=== PATIENT | female | born 1935 | race Caucasian/White ===

== ENCOUNTER → 2017-06-15 | Outpatient (CLI) | payer MEDICARE ==
[~2017-06-15] MED LIST: ACET-2303 PO; ALLP300T PO; AMLO10TA82 PO; AMLO1TAB2; ASP81TEC PO; ATEN100T88 PO; ATRV10T PO; B12; B12 INJECTION SQ; CALC-671; CALC-80 PO; CARV3.122 PO; CHOL2000 PO; CITA10TA70 PO; CYCL10TA9 PO; DIOVAN; DULO60CA6 PO; FURO40TA4 PO; K CL; LNS30CCR; NF-ESOM40C PO; PANT20TA2 PO; POTA20TA15 PO; PSYL1PAC15 PO; TERA2CAP4; TERA5CAP10 PO; VENL150C; VLS80C PO
== END ==
LOC: CARD 08:17
PROVIDERS: ATTEND Nurse Practitioner Family
DX: I65.23 Occlusion and stenosis of bilateral carotid arteries (principal); I10 Essential (primary) hypertension; E78.4 Other hyperlipidemia; I49.3 Ventricular premature depolarization
CPT/HCPCS: 93306

== ENCOUNTER 2018-01-25 07:41 | Day surgery (SDC) | payer MEDICARE ==
[~2018-01-25] VITALS: Ht 167.6 cm; Wt 108.9 kg
[~2018-01-25 07:41] MED LIST changes: +ACET-77 PO; +ALLO300T2 PO; +AMLO10TA2 PO; +ASPI-999 PO; +ATOR10TA66 PO; +CYAN100092 IJ; +CYCL1DRO OU; +DICL100G18 TP; +DOCU-143 PO; +DULO60CA58 PO; +FURO80TA3 PO; +PANT40TA2 PO; +POTA-51 PO; +TERA5CAP3 PO; +VALS160T29 PO
[2018-01-25 07:50] VITALS: BP 139/70
[2018-01-25] MEDS: TETRACAINE 0.5% OPHTH SOLN 4 ML BTL (SINGLE DOSE ONLY) OU PRN ×3 (08:08→08:26)
[2018-01-25] MEDS: PHENYLEPHRINE 10% OPHTH (NEO-SYN) 5 ML BTL OU PRN ×3 (08:11→08:25)
[2018-01-25] MEDS: TROPICAMIDE 1% OPH SOLN (MYDRIACYL) 15 ML BTL OU PRN ×3 (08:11→08:25)
--- NOTE | 2018-01-25 08:51 | Ophthalmology Operative Report ---
Pre-Operative Progress Note H&P Reviewed The H&P was reviewed, patient examined and no changes noted. Date H&P Reviewed: Jan 25, 2018 Time H&P Reviewed: 08:51 Pre-Op Dx Secondary Cataract, Bilateral Eyes JAMI CHRISTIE MD Jan 25, 2018 08:51
--- NOTE | 2018-01-25 09:00 | Ophthalmology Operative Report ---
YAG Capsulotomy PREOPERATIVE DIAGNOSIS: Secondary Cataract Bilateral POSTOPERATIVE DIAGNOSIS: Secondary Cataract Bilateral PROCEDURE: YAG Capsulotomy, Bilateral SURGEON: Ti Christie ANESTHESIA: Topical anesthesia COMPLICATIONS: None ESTIMATED BLOOD LOSS: Minimal DESCRIPTION OF PROCEDURE: After proper informed consent was obtained, the patient's, a 82 female , received one drop of Tropicamide and one drop of Tetracaine in each eye. The patient was then placed at the YAG laser and using a power of [3.8 ] millijoules and bursts [21 ] right eye and [ 24] left eye were used to fashion a central capsulotomy. The patient tolerated the procedure well without complications and the patient's pressure was [ 11/12] shortly after the laser. TI CHRISTIE MD Jan 25, 2018 09:00
== END 2018-01-25 09:00 | disposition home or self-care (01) ==
LOC: SDC 07:41
PROVIDERS: ATTEND Specialist
DX: H26.40 Unspecified secondary cataract (principal); I10 Essential (primary) hypertension; Z79.82 Long term (current) use of aspirin

== ENCOUNTER → 2018-02-19 | Outpatient (CLI) | payer MEDICARE ==
[~2018-02-19] MED LIST changes: +CATHETER FLUSH 10 ML SYR IV PRN; +IOHEXOL 350 MG/ML 100 ML (OMNIPAQUE 350) VIAL IV ONE; +NS 100 ML (IVPB) BAG IV ONE
[2018-02-19 11:37] LABS: BASOPHILS % (AUTO) 1 % (0-10); EOSINOPHILS # (AUTO) 0.1 10^3/uL (0.0-0.3); EOSINOPHILS % (AUTO) 2 % (0-10); HEMATOCRIT 38 % (35-52); HEMOGLOBIN 12.6 G/DL (11.5-16.0); LYMPHOCYTES # (AUTO) 1.3 X 10^3 (1.0-4.0); LYMPHOCYTES % (AUTO) 31 % (12-44); MEAN CORPUSCULAR HEMOGLOBIN 32 PG (25-34); MEAN CORPUSCULAR HGB CONC 33 G/DL (32-36); MEAN CORPUSCULAR VOLUME 98 FL (80-99); MEAN PLATELET VOLUME 11.1 FL (7.4-10.4); MONOCYTES # (AUTO) 0.5 X 10^3 (0.0-1.0); MONOCYTES % (AUTO) 13 % (0-12); NEUTROPHILS # (AUTO) 2.2 X 10^3 (1.8-7.8); NEUTROPHILS % (AUTO) 53 % (42-75); PLATELET COUNT 152 10^3/uL (130-400); RED CELL DISTRIBUTION WIDTH 13.3 % (10.0-14.5); WHITE BLOOD COUNT 4.1 10^3/uL (4.3-11.0)
[2018-02-19 11:55] LABS: ALANINE AMINOTRANSFERASE 25 U/L (0-55); ALBUMIN 4.3 GM/DL (3.2-4.5); ALKALINE PHOSPHATASE 93 U/L (40-136); BILIRUBIN,TOTAL 0.6 MG/DL (0.1-1.0); BUN/CREATININE RATIO 27; CALCIUM 9.6 MG/DL (8.5-10.1); CARBON DIOXIDE 26 MMOL/L (21-32); CHLORIDE 108 MMOL/L (98-107); CREATININE SERUM 0.85 MG/DL (0.60-1.30); GFR ESTIMATED > 60; GLUCOSE 118 MG/DL (70-105); POTASSIUM 5.2 MMOL/L (3.6-5.0); SODIUM 142 MMOL/L (135-145); TOTAL PROTEIN 7.2 GM/DL (6.4-8.2)
--- NOTE | 2018-02-19 14:19 | Diagnostic Imaging Report ---
PROCEDURE: CT head with and without contrast. TECHNIQUE: Multiple contiguous axial images were obtained through the brain before and after the administration of intravenous contrast. INDICATION: Loss of balance, visual complaints two months' duration. COMPARISON: No priors. Pre and post IV contrast-enhanced head CT performed. FINDINGS: There is an incidental ventricular variant with cavum septum pellucidum. There is no hydrocephalus. Cerebral cortical volume is unremarkable for age and there is only mild periventricular white matter small vessel sequela unremarkable in a patient of this age. Mild intracranial atherosclerotic vascular calcifications are present. No suspicious parenchymal or meningeal enhancement following contrast is revealed. Orbits, sinuses, and calvarium appear nonacute. IMPRESSION: Mild senescent changes unremarkable for age and incidental ventricular variant noted. No acute or suspicious abnormality. Dictated by: Dictated on workstation # [id number]
--- NOTE | 2018-02-19 14:21 | Diagnostic Imaging Report ---
INDICATION: Loss of balance, visual complaints. COMPARISON: No priors for comparison. TECHNIQUE: Pre-and post IV contrast enhanced CT orbits and IACs performed with multiplanar reconstructions. FINDINGS: There is no post-septal or retrobulbar inflammatory process. The optic nerves, extraocular muscles and their tendinous attachments appear normal. No proptosis. No distortion of the intra-or extraconal orbital fat. The anterior and posterior felipe of the frontal sinuses are intact. Nasal septum and nasal bones unremarkable. The ethmoid air cells are clear and well expanded. The sphenoid sinuses are clear. The maxillary sinuses are clear. There is no mastoid effusion. Ossicular chains and middle ear cavities appeared unremarkable. The external auditory canals unremarkable. There are arthritic changes to the left greater than right temporomandibular joints without osseous dislocation of the TMJs. The zygomatic arches were intact. The nasopharynx appeared unremarkable. There is intracranial atherosclerotic vascular calcifications chronic. No soft tissue mass or fluid collection. No appreciable facial lymphadenopathy. No CT apparent cerebellopontine angle mass or mass effect. There is enhancement of the intrathecal vertebrals, the basilar and the visualized DRAIN CLEANER segments. IMPRESSION: Unremarkable pre-and post-IV contrast-enhanced facial CT. Dictated by: Dictated on workstation # [id number]
== END ==
LOC: RAD 11:21
PROVIDERS: ATTEND Optometrist
DX: H53.459 Other localized visual field defect, unspecified eye (principal); R26.9 Unspecified abnormalities of gait and mobility
CPT/HCPCS: 36415; 70470; 70482; 80053; 82565; 84520; 85025

== ENCOUNTER → 2018-12-26 | Outpatient (CLI) | payer MEDICARE ==
[~2018-12-26] MED LIST changes: -AMLO10TA2 PO; +AMLO10TA7 PO; -CATHETER FLUSH 10 ML SYR IV PRN; -IOHEXOL 350 MG/ML 100 ML (OMNIPAQUE 350) VIAL IV ONE; -NS 100 ML (IVPB) BAG IV ONE
--- NOTE | 2018-12-26 14:18 | Diagnostic Imaging Report ---
PROCEDURE: MRI left upper extremity without contrast. TECHNIQUE: Multiplanar, multisequence non contrast-enhanced MRI of the left upper extremity was accomplished. INDICATION: Chronic left shoulder pain for 2 years. No known injury. COMPARISON: None FINDINGS: No acute fractures seen in the left shoulder. There are severe degenerative changes in the glenohumeral joint with complete joint space loss, prominent osteophytes, and remodeling of the articular surfaces. There are moderate degenerative changes in the acromioclavicular joint. There is a large glenohumeral joint effusion with marked distention of the superior subscapularis recess and the proximal long head of the biceps tendon sheath. Multiple joint bodies are seen, which are mostly posterior, however there is a very large joint body measuring up to 2.8 cm in size in the superior subscapularis recess. The supraspinatus tendon demonstrates mild tendinosis with low-grade partial thickness tearing at the undersurface. The infraspinatus tendon demonstrates low-grade partial thickness tearing distally. The teres minor tendon is intact. The subscapularis tendon is bowed, but appears to remain intact. The long head of the biceps tendon appears intact. There is extensive degenerative tearing throughout the glenoid labrum. No para-labral cyst is seen. The spinoglenoid and suprascapular notches are clear. The acromion has a curved undersurface without significant hooking. The coracoacromial and coracoclavicular ligaments are intact. There is moderate atrophy of the supraspinatus muscle and mild generalized muscular atrophy present. No other fluid collections or masses are seen. There is no axillary lymphadenopathy. IMPRESSION: 1. Severe degenerative changes in the left glenohumeral joint with articular surface remodeling. 2. Very large glenohumeral joint effusion with a large anterior joint body. 3. Low-grade partial thickness tears in the supraspinatus and infraspinatus tendon with no high-grade partial-thickness or full-thickness rotator cuff tear seen. 4. Moderate atrophy of the supraspinatus muscle superimposed on mild generalized muscular atrophy. Dictated by: Dictated on workstation # [id number]
== END ==
LOC: RAD 12:31
PROVIDERS: ATTEND Family Medicine
DX: M75.102 Unspecified rotator cuff tear or rupture of left shoulder, not specified as traumatic (principal); M19.012 Primary osteoarthritis, left shoulder
CPT/HCPCS: 73221

== ENCOUNTER → 2019-01-20 | Outpatient (CLI) | payer MEDICARE | LOC: ORTHO 13:12 | PROVIDERS: ATTEND Orthopaedic Surgery | DX: M75.112 Incomplete rotator cuff tear or rupture of left shoulder, not specified as traumatic (principal); M19.012 Primary osteoarthritis, left shoulder ==

== ENCOUNTER 2019-03-20 12:54 | Outpatient (RCR) | payer MEDICARE ==
[~2019-03-20 12:54] MED LIST changes: -DULO60CA58 PO; +DULO60CA59 PO
== END 2019-04-16 08:22 | disposition home or self-care (01) ==
PROVIDERS: ATTEND Orthopaedic Surgery
DX: M17.12 Unilateral primary osteoarthritis, left knee (principal); M51.36 Other intervertebral disc degeneration, lumbar region

== ENCOUNTER 2019-05-14 13:52 | Outpatient (RCR) | payer MEDICARE | END 2019-06-10 14:13 | disposition home or self-care (01) | PROVIDERS: ATTEND Physician Assistant | DX: Z47.1 Aftercare following joint replacement surgery (principal); Z96.652 Presence of left artificial knee joint ==

== ENCOUNTER → 2019-06-19 | Outpatient (CLI) | payer MEDICARE ==
[~2019-06-19] MED LIST changes: +CATHETER FLUSH 10 ML SYR IV PRN
--- NOTE | 2019-06-19 12:50 | Diagnostic Imaging Report ---
INDICATION: Nausea. TECHNIQUE: Patient was administered 5.3 mCi technetium 99m Choletec intravenously and imaging over the abdomen was performed. At 45 minutes, patient ingested 8 ounces of Ensure and a gallbladder ejection fraction was calculated. FINDINGS: There is homogeneous uptake of activity by the liver with prompt excretion of activity into the common duct and gallbladder. Normal passage of activity into the small bowel is seen. Gallbladder ejection fraction is slightly low at 32%. Normal values are 33% or greater. IMPRESSION: 1. Patent cystic duct and common bile duct. 2. Slightly low gallbladder ejection fraction of 32%. Dictated by: Dictated on workstation # [id number]
== END ==
LOC: CARD 09:43
PROVIDERS: ATTEND Family Medicine
DX: R11.0 Nausea (principal)
CPT/HCPCS: 78227

== ENCOUNTER 2019-07-14 05:30 | Outpatient (CLI) | payer MEDICARE ==
[~2019-07-14] VITALS: Ht 160 cm; Wt 103.2 kg
[~2019-07-14 05:30] MED LIST changes: -CATHETER FLUSH 10 ML SYR IV PRN
[2019-07-14] MEDS ORDERED: RANI-613 PO (10:37)
[2019-07-14] MEDS ORDERED: LOSA100T3 PO (10:37)
[2019-07-17] MEDS ORDERED: HYDR-34 PO (12:36)
[2019-07-17] MEDS ORDERED: CARB1TAB6 PO (13:16)
== END 2019-07-14 10:40 | disposition home or self-care (01) ==
LOC: PREOP 05:30
PROVIDERS: ATTEND Surgery
DX: Z01.818 Encounter for other preprocedural examination (principal)

== ENCOUNTER 2020-11-10 15:15 | Emergency (ER) | payer MEDICARE ==
[~2020-11-10] VITALS: Ht 167.7 cm; Wt 108.9 kg
[~2020-11-10 15:15] MED LIST changes: -ACET-77 PO; +ACET-78 PO; +AMLO-251 PO; -AMLO10TA7 PO; +CARB1TAB6 PO; +HYDR-34 PO; +LOSA100T3 PO; +RANI-613 PO; -TERA5CAP3 PO
--- NOTE | 2020-11-10 15:43 | ED Cardiac General ---
History of Present Illness General Stated Complaint: AFLUTTER / HIGH BLOOD PRESSURE 180/80 History of Present Illness Date Seen by Provider: Nov 10, 2020 Time Seen by Provider: 15:20 Initial Comments 85-year-old female presents for hypertension and flutter in her chest. She has a longstanding cardiac history and sees Dr. Arita for her blood pressure and CAD. 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 She denies any chest pain. She does report shortness of air with any aggressive activity but she is also complaining of mild discomfort in her left upper abdomen related to hiatal hernia, she is aware it needs surgery. She has been under more stressors lately related to her son passing 6 months ago. She has taken Cymbalta for many years and is wondering if the added life events might require additional medication. Timing/Duration: 2-3 days Prior CP/Workup: cardiac cath NTG SL STORE DETECTIVE: No ASA po STORE DETECTIVE: No Associated Systoms: No Chest Pain; Malaise, Shortness of Air (with activity and related to hernia) Allergies and Home Medications Allergies Coded Allergies: No Known Drug Allergies (Unverified , 01/23/18) Home Medications Acetaminophen 500 Mg Tablet, 1,000 MG PO Q6H PRN for PAIN-MILD (1-4), (Reported) Allopurinol 300 Mg Tablet, 300 MG PO DAILY, (Reported) Alprazolam 0.25 Mg Tablet, 0.25 MG PO Q8H PRN for ANXIETY 1/2 to 1 tablet prn anxiety Prescribed by: MAX ABERNATHY on 11/10/20 5568 Amlodipine Besylate 10 Mg Tablet, 10 MG PO DAILY, (Reported) Aspirin 81 Mg Tab.chew, 81 MG PO DAILY, (Reported) Atorvastatin Calcium 10 Mg Tablet, 10 MG PO HS, (Reported) Carbidopa/Levodopa 1 Each Tablet, 1 EACH PO DAILY, (Reported) Carvedilol 3.125 Mg Tablet, 3.125 MG PO BID, (Reported) Cyanocobalamin (Vitamin B-12) 1,000 Mcg/1 Ml Kit, 1,000 MCG IJ monthly, (Reported) Docusate Sodium 100 Mg Capsule, 100 MG PO DAILY PRN for CONSTIPATION-1ST LINE, (Reported) Duloxetine HCl 60 Mg Capsule.dr, 60 MG PO DAILY, (Reported) Furosemide 80 Mg Tablet, 80 MG PO DAILY, (Reported) Hydrocodone Bit/Acetaminophen 1 Ea Tablet, 1 EACH PO Q4H PRN for PAIN-MODERATE Prescribed by: ROSEMARY RIVERA on 07/17/19 1236 Losartan Potassium 100 Mg Tablet, 100 MG PO DAILY, (Reported) Pantoprazole Sodium 40 Mg Tablet.dr, 40 MG PO DAILY, (Reported) Potassium Chloride 20 Meq Tablet.er, 20 MEQ PO DAILY, (Reported) Terazosin HCl 5 Mg Capsule, 5 MG PO DAILY, (Reported) Patient Home Medication List Home Medication List Reviewed: Yes Review of Systems Review of Systems Constitutional: no symptoms reported, see HPI EENTM: No Symptoms Reported, See HPI Respiratory: See HPI, Shortness of Air (With activity) Cardiovascular: Other (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) Gastrointestinal: See HPI, Abdominal Pain (Minimal left upper quadrant) Genitourinary: No Symptoms Reported, See HPI Musculoskeletal: no symptoms reported, see HPI All Other Systems Reviewed Negative Unless Noted: Yes Past Qjwzjzl-Jukqbc-Tiymol Hx Past Med/Social Hx: Reviewed Nursing Past Med/Soc Hx Patient Social History 2nd Hand Smoke Exposure: No Recent Hopitalizations: No Immunizations Up To Date Date of Pneumonia Vaccine: Feb 17, 2010 Date of Influenza Vaccine: Apr 29, 2019 Seasonal Allergies Seasonal Allergies: No Past Medical History Surgeries: Yes (R total hip, R TKR, lap hill, A&P repair) Appendectomy, Hysterectomy Respiratory: Yes Sleep Apnea Currently Using CPAP: Yes (AT HOME AT NIGHT) Cardiac: Yes (PVC"S) High Cholesterol, 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 Neurological: No 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 Disorders: Yes (endometriosis) Female 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 Disorders: Endometriosis 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 0.0oz. 108.603118ul; 40.31 BMI Method: General Appearance: No Apparent Distress, WD/WN HEENT: PERRL/EOMI, TMs Normal, Normal ENT Inspection, Pharynx Normal Neck: Full Range of Motion, Normal Inspection, Non Tender, Supple Respiratory: Chest Non Tender, Lungs Clear, Normal Breath Sounds Cardiovascular: Regular Rate, Rhythm, No Murmur, Normal Peripheral Pulses Gastrointestinal: Normal Bowel Sounds, Non Tender, Soft Extremity: Normal Capillary Refill, Normal Inspection, Normal Range of Motion, Non Tender, No Calf Tenderness, No Pedal Edema Neurologic/Psychiatric: Alert, Oriented x3, No Motor/Sensory Deficits, Normal Mood/Affect Skin: Normal Color, Warm/Dry Progress/Results/Core Measures Results/Orders Lab Results Laboratory Tests Test 11/10/20 15:40 11/10/20 16:17 Range/Units White Blood Count 5.0 4.3-11.0 10^3/uL Red Blood Count 4.12 3.80-5.11 10^6/uL Hemoglobin 12.9 11.5-16.0 g/dL Hematocrit 39 35-52 % Mean Corpuscular Volume 95 80-99 fL Mean Corpuscular Hemoglobin 31 25-34 pg Mean Corpuscular Hemoglobin Concent 33 32-36 g/dL Red Cell Distribution Width 13.6 10.0-14.5 % Platelet Count 170 130-400 10^3/uL Mean Platelet Volume 11.1 9.0-12.2 fL Immature Granulocyte % (Auto) 1 % Neutrophils (%) (Auto) 53 42-75 % Lymphocytes (%) (Auto) 33 12-44 % Monocytes (%) (Auto) 11 0-12 % Eosinophils (%) (Auto) 1 0-10 % Basophils (%) (Auto) 1 0-10 % Neutrophils # (Auto) 2.6 1.8-7.8 X 10^3 Lymphocytes # (Auto) 1.6 1.0-4.0 X 10^3 Monocytes # (Auto) 0.6 0.0-1.0 X 10^3 Eosinophils # (Auto) 0.1 0.0-0.3 10^3/uL Basophils # (Auto) 0.1 0.0-0.1 10^3/uL Immature Granulocyte # (Auto) 0.1 0.0-0.1 10^3/uL Prothrombin Time 13.1 12.2-14.7 SEC INR Comment 1.0 0.8-1.4 Activated Partial Thromboplast Time 30 24-35 SEC Sodium Level 139 135-145 MMOL/L Potassium Level 3.9 3.6-5.0 MMOL/L Chloride Level 100 98-107 MMOL/L Carbon Dioxide Level 25 21-32 MMOL/L Anion Gap 14 5-14 MMOL/L Blood Urea Nitrogen 18 7-18 MG/DL Creatinine 0.79 0.60-1.30 MG/DL Estimat Glomerular Filtration Rate > 60 BUN/Creatinine Ratio 23 Glucose Level 109 H 70-105 MG/DL Calcium Level 9.3 8.5-10.1 MG/DL Corrected Calcium 8.9 8.5-10.1 MG/DL Magnesium Level 2.3 1.6-2.4 MG/DL Total Bilirubin 0.7 0.1-1.0 MG/DL Aspartate Amino Transf (AST/SGOT) 22 5-34 U/L Alanine Aminotransferase (ALT/SGPT) 24 0-55 U/L Alkaline Phosphatase 128 40-136 U/L Myoglobin 64.0 10.0-92.0 NG/ML Troponin I < 0.028 <0.028 NG/ML B-Type Natriuretic Peptide 53.0 <100.0 PG/ML Total Protein 7.1 6.4-8.2 GM/DL Albumin 4.5 3.2-4.5 GM/DL Urine Color YELLOW Urine Clarity CLEAR Urine pH 7.0 5-9 Urine Specific [place] 1.010 L 1.016-1.022 Urine Protein NEGATIVE NEGATIVE Urine Glucose (UA) NEGATIVE NEGATIVE Urine Ketones NEGATIVE NEGATIVE Urine Nitrite NEGATIVE NEGATIVE Urine Bilirubin NEGATIVE NEGATIVE Urine Urobilinogen 0.2 < = 1.0 MG/DL Urine Leukocyte Esterase NEGATIVE NEGATIVE Urine RBC (Auto) NEGATIVE NEGATIVE Urine RBC NONE /HPF Urine WBC RARE /HPF Urine Squamous Epithelial Cells RARE /HPF Urine Crystals NONE /LPF Urine Bacteria NEGATIVE /HPF Urine Casts NONE /LPF Urine Mucus NEGATIVE /LPF Urine Culture Indicated NO My Orders Orders - MAX ABERNATHY Cbc With Automated Diff (11/10/20 15:18) Magnesium (11/10/20 15:18) Chest 1 View, Ap/Pa Only (11/10/20 15:18) Ekg Tracing (11/10/20 15:18) Comprehensive Metabolic Panel (11/10/20 15:18) Myoglobin Serum (11/10/20 15:18) Protime With Inr (11/10/20 15:18) Partial Thromboplastin Time (11/10/20 15:18) O2 (11/10/20 15:18) Monitor-Rhythm Ecg Trace Only (11/10/20 15:18) Ed Iv/Invasive Line Start (11/10/20 15:18) BNP (11/10/20 15:18) Troponin I (11/10/20 15:18) Ua Culture If Indicated (11/10/20 15:32) Hydralazine Injection (Apresoline Inject (11/10/20 15:45) Alprazolam Tablet (Xanax Tablet) (11/10/20 17:30) Medications Given in ED Current Medications Medications Dose Ordered Sig/Bulmaro Route Start Time Stop Time Status Last Admin Dose Admin Alprazolam 0.25 mg ONCE ONCE PO 11/10/20 17:30 11/10/20 17:46 DC 11/10/20 17:28 0.25 MG Hydralazine HCl 5 mg ONCE ONCE IV 11/10/20 15:45 11/10/20 15:46 DC 11/10/20 15:41 5 MG Vital Signs/I&O 11/10/20 11/10/20 15:15 17:27 Temp 36.8 Pulse 56 60 Resp 22 20 B/P (MAP) 192/92 (125) 168/82 Pulse Ox 98 O2 Delivery Room Air Progress Progress Note : Time: 15:20 Progress Note pt seen and evaluated, will obtain labs, ekg, CXR. Hydralazine 5 mg IV. 1600 B/P improved but labile 140/80. Denies chest pain or complaints at this time. Daughter at bedside. 1630 Patient sitting up in Wheelchair, no requests. 1700 reviewed labs with patient and daughter. Discussed the stress and anxiety she is experiencing. She sees Dr. Sam next week and will discuss adjusting her Cymbalta at that time. She is willing to try Xanax at a low dose, discussed this with Dr. Sam and she will approve getting it filled at [facility]. She has not been able to attend [facility] for 1 year but has spoken to a communications coordinator and watches it on TV. Discharge instructions and return precautions reviewed with the patient in detail. All questions answered. Initial ECG Impression Date: Nov 10, 2020 Initial ECG Impression Time: 15:26 Initial ECG Rate: 57 Initial ECG Rhythm: A Fib/Flutter Initial ECG Intervals GA 195, QRSD 110, QT 443, QTc 432. [place] P 46, QRS 9, T 48. Initial ECG Impression: Normal Initial ECG Comparisson: Unchanged Diagnostic Imaging Diagonstic Imaging: Xray Plain Films/CT/US/NM/MRI: chest Comments NAME: DAISHA [facility]ELIUS [facility] REC#: [id number] PT STATUS: REG ER : 1935 PHYSICIAN: MAX ABERNATHY ADMIT DATE: 11/10/20/ER Signed Date of Exam:11/10/20 CHEST 1 VIEW, AP/PA ONLY Indication: Chest pain Portable chest 4:31 PM Heart size and pulmonary vascularity are normal. Lungs are clear. There are no effusions or pneumothoraces. IMPRESSION: Negative chest Dictated by: Dictated on workstation # [id number] Dict: 11/10/20 1634 Trans: 11/10/20 1634 [id number] Interpreted by: ADELITA ALEXIS MD Electronically signed by: ADELITA ALEXIS MD 11/10/20 1634 Departure Impression Primary Impression: Labile hypertension Additional Impression: Anxiety and depression Disposition: 01 HOME, SELF-CARE Condition: Improved Departure-Patient Inst. Decision time for Depature: 16:55 Referrals: CAROL SAM MD (PCP/Family) Primary Care Physician Patient Instructions: Anxiety, Adult (DC), High Blood Pressure (DC) Add. Discharge Instructions: Continue to take your home medications as prescribed by your picture frame maker and primary care provider. Use the Xanax 1/2 to 1 tablet every 8 hours as needed for anxiety or stress. Follow-up with your picture frame maker and primary care provider next week as scheduled. Return to the emergency department for chest pain, shortness of breath, or other urgent healthcare needs. Scripts Alprazolam (Xanax) 0.25 Mg Tablet 0.25 MG PO Q8H PRN for ANXIETY, #20 TAB 2 Refills 1/2 to 1 tablet prn anxiety Prov: MAX ABERNATHY 11/10/20 Copy Copies To 1: CAROL SAM MD; ROMAN TORRES MD FACP FACC CCDS MAX ABERNATHY Nov 10, 2020 15:43
[2020-11-10] MEDS ORDERED: hydrALAZINE (APESOLINE) 20 MG/ML VIAL IV ONE (15:45)
[2020-11-10 15:55] LABS: BASOPHILS # (AUTO) 0.1 10^3/uL (0.0-0.1); BASOPHILS % (AUTO) 1 % (0-10); EOSINOPHILS # (AUTO) 0.1 10^3/uL (0.0-0.3); EOSINOPHILS % (AUTO) 1 % (0-10); HEMATOCRIT 39 % (35-52); HEMOGLOBIN 12.9 g/dL (11.5-16.0); LYMPHOCYTES # (AUTO) 1.6 X 10^3 (1.0-4.0); LYMPHOCYTES % (AUTO) 33 % (12-44); MEAN CORPUSCULAR HEMOGLOBIN 31 pg (25-34); MEAN CORPUSCULAR HGB CONC 33 g/dL (32-36); MEAN CORPUSCULAR VOLUME 95 fL (80-99); MEAN PLATELET VOLUME 11.1 fL (9.0-12.2); MONOCYTES # (AUTO) 0.6 X 10^3 (0.0-1.0); MONOCYTES % (AUTO) 11 % (0-12); NEUTROPHILS # (AUTO) 2.6 X 10^3 (1.8-7.8); NEUTROPHILS % (AUTO) 53 % (42-75); PLATELET COUNT 170 10^3/uL (130-400)
[2020-11-10 16:03] LABS: ALBUMIN 4.5 GM/DL (3.2-4.5)
[2020-11-10 16:04] LABS: CHLORIDE 100 MMOL/L (98-107); POTASSIUM 3.9 MMOL/L (3.6-5.0); SODIUM 139 MMOL/L (135-145)
[2020-11-10 16:05] LABS: CALCIUM 9.3 MG/DL (8.5-10.1)
[2020-11-10 16:06] LABS: GLUCOSE 109 MG/DL (70-105); TOTAL PROTEIN 7.1 GM/DL (6.4-8.2)
[2020-11-10 16:07] LABS: CARBON DIOXIDE 25 MMOL/L (21-32)
[2020-11-10 16:08] LABS: BILIRUBIN,TOTAL 0.7 MG/DL (0.1-1.0); PROTHROMBIN TIME PATIENT 13.1 SEC (12.2-14.7)
[2020-11-10 16:09] LABS: ALKALINE PHOSPHATASE 128 U/L (40-136)
[2020-11-10 16:10] LABS: CREATININE SERUM 0.79 MG/DL (0.60-1.30); GFR ESTIMATED > 60
[2020-11-10 16:11] LABS: BUN/CREATININE RATIO 23
[2020-11-10 16:12] LABS: ALANINE AMINOTRANSFERASE 24 U/L (0-55); MAGNESIUM 2.3 MG/DL (1.6-2.4)
[2020-11-10 16:22] LABS: BILIRUBIN,URINE NEGATIVE (NEGATIVE); CLARITY,URINE CLEAR; COLOR,URINE YELLOW; GLUCOSE, URINE (UA) NEGATIVE (NEGATIVE); KETONES,URINE NEGATIVE (NEGATIVE); LEUKOCYTE ESTERASE ,URINE NEGATIVE (NEGATIVE); NITRITE,URINE NEGATIVE (NEGATIVE); PROTEIN,URINE NEGATIVE (NEGATIVE)
--- NOTE | 2020-11-10 16:36 | Diagnostic Imaging Report ---
Indication: Chest pain Portable chest 4:31 PM Heart size and pulmonary vascularity are normal. Lungs are clear. There are no effusions or pneumothoraces. IMPRESSION: Negative chest Dictated by: Dictated on workstation # [id number]
[2020-11-10 16:38] LABS: BACTERIA,URINE NEGATIVE /HPF; SQUAMOUS EPITHELIAL CELL,UR RARE /HPF; WBC,URINE RARE /HPF
[2020-11-10] MEDS ORDERED: ALPR0.25 PO (17:13)
[2020-11-10 17:27] VITALS: BP 168/82
[2020-11-10] MEDS ORDERED: ALPRAZolam 0.25 MG (XANAX) TAB PO ONE (17:30)
== END 2020-11-10 17:27 | disposition home or self-care (01) ==
LOC: EDUNIT# 15:15 → ER 15:17
DX: I10 Essential (primary) hypertension (principal); F41.9 Anxiety disorder, unspecified; F32.9 Major depressive disorder, single episode, unspecified; E78.00 Pure hypercholesterolemia, unspecified; K21.9 Gastro-esophageal reflux disease without esophagitis; Z79.82 Long term (current) use of aspirin
CPT/HCPCS: 36415; 71045; 80053; 81000; 83735; 83874; 83880; 84484; 85025; 85610; 85730; 93005; 93041

== ENCOUNTER 2021-11-30 08:13 | Inpatient (IN) | payer MEDICARE ==
[2021-11-30] VITALS (11 sets, daily range): BP systolic 121–207; BP diastolic 57–89
[~2021-11-30] VITALS: Ht 160 cm; Wt 110.0 kg
[~2021-11-30 08:13] MED LIST changes: +ALPR0.25 PO; +CARB-275 PO; -CARB1TAB6 PO
--- NOTE | 2021-11-30 08:49 | ED Cardiac General ---
History of Present Illness General Chief Complaint: Cardiac/General Problems Stated Complaint: LOW HEART RATE Source: patient, family Exam Limitations: no limitations History of Present Illness Date Seen by Provider: November 30, 2021 Time Seen by Provider: 08:20 Initial Comments Patient is a an 86-year-old female who presents to the emergency department today with a chief complaint of "low heartbeat". Her daughter is also present in the room and provides history. Patient has been having episodes of lower heart rates over the past several weeks to a couple of months. She has been working with her primary care provider at [facility] to adjust her medications. She was just taken off her Coreg completely yesterday. She adamantly denies any chest pain. She does have chronic shortness of breath with exertion. No excessive swelling to her lower extremities. No nausea, vomiting, GI or symptoms. She has been having fairly recent onset of low back pain at her waistline. She states she feels like she has to walk bent over a little bit. No reports of trauma/falls. No numbness tingling or weakness in her lower extremities. She feels very lightheaded and generally weak. Blood pressure is great if not a bit hypertensive at presentation. 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 She is compliant with her daily medications although she has not taken any of her morning medicines this morning. All other review of systems reviewed and negative except as stated. Timing/Duration: constant, other (2-3 weeks) NTG SL STRINGING MACHINE TENDER: No ASA po STRINGING MACHINE TENDER: No Associated Systoms: Weakness, Other (back pain) Allergies and Home Medications Allergies Coded Allergies: No Known Drug Allergies (Unverified , 01/23/18) Patient Home Medication List Home Medication List Reviewed: Yes Acetaminophen (Acetaminophen) 500 Mg Tablet, 1,000 MG PO Q6H PRN for PAIN-MILD (1-4), (Reported) Entered as Reported by: LALITA SERRATO on 01/23/18 1401 Allopurinol (Allopurinol) 300 Mg Tablet, 300 MG PO DAILY, (Reported) Entered as Reported by: LALITA SERRATO on 01/23/18 1401 Alprazolam (Xanax) 0.25 Mg Tablet, 0.25 MG PO Q8H PRN for ANXIETY Prescribed by: MAX ABERNATHY on 11/10/20 5954 Amlodipine Besylate (Amlodipine Besylate) 10 Mg Tablet, 10 MG PO DAILY, (Reported) Entered as Reported by: LALITA SERRATO on 01/23/18 140 Aspirin (Aspirin) 81 Mg Tab.chew, 81 MG PO DAILY, (Reported) Entered as Reported by: LALITA SERRATO on 01/23/18 1401 Atorvastatin Calcium (Atorvastatin Calcium) 10 Mg Tablet, 10 MG PO HS, (Reported ) Entered as Reported by: LALITA SERRATO on 01/23/18 1401 Carbidopa/Levodopa (Sinemet 25-100 mg Tablet) 1 Each Tablet, 1 EACH PO DAILY, (Reported) Entered as Reported by: CHAD VELAZQUEZ on 07/17/19 1316 Carvedilol (Carvedilol) 3.125 Mg Tablet, 3.125 MG PO BID, (Reported) Entered as Reported by: LALITA SERRATO on 01/23/18 140 Cyanocobalamin (Vitamin B-12) (B-12 Compliance) 1,000 Mcg/1 Ml Kit, 1,000 MCG IJ monthly, (Reported) Entered as Reported by: LALITA SERRATO on 01/23/18 1404 Docusate Sodium (Colace) 100 Mg Capsule, 100 MG PO DAILY PRN for CONSTIPATION- 1ST LINE, (Reported) Entered as Reported by: LALITA SERARTO on 01/23/18 1403 Duloxetine HCl (Duloxetine HCl) 60 Mg Capsule.dr, 60 MG PO DAILY, (Reported) Entered as Reported by: LALITA SERRATO on 01/23/18 1401 Furosemide (Furosemide) 80 Mg Tablet, 80 MG PO DAILY, (Reported) Entered as Reported by: LALITA SERRATO on 01/23/18 1401 Hydrocodone Bit/Acetaminophen (Lortab 7.5 Mg Tablet) 1 Ea Tablet, 1 EACH PO Q4H PRN for PAIN-MODERATE Prescribed by: ROSEMARY RIVERA on 07/17/19 1236 Losartan Potassium (Cozaar) 100 Mg Tablet, 100 MG PO DAILY, (Reported) Entered as Reported by: LALITA SERRATO on 07/14/19 1037 Pantoprazole Sodium (Protonix) 40 Mg Tablet.dr, 40 MG PO DAILY, (Reported) Entered as Reported by: LALITA SERRATO on 01/23/18 1403 Potassium Chloride (Potassium Chloride) 20 Meq Tablet.er, 20 MEQ PO DAILY, (Reported) Entered as Reported by: LALITA SERRATO on 01/23/18 1401 Terazosin HCl (Terazosin HCl) 5 Mg Capsule, 5 MG PO DAILY, (Reported) Entered as Reported by: LALITA SERRATO on 01/23/18 1401 Review of Systems Review of Systems Constitutional: see HPI, malaise, weakness EENTM: No Symptoms Reported Respiratory: No Symptoms Reported Cardiovascular: Other (low heart beat) Gastrointestinal: No Symptoms Reported Genitourinary: No Symptoms Reported Musculoskeletal: back pain ("at the waist") Skin: no symptoms reported Psychiatric/Neurological: Weakness All Other Systems Reviewed Negative Unless Noted: Yes Past Wusrtli-Ubyfum-Jsealp Hx Seasonal Allergies Seasonal Allergies: No Past Medical History Surgeries: Yes (R total hip, R TKR, lap hill, A&P repair, hernia repair) Appendectomy, Hysterectomy Respiratory: Yes Sleep Apnea Currently Using CPAP: Yes (AT HOME AT NIGHT) Cardiac: Yes (PVCS) High Cholesterol, 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 Neurological: No 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 Disorders: Yes (endometriosis) Female 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 Disorders: 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 0.0oz. [id number]; 38.00 BMI Method: General Appearance: No Apparent Distress, WD/WN HEENT: PERRL/EOMI Neck: Normal Inspection Respiratory: Lungs Clear, Normal Breath Sounds, No Accessory Muscle Use, No Respiratory Distress Cardiovascular: Normal Peripheral Pulses, Bradycardia (upper 30's low 40's) Gastrointestinal: Non Tender, Soft Extremity: Normal Inspection, Normal Range of Motion, Pedal Edema (1+ bilateral) Neurologic/Psychiatric: Alert, Oriented x3, No Motor/Sensory Deficits, Normal Mood/Affect, return checker II-XII Norm as Tested Skin: Normal Color, Warm/Dry Progress/Results/Core Measures Results/Orders Lab Results Laboratory Tests Test 11/30/21 08:45 11/30/21 08:49 Range/Units White Blood Count 6.3 4.3-11.0 10^3/uL Red Blood Count 4.01 3.80-5.11 10^6/uL Hemoglobin 12.4 11.5-16.0 g/dL Hematocrit 38 35-52 % Mean Corpuscular Volume 95 80-99 fL Mean Corpuscular Hemoglobin 31 25-34 pg Mean Corpuscular Hemoglobin Concent 33 32-36 g/dL Red Cell Distribution Width 13.6 10.0-14.5 % Platelet Count 167 130-400 10^3/uL Mean Platelet Volume 11.5 9.0-12.2 fL Immature Granulocyte % (Auto) 1 % Neutrophils (%) (Auto) 55 42-75 % Lymphocytes (%) (Auto) 31 12-44 % Monocytes (%) (Auto) 10 0-12 % Eosinophils (%) (Auto) 3 0-10 % Basophils (%) (Auto) 1 0-10 % Neutrophils # (Auto) 3.5 1.8-7.8 10^3/uL Lymphocytes # (Auto) 1.9 1.0-4.0 10^3/uL Monocytes # (Auto) 0.7 0.0-1.0 10^3/uL Eosinophils # (Auto) 0.2 0.0-0.3 10^3/uL Basophils # (Auto) 0.0 0.0-0.1 10^3/uL Immature Granulocyte # (Auto) 0.1 0.0-0.1 10^3/uL Sodium Level 142 135-145 MMOL/L Potassium Level 4.2 3.6-5.0 MMOL/L Chloride Level 105 98-107 MMOL/L Carbon Dioxide Level 19 L 21-32 MMOL/L Anion Gap 18 H 5-14 MMOL/L Blood Urea Nitrogen 35 H 7-18 MG/DL Creatinine 0.88 0.60-1.30 MG/DL Estimat Glomerular Filtration Rate 64 BUN/Creatinine Ratio 40 Glucose Level 165 H 70-105 MG/DL Calcium Level 9.3 8.5-10.1 MG/DL My Orders Orders - RONALDO FARRIS MD Ekg Tracing (11/30/21 08:22) Ed Iv/Invasive Line Start (11/30/21 08:46) Cbc With Automated Diff (11/30/21 08:46) Basic Metabolic Panel (11/30/21 08:46) Protime With Inr (11/30/21 08:46) Partial Thromboplastin Time (11/30/21 08:46) Chest 1 View, Ap/Pa Only (11/30/21 08:46) Ekg Tracing (11/30/21 08:46) Ekg Tracing (11/30/21 08:48) Vital Signs/I&O 11/30/21 08:53 Temp 35.2 Pulse 39 Resp 16 B/P (MAP) 201/80 (120) Pulse Ox 93 Initial ECG Impression Date: November 30, 2021 Initial ECG Impression Time: 08:24 Initial ECG Rate: 43 Comment Bradycardic in the 40s, possibly slow A. fib, not third-degree heart block. EKG is reviewed with Dr. Sherman EKG : EKG Time: 08:38 Rate: 38 ECG Comparisson: Unchanged Comment Bradycardic at 38, PVC noted as on previous. Irregular R to R complexes Diagnostic Imaging Diagonstic Imaging: Xray Plain Films/CT/US/NM/MRI: chest Comments [facility], [place] NAME: DAISHA [facility] REC#: [id number] PT STATUS: REG ER : 1935 PHYSICIAN: RONALDO FARRIS MD ADMIT DATE: 11/30/21/ER Draft Date of Exam:11/30/21 CHEST 1 VIEW, AP/PA ONLY EXAM: CHEST 1 VIEW, AP/PA ONLY. INDICATION: Weakness. Bradycardia. COMPARISON: 11/10/2020. FINDINGS: Normal heart size and central pulmonary vascularity. Mild atelectasis or infiltrate in the medial right lung base. Calcified granuloma in the left lung base. No pleural effusion or pneumothorax. No acute osseous findings. IMPRESSION: Mild atelectasis or infiltrate in the medial right lung base. Dictated on workstation # [id number] Dict: 11/30/2159 Trans: 11/30/21 0901 [id number] Interpreted by: ELIZABETH AQUINO MD Electronically signed by: Critical Care Note Critical Care Start Time: 08:20 Stop Time: 09:00 Total Time (minutes) 30 minutes critical care time in the evaluation and management of this patient with symptomatic bradycardia. Time includes initial evaluation, assessment of multiple EKGs, review and interpretation of laboratory studies. Review and interpretation of medical record. Discussion with mine engineer as well as admitting provider and also discussion with family. Departure Communication (Admissions) Time/Spoke to Admitting Phy: 09:[address] Lui - will put in que'd orders Time/Spoke to Consulting Phy: 09:[address] Sherman - Step down/ NPO Impression Primary Impression: Symptomatic bradycardia Disposition: ADMITTED INPATIENT Condition: Stable Admissions Decision to Admit Reason: Admit from ER (General) Decision to Admit/Date: November 30, 2021 Time/Decision to Admit Time: 09:23 Departure-Patient Inst. Referrals: MACIEJ EASTMAN DO (PCP) Primary Care Physician [facility]RADHA (Family) Primary Care Physician RONALDO FARRIS MD November 30, 2021 08:49
[2021-11-30 09:01] LABS: BASOPHILS % (AUTO) 1 % (0-10); EOSINOPHILS # (AUTO) 0.2 10^3/uL (0.0-0.3); EOSINOPHILS % (AUTO) 3 % (0-10); HEMATOCRIT 38 % (35-52); HEMOGLOBIN 12.4 g/dL (11.5-16.0); LYMPHOCYTES # (AUTO) 1.9 10^3/uL (1.0-4.0); LYMPHOCYTES % (AUTO) 31 % (12-44); MEAN CORPUSCULAR HEMOGLOBIN 31 pg (25-34); MEAN CORPUSCULAR HGB CONC 33 g/dL (32-36); MEAN CORPUSCULAR VOLUME 95 fL (80-99); MEAN PLATELET VOLUME 11.5 fL (9.0-12.2); MONOCYTES # (AUTO) 0.7 10^3/uL (0.0-1.0); MONOCYTES % (AUTO) 10 % (0-12); NEUTROPHILS # (AUTO) 3.5 10^3/uL (1.8-7.8); NEUTROPHILS % (AUTO) 55 % (42-75); PLATELET COUNT 167 10^3/uL (130-400); WHITE BLOOD COUNT 6.3 10^3/uL (4.3-11.0)
--- NOTE | 2021-11-30 09:02 | Diagnostic Imaging Report ---
EXAM: CHEST 1 VIEW, AP/PA ONLY. INDICATION: Weakness. Bradycardia. COMPARISON: 11/10/2020. FINDINGS: Normal heart size and central pulmonary vascularity. Mild atelectasis or infiltrate in the medial right lung base. Calcified granuloma in the left lung base. No pleural effusion or pneumothorax. No acute osseous findings. IMPRESSION: Mild atelectasis or infiltrate in the medial right lung base. Dictated by: Dictated on workstation # [id number]
[2021-11-30 09:06] LABS: CALCIUM 9.3 MG/DL (8.5-10.1); CREATININE SERUM 0.88 MG/DL (0.60-1.30); POTASSIUM 4.2 MMOL/L (3.6-5.0)
--- NOTE | 2021-11-30 09:17 | Cardiology History & Physical ---
HPI-Cardiology Cardiology H&P Date of Admission 11-30-2021 Primary Care Physician Edson Winn DO Attending Physician Consulting Physician CAU-Noqeii-Vnyzgm Hx Patient Social History 2nd Hand Smoke Exposure: No Have you traveled recently?: No Alcohol Use?: No Pt feels they are or have been: No Immunizations Up To Date Date of Pneumonia Vaccine: Feb 17, 2010 Date of Influenza Vaccine: Apr 29, 2019 Past Medical History PMH As described under Assessment. Allergies and Home Medications Allergies Coded Allergies: No Known Drug Allergies (Unverified , 01/23/18) Patient Home Medication List Acetaminophen (Acetaminophen) 500 Mg Tablet, 1,000 MG PO Q6H PRN for PAIN-MILD (1-4), (Reported) Entered as Reported by: LALITA SERRATO on 01/23/18 1401 Allopurinol (Allopurinol) 300 Mg Tablet, 300 MG PO DAILY, (Reported) Entered as Reported by: LALITA SERRATO on 01/23/18 1401 Alprazolam (Xanax) 0.25 Mg Tablet, 0.25 MG PO Q8H PRN for ANXIETY Prescribed by: MAX ABERNATHY on 11/10/20 1715 Amlodipine Besylate (Amlodipine Besylate) 10 Mg Tablet, 10 MG PO DAILY, (Reported) Entered as Reported by: LALITA SERRATO on 01/23/18 1401 Aspirin (Aspirin) 81 Mg Tab.chew, 81 MG PO DAILY, (Reported) Entered as Reported by: LALITA SERRATO on 01/23/18 1401 Atorvastatin Calcium (Atorvastatin Calcium) 10 Mg Tablet, 10 MG PO HS, (Reported) Entered as Reported by: LALITA SERRATO on 01/23/18 1401 Carbidopa/Levodopa (Sinemet 25-100 mg Tablet) 1 Each Tablet, 1 EACH PO DAILY, (Reported) Entered as Reported by: CHAD VELAZQUEZ on 07/17/19 1316 Carvedilol (Carvedilol) 3.125 Mg Tablet, 3.125 MG PO BID, (Reported) Entered as Reported by: LALITA SERRATO on 01/23/18 1401 Cyanocobalamin (Vitamin B-12) (B-12 Compliance) 1,000 Mcg/1 Ml Kit, 1,000 MCG IJ monthly, (Reported) Entered as Reported by: LALITA SERRATO on 01/23/18 1404 Docusate Sodium (Colace) 100 Mg Capsule, 100 MG PO DAILY PRN for CONSTIPATION- 1ST LINE, (Reported) Entered as Reported by: LALITA SERRATO on 01/23/18 1403 Duloxetine HCl (Duloxetine HCl) 60 Mg Capsule.dr, 60 MG PO DAILY, (Reported) Entered as Reported by: LALITA SERRATO on 01/23/18 1401 Furosemide (Furosemide) 80 Mg Tablet, 80 MG PO DAILY, (Reported) Entered as Reported by: LALITA SERRATO on 01/23/18 1401 Hydrocodone Bit/Acetaminophen (Lortab 7.5 Mg Tablet) 1 Ea Tablet, 1 EACH PO Q4H PRN for PAIN-MODERATE Prescribed by: ROSEMARY RIVERA on 07/17/19 1236 Losartan Potassium (Cozaar) 100 Mg Tablet, 100 MG PO DAILY, (Reported) Entered as Reported by: LALITA SERRATO on 07/14/19 1037 Pantoprazole Sodium (Protonix) 40 Mg Tablet.dr, 40 MG PO DAILY, (Reported) Entered as Reported by: LALITA SERRATO on 01/23/18 1403 Potassium Chloride (Potassium Chloride) 20 Meq Tablet.er, 20 MEQ PO DAILY, (Reported) Entered as Reported by: LALITA SERRATO on 01/23/18 1401 Terazosin HCl (Terazosin HCl) 5 Mg Capsule, 5 MG PO DAILY, (Reported) Entered as Reported by: LALITA SERRATO on 01/23/18 1401 Physical Exam-Cardiology Physical Exam Vital Signs/I&O 11/30/21 11/30/21 11/30/21 11/30/21 08:53 10:39 11:00 11:03 Temp 35.2 Pulse 39 41 Resp 16 18 B/P (MAP) 201/80 (120) 170/112 195/76 (115) Pulse Ox 93 93 O2 Delivery Room Air 11/30/21 11/30/21 11/30/21 11/30/21 11:06 11:15 11:30 11:54 Temp 35.2 Pulse 36 32 37 37 Resp 16 12 B/P (MAP) 207/71 (116) Pulse Ox 94 93 93 11/30/21 12:01 Temp 36.5 Pulse 35 Resp 17 B/P (MAP) 195/76 (115) Pulse Ox 93 O2 Delivery Room Air Capillary Refill : Less Than 3 Seconds Data Review Labs Laboratory Tests 11/30/21 08:45: White Blood Count 6.3, Red Blood Count 4.01, Hemoglobin 12.4, Hematocrit 38, Ruth n Corpuscular Volume 95, Mean Corpuscular Hemoglobin 31, Mean Corpuscular Hemoglobin Concent 33, Red Cell Distribution Width 13.6, Platelet Count 167, Mean Platelet Volume 11.5, Immature Granulocyte % (Auto) 1, Neutrophils (%) (Auto) 55, Lymphocytes (%) (Auto) 31, Monocytes (%) (Auto) 10, Eosinophils (%) (Auto) 3, Basophils (%) (Auto) 1, Neutrophils # (Auto) 3.5, Lymphocytes # (Auto) 1.9, Monocytes # (Auto) 0.7, Eosinophils # (Auto) 0.2, Basophils # (Auto) 0.0, Immature Granulocyte # (Auto) 0.1, Prothrombin Time 13.3, INR Comment 1.0, Activated Partial Thromboplast Time 31, Sodium Level 142, Potassium Level 4.2, Chloride Level 105, Carbon Dioxide Level 19L, Anion Gap 18H, Blood Urea Nitrogen 35H, Creatinine 0.88, Estimat Glomerular Filtration Rate 64, BUN/Creatinine Ratio 40, Glucose Level 165H, Calcium Level 9.3 11/30/21 08:49: Thyroid Stimulating Hormone (TSH) 3.47 Radiology NAME: DAISHA [facility] REC#: [id number] PT STATUS: REG ER : 1935 PHYSICIAN: RONALDO FARRIS MD ADMIT DATE: 11/30/21/ER Draft Date of Exam:11/30/21 CHEST 1 VIEW, AP/PA ONLY EXAM: CHEST 1 VIEW, AP/PA ONLY. INDICATION: Weakness. Bradycardia. COMPARISON: 11/10/2020. FINDINGS: Normal heart size and central pulmonary vascularity. Mild atelectasis or infiltrate in the medial right lung base. Calcified granuloma in the left lung base. No pleural effusion or pneumothorax. No acute osseous findings. IMPRESSION: Mild atelectasis or infiltrate in the medial right lung base. Dictated on workstation # [id number] Dict: 11/30/21 0859 Trans: 11/30/21 0901 [id number] Interpreted by: ELIZABETH AQUINO MD Electronically signed by: A/P-Cardiology Assessment/Admission Diagnosis CAD - Mild coronary artery disease per cardiac catheterization of September 2011. Normal right heart pressures and normal global left ventricular systolic function with an ejection fraction of 55% per cardiac catheterization of September 2011. - Echocardiogram from June 15, 2017 showed LVEF 55-60%; mild aortic, mitral and tricuspid regurg; PASP of 35-40 mmHg 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 - No evidence of significant renal artery stenosis on CT angiography of June 2005. Hyperlipidemia - being treated with atorvastatin which is followed by Dr. Hurst Impaired fasting glucose - managed by pcp Fibromyalgia and chronic backache and degenerative joint disease and fatigue. Ortho - Status post laparoscopic surgery on the left knee. - History of hip replacement surgery. - S/P left knee replacement in Mar 2019 Gastroesophageal reflux. - managed by PCP Abnormal ECG - Chronic early repolarization on surface electrocardiography. - ECG on 12/26/17: NSR with isolated PVCs, baseline artifact - ECG of 11-30-21 AV block Carotid dz - Mild carotid arterial disease on ultrasonography of 11-18-20 Sleep apnea - for which she is on CPAP tx Clinical Quality Measures AMI/AHF: ASA po Prior to arrival: DUTCH Solo November 30, 2021 09:17
[2021-11-30 09:19] LABS: PROTHROMBIN TIME PATIENT 13.3 SEC (12.2-14.7)
[2021-11-30] MEDS ORDERED: BISACODYL 10 MG SUPP (DULCOLAX) PR PRN (11:00)
[2021-11-30] MEDS ORDERED: polyethylene glycoL POWDER 17 GM (MIRALAX) PACK PO PRN (11:00)
[2021-11-30] MEDS ORDERED: diphenhydrAMINE 25 MG TAB (BENADRYL) PO PRN (11:00)
[2021-11-30] MEDS ORDERED: ACETAMINOPHEN 325 MG TABLET PO PRN (11:00)
[2021-11-30] MEDS ORDERED: ANTACID SUSP 30 ML UDC (MYLANTA) PO PRN (11:00)
[2021-11-30] MEDS ORDERED: morphine INJ 4 MG/ML 1 ML (VIAL/SYRINGE) IV PRN (11:00)
[2021-11-30] MEDS ORDERED: ONDANSETRON 4 MG (ZOFRAN) ORAL DISSOLVE TAB PO PRN (11:00)
[2021-11-30] MEDS ORDERED: LACTULOSE SYRUP 10GM/15ML (ENULOSE) 30ML UDC PO PRN (11:00)
[2021-11-30] MEDS ORDERED: MILK OF MAGNESIA 400 MG/5 ML 30 ML UDC PO PRN (11:00)
[2021-11-30] MEDS ORDERED: ENOXAPARIN 40 MG/0.4 ML (LOVENOX) SYR SC SCH (11:00)
[2021-11-30] MEDS ORDERED: ONDANSETRON 4 MG/2 ML (SDV) Z0FRAN IV PRN (11:00)
[2021-11-30] MEDS ORDERED: CALCIUM CARBONATE 500 MG (TUMS) TAB.CHEW PO PRN (11:00)
[2021-11-30] MEDS ORDERED: MELATONIN 3 MG TABLET PO PRN (11:00)
[2021-11-30] MEDS ORDERED: diphenhydrAMINE 50 MG/ML INJ (BENADRYL) IVP PRN (11:00)
--- NOTE | 2021-11-30 11:00 | Consultation - Hospitalist ---
HPI History of Present Illness: HPI/Chief Complaint CC: Bradycardia HPI: This is a [facility] pt who presented with severe weakness and syncope. She was found to be significantly bradycardic. Dr. Sherman who has taken care of her for [address] a pacemaker. She is adamant that she is a DNR. We will continue to support her in that. Pt and daughter updated on the plan. Labs reviewed and TSH added but no results at this point. Source: patient, family, RN/MD, old records Exam Limitations: no limitations Date Seen 11/30/21 Attending Physician Koki Lui DO PCP Edson Winn DO Referring Physician Date of Admission November 30, 2021 at 09:24 Home Medications & Allergies Home Medications Reviewed patient Home Medication Reconciliation performed by pharmacy medication reconciliations gate technician and/or nursing. Patients Allergies have been reviewed. Allergies Allergies Coded Allergies No Known Drug Allergies (Unverified01/23/18) Past Ratlxay-Eirhic-Ejxlfq Hx Patient Social History Marrital Status: Employed/Student: retired Tobacco Use?: No Smoking Status: Never a Smoker Substance use?: No Alcohol Use?: No Pt feels they are or have been: No Immunizations Up To Date Date of Influenza Vaccine: Apr 29, 2019 First/Initial COVID19 Vaccinat: YES Second COVID19 Vaccination Demarcus: YES Date of Pneumonia Vaccine: Feb 17, 2010 Seasonal Allergies Seasonal Allergies: No Current Status Primary Language: Australian Preferred Spoken Language: Australian Past Medical History Surgeries: Appendectomy, Hysterectomy Sleep Apnea Currently Using CPAP: Yes (AT HOME AT NIGHT) High Cholesterol, 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 Sexually Transmitted Disease: No Gastroesophageal Reflux, Hiatal Hernia, Ulcer Osteoporosis, Arthritis, Fibromyalgia Depression Blood Disorders: No Review of Systems Constitutional: see HPI, dizziness, malaise, weakness EENTM: no symptoms reported Respiratory: no symptoms reported Cardiovascular: no symptoms reported Gastrointestinal: no symptoms reported Genitourinary: no symptoms reported Musculoskeletal: no symptoms reported Skin: no symptoms reported Psychiatric/Neurological: No Symptoms Reported All Other Systems Reviewed Negative Unless Noted: Yes Physical Exam Physical Exam Vital Signs Vital Signs - First Documented 11/30/21 11/30/21 12/01/21 08:53 11:03 03:38 Temp 35.2 Pulse 39 Resp 16 B/P (MAP) 201/80 (120) Pulse Ox 93 O2 Delivery Room Air O2 Flow Rate 60.00 Capillary Refill : Less Than 3 Seconds Height, Weight, BMI Height: 5'6.00" Weight: 240lbs. 0.0oz. 108.176672rx; 39.00 BMI Method: General Appearance: No Apparent Distress, WD/WN, Chronically ill Eyes: Bilateral Eye Normal Inspection, Bilateral Eye PERRL HEENT: PERRL/EOMI Neck: Normal Inspection Respiratory: Lungs Clear, Normal Breath Sounds, No Accessory Muscle Use, No Respiratory Distress Cardiovascular: Normal Peripheral Pulses, Bradycardia (upper 30's low 40's) Gastrointestinal: Non Tender, Soft Back: Normal Inspection, No CVA Tenderness, No Vertebral Tenderness Extremity: Normal Inspection, Normal Range of Motion, Pedal Edema (1+ bilate ral) Neurologic/Psychiatric: Alert, Oriented x3, No Motor/Sensory Deficits, Normal Mood/Affect, city planner II-XII Norm as Tested Skin: Normal Color, Warm/Dry Lymphatic: No Adenopathy Results Results/Procedures Labs Laboratory Tests 11/30/21 08:45 12/01/21 04:58 Patient resulted labs reviewed. Assessment/Plan Assessment and Plan Assess & Plan/Chief Complaint Assessment: Symptomatic bradycardia 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 Hyperlipidemia MOUNA Hypoxia Fibromyalgia Arthritis Plan: Dr. Sherman consult Pacemaker? Diagnosis/Problems Diagnosis/Problems (1) Symptomatic bradycardia Status: Acute Clinical Quality Measures AMI/AHF: ASA po Prior to arrival: KOKI Dyson DO November 30, 2021 10:59
[2021-11-30] MEDS ORDERED: doxAzosin 4 MG (CARDURA) TAB PO NR (12:00)
[2021-11-30] MEDS ORDERED: RT-ALBUTEROL SULF 2.5 MG/3 ML PRE-MIX VIAL INH PRN (12:15)
--- NOTE | 2021-11-30 12:21 | Consultation-Cardiology ---
HPI-Cardiology Cardiology Consultation: Date of Consultation 11/30/21 Date of Admission Attending Physician Koki Lui DO Admitting Physician Edson Winn DO Consulting Physician DUTCH SUN Review of Systems-Cardiology All Other Systems Reviewed Negative Unless Noted: Yes DTJ-Bqovxa-Rrvgeb Hx Patient Social History Smoking Status: Never a Smoker 2nd Hand Smoke Exposure: No Have you traveled recently?: No Alcohol Use?: No Pt feels they are or have been: No Immunizations Up To Date Date of Pneumonia Vaccine: Feb 17, 2010 Date of Influenza Vaccine: Apr 29, 2019 Past Medical History PMH As described under Assessment. Allergies and Home Medications Allergies Coded Allergies: No Known Drug Allergies (Unverified , 01/23/18) Patient Home Medication List Acetaminophen (Acetaminophen) 500 Mg Tablet, 1,000 MG PO Q6H PRN for PAIN-MILD (1-4), (Reported) Entered as Reported by: LALITA SERRATO on 01/23/18 1401 Allopurinol (Allopurinol) 300 Mg Tablet, 300 MG PO DAILY, (Reported) Entered as Reported by: LALITA SERRATO on 01/23/18 1401 Alprazolam (Xanax) 0.25 Mg Tablet, 0.25 MG PO Q8H PRN for ANXIETY Prescribed by: MAX ABERNATHY on 11/10/20 1715 Amlodipine Besylate (Amlodipine Besylate) 10 Mg Tablet, 10 MG PO DAILY, (Reported) Entered as Reported by: LALITA SERRATO on 01/23/18 1401 Aspirin (Aspirin) 81 Mg Tab.chew, 81 MG PO DAILY, (Reported) Entered as Reported by: LALITA SERRATO on 01/23/18 1401 Atorvastatin Calcium (Atorvastatin Calcium) 10 Mg Tablet, 10 MG PO HS, (Reported) Entered as Reported by: LALITA SERRATO on 01/23/18 1401 Carbidopa/Levodopa (Sinemet 25-100 mg Tablet) 1 Each Tablet, 1 EACH PO DAILY, (Reported) Entered as Reported by: CHAD VELAZQUEZ on 07/17/19 1316 Carvedilol (Carvedilol) 3.125 Mg Tablet, 3.125 MG PO BID, (Reported) Entered as Reported by: LALITA SERRATO on 01/23/18 1401 Cyanocobalamin (Vitamin B-12) (B-12 Compliance) 1,000 Mcg/1 Ml Kit, 1,000 MCG IJ monthly, (Reported) Entered as Reported by: LALITA SERRATO on 01/23/18 1404 Docusate Sodium (Colace) 100 Mg Capsule, 100 MG PO DAILY PRN for CONSTIPATION- 1ST LINE, (Reported) Entered as Reported by: LALITA SERRATO on 01/23/18 1403 Duloxetine HCl (Duloxetine HCl) 60 Mg Capsule.dr, 60 MG PO DAILY, (Reported) Entered as Reported by: LALITA SERRATO on 01/23/18 1401 Furosemide (Furosemide) 80 Mg Tablet, 80 MG PO DAILY, (Reported) Entered as Reported by: LALITA SERRATO on 01/23/18 1401 Hydrocodone Bit/Acetaminophen (Lortab 7.5 Mg Tablet) 1 Ea Tablet, 1 EACH PO Q4H PRN for PAIN-MODERATE Prescribed by: ROSEMARY RIVERA on 07/17/19 1236 Losartan Potassium (Cozaar) 100 Mg Tablet, 100 MG PO DAILY, (Reported) Entered as Reported by: LALITA SERRATO on 07/14/19 1037 Pantoprazole Sodium (Protonix) 40 Mg Tablet.dr, 40 MG PO DAILY, (Reported) Entered as Reported by: LALITA SERRATO on 01/23/18 1403 Potassium Chloride (Potassium Chloride) 20 Meq Tablet.er, 20 MEQ PO DAILY, (Reported) Entered as Reported by: LALITA SERRATO on 01/23/18 1401 Terazosin HCl (Terazosin HCl) 5 Mg Capsule, 5 MG PO DAILY, (Reported) Entered as Reported by: LALITA SERRATO on 01/23/18 1401 Physical Exam-Cardiology Physical Exam Vital Signs/I&O 11/30/21 11/30/21 11/30/21 11/30/21 08:53 10:39 11:00 11:03 Temp 35.2 Pulse 39 41 Resp 16 18 B/P (MAP) 201/80 (120) 170/112 195/76 (115) Pulse Ox 93 93 O2 Delivery Room Air 11/30/21 11/30/21 11/30/21 11/30/21 11:06 11:15 11:30 11:54 Temp 35.2 Pulse 36 32 37 37 Resp 16 12 B/P (MAP) 207/71 (116) Pulse Ox 94 93 93 11/30/21 12:01 Temp 36.5 Pulse 35 Resp 17 B/P (MAP) 195/76 (115) Pulse Ox 93 O2 Delivery Room Air Capillary Refill : Less Than 3 Seconds Data Review Labs Laboratory Tests 11/30/21 08:45: White Blood Count 6.3, Red Blood Count 4.01, Hemoglobin 12.4, Hematocrit 38, Mean Corpuscular Volume 95, Mean Corpuscular Hemoglobin 31, Mean Corpuscular Hemoglobin Concent 33, Red Cell Distribution Width 13.6, Platelet Count 167, Mean Platelet Volume 11.5, Immature Granulocyte % (Auto) 1, Neutrophils (%) (Auto) 55, Lymphocytes (%) (Auto) 31, Monocytes (%) (Auto) 10, Eosinophils (%) (Auto) 3, Basophils (%) (Auto) 1, Neutrophils # (Auto) 3.5, Lymphocytes # (Auto) 1.9, Monocytes # (Auto) 0.7, Eosinophils # (Auto) 0.2, Basophils # (Auto) 0.0, Immature Granulocyte # (Auto) 0.1, Prothrombin Time 13.3, INR Comment 1.0, Activated Partial Thromboplast Time 31, Sodium Level 142, Potassium Level 4.2, Chloride Level 105, Carbon Dioxide Level 19L, Anion Gap 18H, Blood Urea Nitrogen 35H, Creatinine 0.88, Estimat Glomerular Filtration Rate 64, BUN/Creatinine Ratio 40, Glucose Level 165H, Calcium Level 9.3 11/30/21 08:49: Thyroid Stimulating Hormone (TSH) 3.47 Radiology NAME: [facility] REC#: [id number] PT STATUS: REG ER : 1935 PHYSICIAN: RONALDO FARRIS MD ADMIT DATE: 11/30/21/ER Draft Date of Exam:11/30/21 CHEST 1 VIEW, AP/PA ONLY EXAM: CHEST 1 VIEW, AP/PA ONLY. INDICATION: Weakness. Bradycardia. COMPARISON: 11/10/2020. FINDINGS: Normal heart size and central pulmonary vascularity. Mild atelectasis or infiltrate in the medial right lung base. Calcified granuloma in the left lung base. No pleural effusion or pneumothorax. No acute osseous findings. IMPRESSION: Mild atelectasis or infiltrate in the medial right lung base. Dictated on workstation # [id number] Dict: 11/30/21 0859 Trans: 11/30/21 0901 [id number] Interpreted by: ELIZABETH AQUINO MD Electronically signed by: A/P-Cardiology Assessment/Admission Diagnosis CAD - Mild coronary artery disease per cardiac catheterization of September 2011. Normal right heart pressures and normal global left ventricular systolic function with an ejection fraction of 55% per cardiac catheterization of September 2011. - Echocardiogram from June 15, 2017 showed LVEF 55-60%; mild aortic, mitral and tricuspid regurg; PASP of 35-40 mmHg 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 - No evidence of significant renal artery stenosis on CT angiography of June 2005. Hyperlipidemia - being treated with atorvastatin which is followed by Dr. Hurst Impaired fasting glucose - managed by pcp Fibromyalgia and chronic backache and degenerative joint disease and fatigue. Ortho - Status post laparoscopic surgery on the left knee. - History of hip replacement surgery. - S/P left knee replacement in Mar 2019 Gastroesophageal reflux. - managed by PCP Abnormal ECG - Chronic early repolarization on surface electrocardiography. - ECG on 12/26/17: NSR with isolated PVCs, baseline artifact Carotid dz - Mild carotid arterial disease on ultrasonography of 11-18-20 Sleep apnea - for which she is on CPAP tx Clinical Quality Measures AMI/AHF: ASA po Prior to arrival: DUTCH Solo November 30, 2021 12:21
--- NOTE | 2021-11-30 15:34 | Consultation-Cardiology ---
HPI-Cardiology Cardiology Consultation: Date of Consultation 11/30/21 Time Seen by a Provider: 12:45 Date of Admission Attending Physician Koki Lui DO Admitting Physician Edson Winn DO Consulting Physician ROMAN TORRES MD, MA, FACP, FACC, [facility] HPI: Chief Complaint: Fatique, shortness of breath 86 yo woman with progressive shortness of breath and weakness and some instances of near-syncope who has been found to have high-grade AV block in the ER today. PCP had not bradycardia on office visits and had been reducing Coreg. It was discontinued completely yesterday. Last dose of carvedilol was well over 24 hours ago. Chronic, intermittent ankle swelling Review of Systems-Cardiology Review of Systems Constitutional: lightheadedness, malaise, tiredness Eyes: No vision change Ears/Nose/Throat: No ear discharge, No nasal drainage, No recent hearing loss Respiratory: As described under HPI Cardiovascular: As described under HPI Gastrointestinal: No diarrhea, No nausea, No vomiting Musculoskeletal: back pain (chronic) Skin: No rash, No ulcerations Psychiatric/Neurological: No seizure, No focal weakness, No syncope Hematologic: No bleeding abnormalities All Other Systems Reviewed Negative Unless Noted: Yes CWM-Znihor-Jmqldw Hx Patient Social History Smoking Status: Never a Smoker 2nd Hand Smoke Exposure: No Have you traveled recently?: No Alcohol Use?: No Pt feels they are or have been: No Immunizations Up To Date Date of Pneumonia Vaccine: Feb 17, 2010 Date of Influenza Vaccine: Apr 29, 2019 Past Medical History PMH As described under Assessment. Family Medical History Family Medical History: Does not report fam h/o early CAD Allergies and Home Medications Allergies Coded Allergies: No Known Drug Allergies (Unverified , 01/23/18) Patient Home Medication List Home Medication List Reviewed: Yes Acetaminophen (Acetaminophen) 500 Mg Tablet, 1,000 MG PO Q6H PRN for PAIN-MILD (1-4), (Reported) Entered as Reported by: LALITA SERRATO on 01/23/18 1401 Allopurinol (Allopurinol) 300 Mg Tablet, 300 MG PO DAILY, (Reported) Entered as Reported by: LALITA SERRATO on 01/23/18 1401 Alprazolam (Xanax) 0.25 Mg Tablet, 0.25 MG PO Q8H PRN for ANXIETY Prescribed by: MAX ABERNATHY on 11/10/20 1715 Amlodipine Besylate (Amlodipine Besylate) 10 Mg Tablet, 10 MG PO DAILY, (Reported) Entered as Reported by: LALITA SERRATO on 01/23/18 140 Aspirin (Aspirin) 81 Mg Tab.chew, 81 MG PO DAILY, (Reported) Entered as Reported by: LALITA SERRATO on 01/23/18 1401 Atorvastatin Calcium (Atorvastatin Calcium) 10 Mg Tablet, 10 MG PO HS, (Reported) Entered as Reported by: LALITA SERRATO on 01/23/18 1401 Carbidopa/Levodopa (Sinemet 25-100 mg Tablet) 1 Each Tablet, 1 EACH PO DAILY, (Reported) Entered as Reported by: CHAD VELAZQUEZ on 07/17/19 1316 Carvedilol (Carvedilol) 3.125 Mg Tablet, 3.125 MG PO BID, (Reported) Entered as Reported by: LALITA SERRATO on 01/23/18 140 Cyanocobalamin (Vitamin B-12) (B-12 Compliance) 1,000 Mcg/1 Ml Kit, 1,000 MCG IJ monthly, (Reported) Entered as Reported by: LALITA SERRATO on 01/23/18 1404 Docusate Sodium (Colace) 100 Mg Capsule, 100 MG PO DAILY PRN for CONSTIPATION- 1ST LINE, (Reported) Entered as Reported by: LALITA SERRATO on 01/23/18 1403 Duloxetine HCl (Duloxetine HCl) 60 Mg Capsule.dr, 60 MG PO DAILY, (Reported) Entered as Reported by: LALITA SERRATO on 01/23/18 1401 Furosemide (Furosemide) 80 Mg Tablet, 80 MG PO DAILY, (Reported) Entered as Reported by: LALITA SERRATO on 01/23/18 1401 Hydrocodone Bit/Acetaminophen (Lortab 7.5 Mg Tablet) 1 Ea Tablet, 1 EACH PO Q4H PRN for PAIN-MODERATE Prescribed by: ROSEMARY RIVERA on 07/17/19 1236 Losartan Potassium (Cozaar) 100 Mg Tablet, 100 MG PO DAILY, (Reported) Entered as Reported by: LALITA SERRATO on 07/14/19 1037 Pantoprazole Sodium (Protonix) 40 Mg Tablet.dr, 40 MG PO DAILY, (Reported) Entered as Reported by: LALITA SERRATO on 01/23/18 1403 Potassium Chloride (Potassium Chloride) 20 Meq Tablet.er, 20 MEQ PO DAILY, (Reported) Entered as Reported by: LALITA SERRATO on 01/23/18 1401 Terazosin HCl (Terazosin HCl) 5 Mg Capsule, 5 MG PO DAILY, (Reported) Entered as Reported by: LALITA SERRATO on 01/23/18 1401 Physical Exam-Cardiology Physical Exam Vital Signs/I&O 11/30/21 11/30/21 11/30/21 11/30/21 08:53 10:39 11:00 11:03 Temp 35.2 Pulse 39 41 Resp 16 18 B/P (MAP) 201/80 (120) 170/112 195/76 (115) Pulse Ox 93 93 O2 Delivery Room Air 11/30/21 11/30/21 11/30/21 11/30/21 11:06 11:15 11:30 11:54 Temp 35.2 Pulse 36 32 37 37 Resp 16 12 B/P (MAP) 207/71 (116) Pulse Ox 94 93 93 11/30/21 11/30/21 11/30/21 12:00 12:01 13:00 Temp 36.5 Pulse 40 35 40 Resp 29 17 B/P (MAP) 145/89 (107) 195/76 (115) Pulse Ox 92 93 O2 Delivery Room Air Room Air Capillary Refill : Less Than 3 Seconds Constitutional: AAO x 3, well-developed, well-nourished HEENT: EOMI, hearing is well preserved; No xanthelasmas are seen Neck: carotid pulses are 2 + bilaterally, with good upstrokes Respiratory: No accessory muscle use; other (good, bilat air entry) Cardiovascular: irregularly irregular, S1 and S2, systolic murmur (soft TAYE at card base) Gastrointestinal: No tender; soft; No guarding, No rebound; audible bowel sounds Extremities: No clubbing, No cyanosis Neurologic/Psychiatric: oriented x 3, other (moves all limbs equally) Skin: No rash on exposed areas, No ulcerations on exposed areas Data Review Labs Laboratory Tests 11/30/21 08:45: White Blood Count 6.3, Red Blood Count 4.01, Hemoglobin 12.4, Hematocrit 38, Mean Corpuscular Volume 95, Mean Corpuscular Hemoglobin 31, Mean Corpuscular Hemoglobin Concent 33, Red Cell Distribution Width 13.6, Platelet Count 167, Mean Platelet Volume 11.5, Immature Granulocyte % (Auto) 1, Neutrophils (%) (Auto) 55, Lymphocytes (%) (Auto) 31, Monocytes (%) (Auto) 10, Eosinophils (%) (Auto) 3, Basophils (%) (Auto) 1, Neutrophils # (Auto) 3.5, Lymphocytes # (Auto) 1.9, Monocytes # (Auto) 0.7, Eosinophils # (Auto) 0.2, Basophils # (Auto) 0.0, Immature Granulocyte # (Auto) 0.1, Prothrombin Time 13.3, INR Comment 1.0, Activated Partial Thromboplast Time 31, Sodium Level 142, Potassium Level 4.2, Chloride Level 105, Carbon Dioxide Level 19L, Anion Gap 18H, Blood Urea Nitrogen 35H, Creatinine 0.88, Estimat Glomerular Filtration Rate 64, BUN/Creatinine Ratio 40, Glucose Level 165H, Calcium Level 9.3 11/30/21 08:49: Thyroid Stimulating Hormone (TSH) 3.47 Laboratory Tests 11/30/21 08:45 A/P-Cardiology Assessment/Admission Diagnosis High-grade AV block, symptomatic CAD - Mild coronary artery disease per cardiac catheterization of September 2011. Normal right heart pressures and normal global left ventricular systolic function with an ejection fraction of 55% per cardiac catheterization of September 2011. - Echocardiogram from June 15, 2017 showed LVEF 55-60%; mild aortic, mitral and tricuspid regurg; PASP of 35-40 mmHg 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 - No evidence of significant renal artery stenosis on CT angiography of June 2005. Hyperlipidemia - being treated with atorvastatin which is followed by Dr. Hurst Impaired fasting glucose - managed by pcp Fibromyalgia and chronic backache and degenerative joint disease and fatigue. Ortho - Status post laparoscopic surgery on the left knee. - History of hip replacement surgery. - S/P left knee replacement in Mar 2019 Gastroesophageal reflux. - managed by PCP Abnormal ECG - Chronic early repolarization on surface electrocardiography. - ECG on 12/26/17: NSR with isolated PVCs, baseline artifact Carotid dz - Mild carotid arterial disease on ultrasonography of 11-18-20 Sleep apnea - for which she is on CPAP tx Discussion and Recomendations * She has symptomatic bradycardia and advanced AV block in the absence of any rate-lowering agents. Pacemaker implantation is advised * I discussed in detail the rationale, procedure, risks, benefits, potential complications, and alternatives of perm pacemaker implantation. She understands and wishes to proceed Clinical Quality Measures AMI/AHF: ASA po Prior to arrival: ROMAN Mandujano MD FACP [facility] November 30, 2021 15:34
[2021-11-30] MEDS ORDERED: ALPR0.254 PO (16:07)
[2021-11-30] MEDS ORDERED: PANT40TA52 PO (16:07)
[2021-11-30] MEDS ORDERED: LOSA1TAB26 (16:07)
[2021-11-30] MEDS ORDERED: ACET-2267 PO (16:07)
[2021-11-30] MEDS ORDERED: FAMO20TA5 PO (16:07)
[2021-11-30] MEDS ORDERED: DOXA4TAB2 PO (16:07)
[2021-11-30] MEDS ORDERED: POTA-179 PO (16:07)
[2021-11-30] MEDS ORDERED: ASPI-1238 PO (16:07)
[2021-11-30] MEDS ORDERED: CARB15DR OT (16:07)
[2021-11-30] MEDS ORDERED: LOSA1TAB20 PO (16:07)
[2021-11-30] MEDS ORDERED: LIDOCAINE 1% INJ 20 ML VIAL ONE (16:49)
[2021-11-30] MEDS ORDERED: HEParin (CATH LAB) 1,000 ML IV ONE (16:50)
[2021-11-30] MEDS ORDERED: NS IV 1000 ML 1,000 ML ONE (16:50)
[2021-11-30] MEDS ORDERED: MIDAZOLAM 5 MG/5 ML (VERSED) VIAL ONE ×2 (16:57→17:49)
[2021-11-30] MEDS ORDERED: fentaNYL INJ 100 MCG/2 ML AMP ONE ×2 (16:57→17:49)
[2021-11-30] MEDS ORDERED: ceFAZolin INJECTION 1,000 MG ONE (16:57)
[2021-11-30] MEDS ORDERED: PATIENT MAY USE OWN MEDS, ALL PO SCH (19:15)
[2021-11-30] MEDS ORDERED: NS IV 1000 ML 1,000 ML IV SCH (19:15)
--- NOTE | 2021-11-30 19:49 | Diagnostic Imaging Report ---
EXAMINATION: Chest 2 view. HISTORY: Pacemaker placement. COMPARISON: 11/30/2021. FINDINGS: The lungs are clear without edema or pneumonia. No pleural effusion or pneumothorax. Heart size is mildly enlarged. Left subclavian pacemaker is present with leads projecting over the right atrium and right ventricle. There is a calcified granuloma in the left lung base. IMPRESSION: Clear lungs. Dictated by: Dictated on workstation # [id number]
[2021-11-30] MEDS ORDERED: doxAzosin 4 MG (CARDURA) TAB PO SCH (21:00)
[2021-11-30] MEDS: SENNOSIDES 8.6 MG (SENOKOT) TAB PO SCH (22:23)
[2021-11-30] MEDS: DOCUSATE SODIUM 100 MG (COLACE) CAP PO SCH (22:23)
[2021-11-30] MEDS: ceFAZolin INJECTION 1,000 MG in NS (IVPB) 50 ML IV SCH (22:28)
--- NOTE | 2021-11-30 23:32 | OPERATIVE REPORT ---
DATE OF SERVICE: 11/30/2021 PREOPERATIVE DIAGNOSIS: High-grade atrioventricular block, alternating with complete heart block. POSTOPERATIVE DIAGNOSIS: High-grade atrioventricular block, alternating with complete heart block. PROCEDURE: Dual chamber pacemaker implantation. ESTIMATED BLOOD LOSS: Less than 20 mL. INDICATIONS: The patient is an 86-year-old lady who presented with symptomatic bradycardia and found to have high-grade atrioventricular block, which was alternating with complete heart block. This was despite not being on any rate controlling agents. Dual chamber pacemaker implantation was carried out after having obtained an informed consent. DESCRIPTION OF PROCEDURE: She was brought to the cardiac catheterization laboratory in a fasting state. The left prepectoral area was prepared and draped in the usual sterile fashion. Lidocaine 1% was used for local anesthesia. Modified Seldinger technique was used to advance 2 guidewires into the left subclavian vein and the tips were placed in the right atrium. Sharp and blunt dissection was used to make a pacemaker pocket. Good hemostasis was assured and the pocket was packed with saline gauze. The guidewires were used to advance sheaths and the wires were removed. The sheaths were used to advance leads and the sheaths were removed. Both leads are active fixation leads. The ventricular lead was placed at the right ventricular apex. The atrial lead was placed at the right atrial appendage and actively fixed. The leads were sutured to the prepectoral fascia using sleeves and 0 Ethibond. Good capture and sensing thresholds were obtained. All lead manipulations were carried out under fluoroscopy. The gauze was then removed from the pacemaker pocket and the pocket was thoroughly irrigated with an antibiotic solution. The leads were then attached to a dual chamber pacemaker and the pacemaker was placed in a TYRX pocket and the leads and the pacemaker were placed in the subcutaneous pocket and the pocket was closed in 2 layers using 3-0 Vicryl. The model number of the atrial lead is 5076-45 and the serial number is [id number]. The right ventricular lead is [employer] model 211190 and the serial number is [id number]. The right atrial capture threshold is 1 volt at 0.4 milliseconds, P waves are measured at 3.9 millivolts. Capture threshold for the right ventricle is 0.75 volts at 0.4 milliseconds and the R-waves are measured at 19.8 millivolts. Right atrial pacing impedance is 399 ohms. Ventricular lead impedance is 703 ohms. The pacemaker is in the DDDR mode with a lower rate of 60 beats per minute and an upper tracking and an upper activity rate of 130 beats per minute. The patient tolerated the procedure well. Job ID: [id number] DocumentID: [id number] Dictated Date: 11/30/2021 19:08:16 Tech Writer Date: 11/30/2021 23:31:38 Dictated By: ROMAN TORRES MD, MA, FACP, FACC,
[2021-12-01] VITALS (8 sets, daily range): BP systolic 128–143; BP diastolic 48–68
[2021-12-01 05:21] LABS: BASOPHILS % (AUTO) 1 % (0-10); EOSINOPHILS # (AUTO) 0.1 10^3/uL (0.0-0.3); EOSINOPHILS % (AUTO) 2 % (0-10); HEMATOCRIT 35 % (35-52); HEMOGLOBIN 11.3 g/dL (11.5-16.0); LYMPHOCYTES # (AUTO) 1.5 10^3/uL (1.0-4.0); LYMPHOCYTES % (AUTO) 18 % (12-44); MEAN CORPUSCULAR HEMOGLOBIN 31 pg (25-34); MEAN CORPUSCULAR HGB CONC 32 g/dL (32-36); MEAN CORPUSCULAR VOLUME 96 fL (80-99); MONOCYTES # (AUTO) 0.8 10^3/uL (0.0-1.0); MONOCYTES % (AUTO) 10 % (0-12); NEUTROPHILS # (AUTO) 5.7 10^3/uL (1.8-7.8); NEUTROPHILS % (AUTO) 69 % (42-75); PLATELET COUNT 136 10^3/uL (130-400); WHITE BLOOD COUNT 8.2 10^3/uL (4.3-11.0)
[2021-12-01 05:35] LABS: ALBUMIN 3.6 GM/DL (3.2-4.5); POTASSIUM 3.8 MMOL/L (3.6-5.0)
[2021-12-01 05:37] LABS: CALCIUM 8.9 MG/DL (8.5-10.1)
[2021-12-01 05:38] LABS: TOTAL PROTEIN 5.8 GM/DL (6.4-8.2)
[2021-12-01 05:40] LABS: BILIRUBIN,TOTAL 0.6 MG/DL (0.1-1.0)
[2021-12-01] MEDS: ceFAZolin INJECTION 1,000 MG in NS (IVPB) 50 ML IV SCH (05:40)
[2021-12-01 05:41] LABS: CREATININE SERUM 0.77 MG/DL (0.60-1.30)
[2021-12-01] MEDS ORDERED: ALPRAZolam 0.25 MG (XANAX) TAB PO PRN (06:00)
[2021-12-01] MEDS ORDERED: ARTIFICAL TEARS 0.4 ML UNIT DOSE (REFRESH PLUS) OU PRN (06:15)
[2021-12-01] MEDS ORDERED: FUROSEMIDE 40 MG (LASIX) TAB PO SCH (07:00)
--- NOTE | 2021-12-01 08:37 | Progress Note - Cardiology ---
Cardiology SOAP Progress Note Subjective: Sitting up on the side of the bed C/O discomfort at the device insertion site No c/o dizziness or SOB Objective: I&O/Vital Signs 11/30/21 11/30/21 11/30/21 12/01/21 21:00 22:00 23:00 00:00 Pulse 60 60 60 60 Resp 17 18 18 18 B/P (MAP) 150/69 (96) 121/61 (81) 134/70 (91) 139/64 (89) Pulse Ox 90 95 94 O2 Delivery Room Air Room Air Room Air Room Air 12/01/21 12/01/21 12/01/21 12/01/21 00:25 00:26 01:00 01:00 Temp 36.6 Pulse 60 57 Resp 22 B/P (MAP) 136/59 (84) Pulse Ox 93 O2 Delivery Room Air Room Air 12/01/21 12/01/21 12/01/21 12/01/21 02:00 03:00 03:38 04:00 Temp 40.0 Pulse 60 60 99 49 Resp 21 20 30 17 B/P (MAP) 141/68 (92) 128/48 (74) 132/49 (76) Pulse Ox 95 94 100 93 O2 Delivery Room Air Room Air Ambu Bag Room Air O2 Flow Rate 60.00 12/01/21 12/01/21 12/01/21 12/01/21 04:22 04:30 05:00 06:00 Temp 37.6 Pulse 66 60 Resp 19 21 B/P (MAP) 143/59 (87) 137/61 (86) Pulse Ox 95 91 O2 Delivery Room Air Room Air Room Air 12/01/21 12/01/21 12/01/21 07:32 07:36 08:00 Temp 36.8 Pulse 60 59 Resp 20 B/P (MAP) 142/56 (84) Pulse Ox 90 O2 Delivery Room Air Room Air 12/01/21 00:00 Intake Total 100 ml Balance 100 ml Weight (Pounds): 240 Weight (Ounces): 0.0 Weight (Calculated Kilograms): [phone] Side: left Device Insertion Site: without hematoma Swelling: mild amount of swelling Drainage: No Bruising: mild bruising Constitutional: AAO x 3, well-developed, well-nourished Respiratory: other Cardiovascular: regular rate-rhythm, S1 and S2, systolic murmur Gastrointestional: soft, audible bowel sounds Extremities: No clubbing, No cyanosis Neurologic/Psychiatric: oriented x 3, other Skin: No rash on exposed areas, No ulcerations on exposed areas Results/Procedures: Labs Laboratory Tests 11/30/21 08:45: White Blood Count 6.3, Red Blood Count 4.01, Hemoglobin 12.4, Hematocrit 38, Mean Corpuscular Volume 95, Mean Corpuscular Hemoglobin 31, Mean Corpuscular Hemoglobin Concent 33, Red Cell Distribution Width 13.6, Platelet Count 167, Mean Platelet Volume 11.5, Immature Granulocyte % (Auto) 1, Neutrophils (%) (Auto) 55, Lymphocytes (%) (Auto) 31, Monocytes (%) (Auto) 10, Eosinophils (%) (Auto) 3, Basophils (%) (Auto) 1, Neutrophils # (Auto) 3.5, Lymphocytes # (Auto) 1.9, Monocytes # (Auto) 0.7, Eosinophils # (Auto) 0.2, Basophils # (Auto) 0.0, Immature Granulocyte # (Auto) 0.1, Prothrombin Time 13.3, INR Comment 1.0, Activated Partial Thromboplast Time 31, Sodium Level 142, Potassium Level 4.2, Chloride Level 105, Carbon Dioxide Level 19L, Anion Gap 18H, Blood Urea Nitrogen 35H, Creatinine 0.88, Estimat Glomerular Filtration Rate 64, BUN/Creatinine Ratio 40, Glucose Level 165H, Calcium Level 9.3 11/30/21 08:49: Thyroid Stimulating Hormone (TSH) 3.47 12/01/21 04:58: White Blood Count 8.2, Red Blood Count 3.67L, Hemoglobin 11.3L, Hematocrit 35, Mean Corpuscular Volume 96, Mean Corpuscular Hemoglobin 31, Mean Corpuscular Hemoglobin Concent 32, Red Cell Distribution Width 13.6, Platelet Count 136, Mean Platelet Volume 12.0, Immature Granulocyte % (Auto) 1, Neutrophils (%) (Auto) 69, Lymphocytes (%) (Auto) 18, Monocytes (%) (Auto) 10, Eosinophils (%) (Auto) 2, Basophils (%) (Auto) 1, Neutrophils # (Auto) 5.7, Lymphocytes # (Auto) 1.5, Monocytes # (Auto) 0.8, Eosinophils # (Auto) 0.1, Basophils # (Auto) 0.0, Immature Granulocyte # (Auto) 0.0, Sodium Level 141, Potassium Level 3.8, Chloride Level 104, Carbon Dioxide Level 24, Anion Gap 13, Blood Urea Nitrogen 20H, Creatinine 0.77, Estimat Glomerular Filtration Rate 75, BUN/Creatinine Ratio 26, Glucose Level 127H, Calcium Level 8.9, Corrected Calcium 9.2, Total Bilirubin 0.6, Aspartate Amino Transf (AST/SGOT) 14, Alanine Aminotransferase (ALT/SGPT) 16, Alkaline Phosphatase 90, Total Protein 5.8L, Albumin 3.6 Laboratory Tests 11/30/21 08:45 12/01/21 04:58 A/P: Assessment: High-grade AV block, symptomatic - S/P PPM implant on 11-30-21 CAD - Mild coronary artery disease per cardiac catheterization of September 2011. Normal right heart pressures and normal global left ventricular systolic function with an ejection fraction of 55% per cardiac catheterization of September 2011. - Echocardiogram from June 15, 2017 showed LVEF 55-60%; mild aortic, mitral and tricuspid regurg; PASP of 35-40 mmHg 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 - No evidence of significant renal artery stenosis on CT angiography of June 2005. Hyperlipidemia - being treated with atorvastatin which is followed by Dr. Hurst Impaired fasting glucose - managed by pcp Fibromyalgia and chronic backache and degenerative joint disease and fatigue. Ortho - Status post laparoscopic surgery on the left knee. - History of hip replacement surgery. - S/P left knee replacement in Mar 2019 Gastroesophageal reflux. - managed by PCP Abnormal ECG - Chronic early repolarization on surface electrocardiography. - ECG on 12/26/17: NSR with isolated PVCs, baseline artifact Carotid dz - Mild carotid arterial disease on ultrasonography of 11-18-20 Sleep apnea - for which she is on CPAP tx Plan: * She had symptomatic bradycardia and advanced AV block in the absence of any rate-lowering agents * PPM implant on 11-30-21 * Continue antihypertensive medications including BB since she is protected from bradycardia * Out pt f/u advised * Abx - Ceftin 500mg BID x7 days * Ok to discharge home from cardiac stand point after device check has been done Clinical Quality Measures AMI/AHF: ASA po Prior to arrival: DUTCH Solo December 01, 2021 08:37
[2021-12-01] MEDS ORDERED: CARV12.53 PO (08:40)
[2021-12-01] MEDS ORDERED: CEFU500T63 PO (08:40)
--- NOTE | 2021-12-01 08:41 | Discharge Inst-Cardiology ---
Discharge Inst-Cardiac Discharge Medications New Medications: Cefuroxime Axetil (Cefuroxime) 500 Mg Tablet 500 MG PO BID, #10 TAB Carvedilol (Carvedilol) 12.5 Mg Tablet 12.5 MG PO BID, #180 TAB 3 Refills Continued Medications: Acetaminophen (Tylenol Extra Strength) 500 Mg Tablet 1000 MG PO Q6H PRN for PAIN-MILD (1-4), TAB Allopurinol (Allopurinol) 300 Mg Tablet 300 MG PO HS, TAB ALPRAZolam (ALPRAZolam) 0.25 Mg Tablet 0.25 MG PO Q8H PRN for ANXIETY, TAB Amlodipine Besylate (Amlodipine Besylate) 10 Mg Tablet 10 MG PO HS, TAB Aspirin (Aspirin EC) 81 Mg Tablet.dr 81 MG PO DAILY, TAB Atorvastatin Calcium (Atorvastatin Calcium) 10 Mg Tablet 10 MG PO HS, TAB Carboxymethylcellulose Sodium (Refresh Tears) 0.5 % Drops 1-2 DROPS OT UD PRN for DRY EYES, DROPS Doxazosin Mesylate (Doxazosin Mesylate) 4 Mg Tablet 4 MG PO DAILY, TAB Duloxetine HCl (Duloxetine HCl) 60 Mg Capsule.dr 60 MG PO HS, CAP Famotidine (Famotidine) 20 Mg Tablet 20 MG PO HS, TAB Furosemide (Furosemide) 80 Mg Tablet 80 MG PO DAILY, TAB Losartan/Hydrochlorothiazide (Losartan-Hctz 50-12.5 mg Tab) 50 Mg-12.5 Mg Tablet 2 EACH PO DAILY, TAB Pantoprazole Sodium (Pantoprazole Sodium) 40 Mg Tablet.dr 40 MG PO BID, TAB Potassium Chloride (Potassium Chloride) 20 Meq Tab.er.prt 20 MEQ PO DAILY, TAB New, Converted or Re-Newed RX: Transmitted to Pharmacy Patient Instructions Patient Instructions: Please schedule appointment to come to Dr. Sherman's office for a nurse visit for device site check and dressing change [employer] schedule appointment to see Dr. Sherman in 2 weeks DUTCH MONTOYA December 01, 2021 08:41
[2021-12-01] MEDS ORDERED: doxAzosin 4 MG (CARDURA) TAB PO SCH (09:00)
[2021-12-01] MEDS ORDERED: amLODIPine 10 MG (NORVASC) TAB PO SCH (09:00)
[2021-12-01] MEDS ORDERED: KCL 20 MEQ TAB (K-DUR) PO SCH (09:00)
[2021-12-01] MEDS ORDERED: PANTOPRAZOLE 40 MG (PROTONIX) TAB PO SCH (09:00)
[2021-12-01] MEDS ORDERED: LOSARTAN 100 MG (COZAAR) TABLET PO SCH (09:00)
[2021-12-01] MEDS ORDERED: ASPIRIN E.C. 81 MG (ECOTRIN) TAB PO SCH (09:00)
--- NOTE | 2021-12-01 09:30 | Progress Note - Cardiology ---
Cardiology SOAP Progress Note Subjective: Some soreness at pacemaker site No other chest discomfort No palp or syncope or shortness of breath No focal weakness Gen weakness and malaise at usual baseline She wishes to go home Objective: I&O/Vital Signs 11/30/21 11/30/21 12/01/21 12/01/21 22:00 23:00 00:00 00:25 Temp 36.6 Pulse 60 60 60 Resp 18 18 18 B/P (MAP) 121/61 (81) 134/70 (91) 139/64 (89) Pulse Ox 95 94 O2 Delivery Room Air Room Air Room Air 12/01/21 12/01/21 12/01/21 12/01/21 00:26 01:00 01:00 02:00 Pulse 60 57 60 Resp 22 21 B/P (MAP) 136/59 (84) 141/68 (92) Pulse Ox 93 95 O2 Delivery Room Air Room Air Room Air 12/01/21 12/01/21 12/01/21 12/01/21 03:00 03:38 04:00 04:22 Temp 40.0 Pulse 60 99 49 Resp 20 30 17 B/P (MAP) 128/48 (74) 132/49 (76) Pulse Ox 94 100 93 O2 Delivery Room Air Ambu Bag Room Air Room Air O2 Flow Rate 60.00 12/01/21 12/01/21 12/01/21 12/01/21 04:30 05:00 06:00 07:32 Temp 37.6 Pulse 66 60 60 Resp 19 21 B/P (MAP) 143/59 (87) 137/61 (86) Pulse Ox 95 91 O2 Delivery Room Air Room Air 12/01/21 12/01/21 07:36 08:00 Temp 36.8 Pulse 59 Resp 20 B/P (MAP) 142/56 (84) Pulse Ox 90 O2 Delivery Room Air Room Air 12/01/21 00:00 Intake Total 100 ml Balance 100 ml Weight (Pounds): 240 Weight (Ounces): 0.0 Weight (Calculated Kilograms): [id number] Side: left Device Insertion Site: without hematoma Swelling: mild amount of swelling Drainage: No Bruising: mild bruising Constitutional: AAO x 3, well-developed, well-nourished Respiratory: other Cardiovascular: regular rate-rhythm, S1 and S2, systolic murmur Gastrointestional: soft, audible bowel sounds Extremities: No clubbing, No cyanosis Neurologic/Psychiatric: oriented x 3, other Skin: No rash on exposed areas, No ulcerations on exposed areas Results/Procedures: Labs Laboratory Tests 12/01/21 04:58: White Blood Count 8.2, Red Blood Count 3.67L, Hemoglobin 11.3L, Hematocrit 35, Mean Corpuscular Volume 96, Mean Corpuscular Hemoglobin 31, Mean Corpuscular Hemoglobin Concent 32, Red Cell Distribution Width 13.6, Platelet Count 136, Mean Platelet Volume 12.0, Immature Granulocyte % (Auto) 1, Neutrophils (%) (Auto) 69, Lymphocytes (%) (Auto) 18, Monocytes (%) (Auto) 10, Eosinophils (%) (Auto) 2, Basophils (%) (Auto) 1, Neutrophils # (Auto) 5.7, Lymphocytes # (Auto) 1.5, Monocytes # (Auto) 0.8, Eosinophils # (Auto) 0.1, Basophils # (Auto) 0.0, Immature Granulocyte # (Auto) 0.0, Sodium Level 141, Potassium Level 3.8, Chloride Level 104, Carbon Dioxide Level 24, Anion Gap 13, Blood Urea Nitrogen 20H, Creatinine 0.77, Estimat Glomerular Filtration Rate 75, BUN/Creatinine Ratio 26, Glucose Level 127H, Calcium Level 8.9, Corrected Calcium 9.2, Total Bilirubin 0.6, Aspartate Amino Transf (AST/SGOT) 14, Alanine Aminotransferase (ALT/SGPT) 16, Alkaline Phosphatase 90, Total Protein 5.8L, Albumin 3.6 Laboratory Tests 11/30/21 08:45 12/01/21 04:58 A/P: Assessment: 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 Normal right heart pressures and normal global left ventricular systolic function with an ejection fraction of 55% per cardiac catheterization of September 2011. - Echocardiogram from June 15, 2017 showed LVEF 55-60%; mild aortic, mitral and tricuspid regurg; PASP of 35-40 mmHg 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 - No evidence of significant renal artery stenosis on CT angiography of June 2005. Hyperlipidemia - being treated with atorvastatin which is followed by Dr. Hurst Impaired fasting glucose - managed by pcp Fibromyalgia and chronic backache and degenerative joint disease and fatigue. Ortho - Status post laparoscopic surgery on the left knee. - History of hip replacement surgery. - S/P left knee replacement in Mar 2019 Gastroesophageal reflux. - managed by PCP Abnormal ECG - Chronic early repolarization on surface electrocardiography. - ECG on 12/26/17: NSR with isolated PVCs, baseline artifact Carotid dz - Mild carotid arterial disease on ultrasonography of 11-18-20 Sleep apnea - for which she is on CPAP tx Plan: * I spoke with her and her daughter in detail regarding the procedure and future plan * Continue antihypertensive medications including BB since she is protected from bradycardia * BB to treat SVT * Outpt f/u advised * Abx - Ceftin 500mg BID x7 days * Ok to discharge home from cardiac stand point after device check has been done Clinical Quality Measures AMI/AHF: ASA po Prior to arrival: ROMAN Mandujano MD FACP FAC CCDS December 01, 2021 09:30
[2021-12-01] MEDS: DOCUSATE SODIUM 100 MG (COLACE) CAP PO SCH (09:54)
[2021-12-01] MEDS: SENNOSIDES 8.6 MG (SENOKOT) TAB PO SCH (09:55)
[2021-12-01] MEDS: NS IV 1000 ML 1,000 ML IV SCH (09:55)
--- NOTE | 2021-12-01 10:28 | Discharge Summary ---
Discharge Summary Hospital Course Was the Problem List Reviewed?: Yes Problems/Dx: (1) Symptomatic bradycardia Status: Acute Hospital Course Date of Admission: November 30, 2021 at 09:24 Admission Diagnosis : Family Physician/Provider: Chris/[facility] Date of Discharge: 12/01/21 Discharge Diagnosis: Assessment: Symptomatic bradycardia requiring pacemaker placement 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 Hyperlipidemia MOUNA Hypoxia Fibromyalgia Arthritis Hospital Course: Pt had a brief hospital course and she was found to have symptomatic bradycardia. Dr. Sherman, who has been treating her for 25 years, placed a pacemaker without any concerns or complications. She was deemed stable for discharge home. Labs and Pending Lab Test: Laboratory Tests 12/01/21 04:58: White Blood Count 8.2, Red Blood Count 3.67L, Hemoglobin 11.3L, Hematocrit 35, Mean Corpuscular Volume 96, Mean Corpuscular Hemoglobin 31, Mean Corpuscular Hemoglobin Concent 32, Red Cell Distribution Width 13.6, Platelet Count 136, Mean Platelet Volume 12.0, Immature Granulocyte % (Auto) 1, Neutrophils (%) (Auto) 69, Lymphocytes (%) (Auto) 18, Monocytes (%) (Auto) 10, Eosinophils (%) (Auto) 2, Basophils (%) (Auto) 1, Neutrophils # (Auto) 5.7, Lymphocytes # (Auto) 1.5, Monocytes # (Auto) 0.8, Eosinophils # (Auto) 0.1, Basophils # (Auto) 0.0, Immature Granulocyte # (Auto) 0.0, Sodium Level 141, Potassium Level 3.8, Chlori de Level 104, Carbon Dioxide Level 24, Anion Gap 13, Blood Urea Nitrogen 20H, Creatinine 0.77, Estimat Glomerular Filtration Rate 75, BUN/Creatinine Ratio 26, Glucose Level 127H, Calcium Level 8.9, Corrected Calcium 9.2, Total Bilirubin 0.6, Aspartate Amino Transf (AST/SGOT) 14, Alanine Aminotransferase (ALT/SGPT) 16, Alkaline Phosphatase 90, Total Protein 5.8L, Albumin 3.6 Home Meds Active Cefuroxime (Cefuroxime Axetil) 500 Mg Tablet 500 Mg PO BID Carvedilol 12.5 Mg Tablet 12.5 Mg PO BID Reported Losartan-Hctz 50-12.5 mg Tab (Losartan/Hydrochlorothiazide) 50 Mg-12.5 Mg Tablet 2 Each PO DAILY Tylenol Extra Strength (Acetaminophen) 500 Mg Tablet 1,000 Mg PO Q6H PRN Refresh Tears (Carboxymethylcellulose Sodium) 0.5 % Drops 1-2 Drops OT UD PRN Pantoprazole Sodium 40 Mg Tablet.dr 40 Mg PO BID ALPRAZolam 0.25 Mg Tablet 0.25 Mg PO Q8H PRN Doxazosin Mesylate 4 Mg Tablet 4 Mg PO DAILY Potassium Chloride 20 Meq Tab.er.prt 20 Meq PO DAILY Famotidine 20 Mg Tablet 20 Mg PO HS Aspirin EC (Aspirin) 81 Mg Tablet.dr 81 Mg PO DAILY Allopurinol 300 Mg Tablet 300 Mg PO HS Duloxetine HCl 60 Mg Capsule.dr 60 Mg PO HS Atorvastatin Calcium 10 Mg Tablet 10 Mg PO HS Amlodipine Besylate 10 Mg Tablet 10 Mg PO HS Furosemide 80 Mg Tablet 80 Mg PO DAILY Assessment/Pt Instructions PCP in 1 week Discharge Planning: <30 minutes discharge planning Discharge Instructions Discharge Diet: No Restrictions Activity as Tolerated: Yes Discharge Physical Examination Vital Signs Vital Signs Date Time Temp Pulse Resp B/P (MAP) Pulse Ox O2 Delivery O2 Flow Rate FiO2 12/01/21 08:00 Room Air 12/01/21 07:36 36.8 59 20 142/56 (84) 90 12/01/21 03:38 60.00 General Appearance: No Apparent Distress, WD/WN Respiratory: Lungs Clear, Normal Breath Sounds Cardiovascular: Regular Rate, Rhythm Allergies: Coded Allergies: No Known Drug Allergies (Unverified , 01/23/18) Discharge Summary Date of Admission November 30, 2021 at 09:24 Date of Discharge Discharge Date: December 01, 2021 Discharge Diagnosis Assessment: Symptomatic bradycardia 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 Hyperlipidemia MOUNA Hypoxia Fibromyalgia Arthritis Plan: Dr. Sherman consult Pacemaker? (1) Symptomatic bradycardia Status: Acute Clinical Quality Measures AMI/AHF: ASA po Prior to arrival: IRMA Dyson DO December 01, 2021 10:28
[2021-12-01] MEDS ORDERED: AtorvaSTATin TABLET 10 MG TABLET PO SCH (21:00)
[2021-12-01] MEDS ORDERED: DULoxetine 30 MG (CYMBALTA) CAP PO SCH (21:00)
[2021-12-01] MEDS ORDERED: ALLOPURINOL 300 MG (ZYLOPRIM) TAB PO SCH (21:00)
[2021-12-01] MEDS ORDERED: FAMOTIDINE 20 MG (PEPCID) TABLET PO SCH (21:00)
== END 2021-12-01 11:49 | disposition home or self-care (01) | DRG 244 ==
LOC: EDUNIT# 08:13 → ER 08:14 → CSD 09:24
PROVIDERS: ADMIT Internal Medicine; ATTEND Internal Medicine
PROC: 0JH606Z Insertion of Pacemaker, Dual Chamber into Chest Subcutaneous Tissue and Fascia, Open Approach (ICD-10-PCS; principal; 2021-11-30)
PROC: 02HK3JZ Insertion of Pacemaker Lead into Right Ventricle, Percutaneous Approach (ICD-10-PCS; 2021-11-30)
PROC: 02H63JZ Insertion of Pacemaker Lead into Right Atrium, Percutaneous Approach (ICD-10-PCS; 2021-11-30)
DX: I44.2 Atrioventricular block, complete (principal); E78.00 Pure hypercholesterolemia, unspecified; I10 Essential (primary) hypertension; K21.9 Gastro-esophageal reflux disease without esophagitis; M81.0 Age-related osteoporosis without current pathological fracture; M19.90 Unspecified osteoarthritis, unspecified site; M79.7 Fibromyalgia; F32.A Depression, unspecified; R09.02 Hypoxemia; G47.33 Obstructive sleep apnea (adult) (pediatric); I44.30 Unspecified atrioventricular block; I25.10 Atherosclerotic heart disease of native coronary artery without angina pectoris; G89.29 Other chronic pain; M54.9 Dorsalgia, unspecified; Z96.649 Presence of unspecified artificial hip joint; Z96.652 Presence of left artificial knee joint; I77.9 Disorder of arteries and arterioles, unspecified; R73.01 Impaired fasting glucose; Z79.82 Long term (current) use of aspirin; Z79.899 Other long term (current) drug therapy
CPT/HCPCS: 33208; 36415; 71045; 71046; 80048; 80053; 84443; 85025; 85610; 85730; 93005; 94760

== ENCOUNTER 2021-12-27 10:32 | Emergency (ER) | payer MEDICARE ==
[~2021-12-27] VITALS: Ht 170 cm; Wt 108.0 kg
[~2021-12-27 10:32] MED LIST changes: +ACET-2267 PO; +ALPR0.254 PO; +ASPI-1238 PO; +CARB15DR OT; +CARV12.53 PO; +CEFU500T63 PO; +DOXA4TAB2 PO; +FAMO20TA5 PO; +LOSA1TAB20 PO; +LOSA1TAB26; +PANT40TA52 PO; +POTA-179 PO
[2021-12-27 10:40] VITALS: BP_SYST 79
--- NOTE | 2021-12-27 11:34 | ED Cardiac General ---
History of Present Illness General Chief Complaint: Cardiac/General Problems Stated Complaint: PACEMAKER CHECK Nursing Triage Note: ARRIVED VIA AMB TO ROOM 01 WITH COMPLAINTS OF LEFT SIDED CHEST PRESSURE THAT STARTED LAST NIGHT. STATES IT WAS JUST A TWIGE LAST NIGHT AND SLEPT GREAT BUT WOKE UP WITH IT THIS AM. RECENT PACEMAKER PLACED 11/30. SHE CALLED THE 'S OFFICE WHO TOLD HER TO COME. Source: patient, old records Exam Limitations: no limitations History of Present Illness Date Seen by Provider: December 27, 2021 Time Seen by Provider: 11:22 Initial Comments This is a well-appearing 86-year-old female who presented to the ER via complaints of left-sided chest wall pressure that radiates down into her chest. States that she had a pacemaker placed by Dr. Sherman on November 30. Has not had any complications other than swelling at the site. Last night she felt a sharp "twinge" that lasted only for seconds but she has never experienced this type of sensation before. States that she did not sleep well last night and when she woke this morning she just had "lots of pressure". Allergies and Home Medications Allergies Coded Allergies: No Known Drug Allergies (Unverified , 01/23/18) Patient Home Medication List Home Medication List Reviewed: Yes ALPRAZolam (ALPRAZolam) 0.25 Mg Tablet, 0.25 MG PO Q8H PRN for ANXIETY, (Reporte d) Entered as Reported by: MACIEJ RICHARDS on 11/30/21 1607 Acetaminophen (Tylenol Extra Strength) 500 Mg Tablet, 1,000 MG PO Q6H PRN for PAIN-MILD (1-4), (Reported) Entered as Reported by: MACIEJ RICHARDS on 11/30/21 1607 Allopurinol (Allopurinol) 300 Mg Tablet, 300 MG PO HS, (Reported) Entered as Reported by: LALITA SERRATO on 01/23/18 1401 Amlodipine Besylate (Amlodipine Besylate) 10 Mg Tablet, 10 MG PO HS, (Reported) Entered as Reported by: LALITA SERRATO on 01/23/18 1401 Aspirin (Aspirin EC) 81 Mg Tablet., 81 MG PO DAILY, (Reported) Entered as Reported by: MACIEJ RICHARDS on 11/30/21 1607 Atorvastatin Calcium (Atorvastatin Calcium) 10 Mg Tablet, 10 MG PO HS, (Reported) Entered as Reported by: LALITA SERRATO on 01/23/18 1401 Carboxymethylcellulose Sodium (Refresh Tears) 0.5 % Drops, 1-2 DROPS OT UD PRN for DRY EYES, (Reported) Entered as Reported by: MACIEJ RICHARDS on 11/30/21 160 Carvedilol (Carvedilol) 12.5 Mg Tablet, 12.5 MG PO BID Prescribed by: DUTCH MONTOYA on 12/01/21 0840 Cefuroxime Axetil (Cefuroxime) 500 Mg Tablet, 500 MG PO BID Prescribed by: DUTCH MONTOYA on 12/01/21 0840 Doxazosin Mesylate (Doxazosin Mesylate) 4 Mg Tablet, 4 MG PO DAILY, (Reported) Entered as Reported by: MACIEJ RICHARDS on 11/30/211606 Duloxetine HCl (Duloxetine HCl) 60 Mg Capsule.dr, 60 MG PO HS, (Reported) Entered as Reported by: LALITA SERRATO on 01/23/18 140 Famotidine (Famotidine) 20 Mg Tablet, 20 MG PO HS, (Reported) Entered as Reported by: MACIEJ RICHARDS on 11/30/211606 Furosemide (Furosemide) 80 Mg Tablet, 80 MG PO DAILY, (Reported) Entered as Reported by: LALITA SERRATO on 01/23/18 140 Losartan/Hydrochlorothiazide (Losartan-Hctz 50-12.5 mg Tab) 50 Mg-12.5 Mg Tablet, 2 EACH PO DAILY, (Reported) Entered as Reported by: MACIEJ RICHARDS on 11/30/211606 Pantoprazole Sodium (Pantoprazole Sodium) 40 Mg Tablet.dr, 40 MG PO BID, (Reported) Entered as Reported by: MACIEJ RICHARDS on 11/30/211606 Potassium Chloride (Potassium Chloride) 20 Meq Tab.er.prt, 20 MEQ PO DAILY, (Reported) Entered as Reported by: MACIEJ RICHARDS on 11/30/211606 Review of Systems Review of Systems Constitutional: no symptoms reported EENTM: No Symptoms Reported Respiratory: No Symptoms Reported Cardiovascular: See HPI Gastrointestinal: No Symptoms Reported Genitourinary: No Symptoms Reported Musculoskeletal: neck pain, other (left RTC pain ) Skin: no symptoms reported Psychiatric/Neurological: No Symptoms Reported Endocrine: No Symptoms Reported Hematologic/Lymphatic: No Symptoms Reported Past [place]-Fnvtpu-Tqmvnq Hx Patient Social History Tobacco Use?: No Substance use?: No Immunizations Up To Date First/Initial COVID19 Vaccinat: YES Second COVID19 Vaccination Demarcus: YES COVID19 Vaccine Microscopist: DAGOBERTO Seasonal Allergies Seasonal Allergies: No Past Medical History Surgery/Hospitalization HX: PMH: ARTHRITIS, GERD, SIATICA, CAD, OSTEOPOROSIS, ELEVATED CHOL AND TRIGLICERIDES, BLADDER/BOWEL INC, DUMP SYNDROME, HTN, SLEEP APNEA, GASTRITIS, GOUT SX: HIATAL HERNIA REPAIR, RT HIP REPLACEMENT, HYSTERECTOMY, L KNEE REPLACED, GALLBLADDER Surgeries: Yes (R total hip, R TKR, lap hill, A&P repair, hernia repair) Appendectomy, Hysterectomy Respiratory: Yes Sleep Apnea Currently Using CPAP: Yes (AT HOME AT NIGHT) Cardiac: Yes (PVCS) High Cholesterol, 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 Neurological: No 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 Disorders: Yes (endometriosis) Female 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 Disorders: Endometriosis 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 0.0oz. 108.544392sx; 37.00 BMI Method: General Appearance: No Apparent Distress, WD/WN HEENT: PERRL/EOMI, Normal ENT Inspection, Pharynx Normal Neck: Full Range of Motion, Normal Inspection, Tender Lateral (left, chronic ) Respiratory: Lungs Clear, Normal Breath Sounds, No Accessory Muscle Use, No Respiratory Distress, Other (left chest wall has mild swelling, erythema, and warmth around pacer insertion site. Tender to touch. ) Cardiovascular: Regular Rate, Rhythm, Normal Peripheral Pulses Gastrointestinal: Normal Bowel Sounds, Non Tender, Soft Extremity: Normal Capillary Refill, Normal Inspection, Normal Range of Motion Neurologic/Psychiatric: Alert, Oriented x3, No Motor/Sensory Deficits, Normal Mood/Affect Skin: Normal Color, Warm/Dry Progress/Results/Core Measures Results/Orders Lab Results Laboratory Tests Test 12/27/21 11:10 Range/Units White Blood Count 9.8 4.3-11.0 10^3/uL Red Blood Count 3.96 3.80-5.11 10^6/uL Hemoglobin 12.4 11.5-16.0 g/dL Hematocrit 38 35-52 % Mean Corpuscular Volume 95 80-99 fL Mean Corpuscular Hemoglobin 31 25-34 pg Mean Corpuscular Hemoglobin Concent 33 32-36 g/dL Red Cell Distribution Width 14.3 10.0-14.5 % Platelet Count 169 130-400 10^3/uL Mean Platelet Volume 11.2 9.0-12.2 fL Immature Granulocyte % (Auto) 1 % Neutrophils (%) (Auto) 74 42-75 % Lymphocytes (%) (Auto) 14 12-44 % Monocytes (%) (Auto) 9 0-12 % Eosinophils (%) (Auto) 3 0-10 % Basophils (%) (Auto) 0 0-10 % Neutrophils # (Auto) 7.2 1.8-7.8 10^3/uL Lymphocytes # (Auto) 1.4 1.0-4.0 10^3/uL Monocytes # (Auto) 0.9 0.0-1.0 10^3/uL Eosinophils # (Auto) 0.3 0.0-0.3 10^3/uL Basophils # (Auto) 0.0 0.0-0.1 10^3/uL Immature Granulocyte # (Auto) 0.1 0.0-0.1 10^3/uL Prothrombin Time 13.1 12.2-14.7 SEC INR Comment 1.0 0.8-1.4 Activated Partial Thromboplast Time 30 24-35 SEC D-Dimer 0.75 H 0.00-0.49 UG/ML Sodium Level 140 135-145 MMOL/L Potassium Level 4.3 3.6-5.0 MMOL/L Chloride Level 103 98-107 MMOL/L Carbon Dioxide Level 23 21-32 MMOL/L Anion Gap 14 5-14 MMOL/L Blood Urea Nitrogen 25 H 7-18 MG/DL Creatinine 0.80 0.60-1.30 MG/DL Estimat Glomerular Filtration Rate 72 BUN/Creatinine Ratio 31 Glucose Level 140 H 70-105 MG/DL Calcium Level 9.6 8.5-10.1 MG/DL Corrected Calcium 9.4 8.5-10.1 MG/DL Magnesium Level 2.4 1.6-2.4 MG/DL Total Bilirubin 0.6 0.1-1.0 MG/DL Aspartate Amino Transf (AST/SGOT) 28 5-34 U/L Alanine Aminotransferase (ALT/SGPT) 24 0-55 U/L Alkaline Phosphatase 91 40-136 U/L Creatine Kinase MB 1.1 <6.6 NG/ML Myoglobin 53.2 10.0-92.0 NG/ML Troponin I < 0.028 <0.028 NG/ML B-Type Natriuretic Peptide 43.4 <100.0 PG/ML Total Protein 7.1 6.4-8.2 GM/DL Albumin 4.2 3.2-4.5 GM/DL Procalcitonin 0.05 <0.10 NG/ML My Orders Orders - MAUREEN MITCHELL PHOTOGRAPHER FINISH Cbc With Automated Diff (12/27/21 11:34) Magnesium (12/27/21 11:34) Chest 1 View, Ap/Pa Only (12/27/21 11:34) Comprehensive Metabolic Panel (12/27/21 11:34) Myoglobin Serum (12/27/21 11:34) Protime With Inr (12/27/21 11:34) Partial Thromboplastin Time (12/27/21 11:34) O2 (12/27/21 11:34) Monitor-Rhythm Ecg Trace Only (12/27/21 11:34) Ed Iv/Invasive Line Start (12/27/21 11:34) Bnp [place] (12/27/21 11:34) Fibrin Degradation Products (12/27/21 11:34) Troponin I [place] (12/27/21 11:34) Aspirin Chewable Tablet (Baby Aspirin Ch (12/27/21 11:45) Creatine Kinase Mb (12/27/21 11:34) Procalcitonin (Pct) (12/27/21 11:34) Ct Chest W (12/27/21 12:54) Ns Iv 500 Ml (Sodium Chloride 0.9%) (12/27/21 13:00) Morphine Injection (Morphine Injection (12/27/21 13:04) Ketorolac Injection (Toradol Injection) (12/27/21 14:45) Medications Given in ED Vital Signs/I&O 12/27/21 10:40 Temp 36.3 Pulse 86 Resp 16 B/P (MAP) 79/ Pulse Ox 98 O2 Delivery Room Air Initial ECG Impression Date: Dec 28, 2021 Initial ECG Impression Time: 10:46 Initial ECG Rate: 82 Initial ECG Intervals Atrial and Ventricular paced Initial ECG Comparisson: Unchanged Diagnostic Imaging Diagonstic Imaging: Xray Plain Films/CT/US/NM/MRI: chest Comments [facility] [place], [place] NAME: DAISHA CORNELIUS MED REC#: [id number] PT STATUS: DEP ER : 1935 PHYSICIAN: MAUREEN MITCHELL PHOTOGRAPHER FINISH ADMIT DATE: 12/27/21/ER Signed Date of Exam:12/27/21 CHEST 1 VIEW, AP/PA ONLY INDICATION: Chest pain. Portable AP view of chest is obtained with comparison made study of 12/01/2011 FINDINGS: There is mild cardiomegaly. Pulmonary vascularity is within normal limits. No pneumothorax or consolidation is identified. There is no definite pleural fluid. Advanced degenerative findings are seen in the shoulders, greater on the left. IMPRESSION: Mild cardiomegaly without other acute abnormality identified. There has been interval placement of left anterior chest wall dual-chamber cardiac pacemaker without evidence of complication. Dictated by: Dictated on workstation # [id number] Dict: 12/27/21 1155 Trans: 12/27/21 1701 [id number] Interpreted by: RM MELENDEZ MD Electronically signed by: RM MELENDEZ MD 12/27/21 1701 Diagonstic Imaging: CT Plain Films/CT/US/NM/MRI: chest Comments [facility] [place], [place] NAME: DAISHA CORNELIUS MED REC#: [id number] PT STATUS: DEP ER : 1935 PHYSICIAN: MAUREEN MITCHELL PHOTOGRAPHER FINISH ADMIT DATE: 12/27/21/ER Signed Date of Exam:12/27/21 CT CHEST W PROCEDURE: CT chest with contrast only. TECHNIQUE: Multiple contiguous axial images were obtained through the chest after administration of intravenous contrast. Auto Exposure Controls were utilized during the CT exam to meet ALARA standards for radiation dose reduction. INDICATION: Left chest wall tenderness with swelling and erythema. The lungs appear clear without evidence of mass or infiltrate. There is no significant pleural or pericardial fluid. No pathologically enlarged adenopathy is identified. Dual-chamber cardiac pacemaker is in place with lead projecting over the right atrium and ventricle. There is mild coronary artery calcification. Slight pericardial thickening is noted. Calcified granuloma is present in the left lower lobe. There is atherosclerotic calcification within the proximal right subclavian artery. There is fluid surrounding the battery pack in the left anterior chest wall along the upper left breast. No other fluid collection is identified. Note is made of extensive posterior hypertrophic spurring in the spinal canal to the right of midline at the T7-T8 level. IMPRESSION: Probable hematoma or seroma surrounding the battery pack in the left anterior chest wall. Otherwise, no definite acute abnormality is identified within the thorax. Dictated by: Dictated on workstation # [id number] Dict: 12/27/21 1434 Trans: 12/28/21 0832 [id number] Interpreted by: RM MELENDEZ MD Electronically signed by: RM MELENDEZ MD 12/28/21 0832 Departure Communication (Admissions) Time/Spoke to Consulting Phy: 15:[address] Sherman, cardiac workup negative, recommended providing NSAIDs and having patient follow up in his office tomorrow. Reviewed discharge POC with patient and daughter, they are agreeable with plan. Impression Primary Impression: Seroma after procedure Disposition: HOME, SELF-CARE Condition: Stable Departure-Patient Inst. Decision time for Depature: 15:12 Referrals: MACIEJ EASTMAN V DO (PCP/Family) Primary Care Physician Patient Instructions: HEMATOMA Add. Discharge Instructions: Plan: 1. Follow up with Dr. Sherman tomorrow at 1:20pm. 2. May take Ibuprofen 400mg every 6 hours as needed for pain or Tylenol 500mg every 6 hours as needed. 3. Avoid pulling, lifting, pushing, reaching with your left arm. 4. Return for any new, concerning, or worsening symptoms. All discharge instructions reviewed with patient and/or family. Voiced understanding. MAUREEN MITCHELL PHOTOGRAPHER FINISH December 27, 2021 11:34
[2021-12-27] MEDS ORDERED: ASPIRIN 81 MG CHEW (CHILDREN'S ASA) PO ONE (11:45)
--- NOTE | 2021-12-27 11:58 | Diagnostic Imaging Report ---
INDICATION: Chest pain. Portable AP view of chest is obtained with comparison made study of 12/01/2011 FINDINGS: There is mild cardiomegaly. Pulmonary vascularity is within normal limits. No pneumothorax or consolidation is identified. There is no definite pleural fluid. Advanced degenerative findings are seen in the shoulders, greater on the left. IMPRESSION: Mild cardiomegaly without other acute abnormality identified. There has been interval placement of left anterior chest wall dual-chamber cardiac pacemaker without evidence of complication. Dictated by: Dictated on workstation # [id number]
[2021-12-27 12:01] LABS: BASOPHILS % (AUTO) 0 % (0-10); EOSINOPHILS # (AUTO) 0.3 10^3/uL (0.0-0.3); EOSINOPHILS % (AUTO) 3 % (0-10); HEMATOCRIT 38 % (35-52); HEMOGLOBIN 12.4 g/dL (11.5-16.0); LYMPHOCYTES # (AUTO) 1.4 10^3/uL (1.0-4.0); LYMPHOCYTES % (AUTO) 14 % (12-44); MEAN CORPUSCULAR HEMOGLOBIN 31 pg (25-34); MEAN CORPUSCULAR HGB CONC 33 g/dL (32-36); MEAN CORPUSCULAR VOLUME 95 fL (80-99); MEAN PLATELET VOLUME 11.2 fL (9.0-12.2); MONOCYTES # (AUTO) 0.9 10^3/uL (0.0-1.0); MONOCYTES % (AUTO) 9 % (0-12); NEUTROPHILS # (AUTO) 7.2 10^3/uL (1.8-7.8); NEUTROPHILS % (AUTO) 74 % (42-75); PLATELET COUNT 169 10^3/uL (130-400); WHITE BLOOD COUNT 9.8 10^3/uL (4.3-11.0)
[2021-12-27 12:10] LABS: ALBUMIN 4.2 GM/DL (3.2-4.5); POTASSIUM 4.3 MMOL/L (3.6-5.0)
[2021-12-27 12:11] LABS: CALCIUM 9.6 MG/DL (8.5-10.1)
[2021-12-27 12:12] LABS: TOTAL PROTEIN 7.1 GM/DL (6.4-8.2)
[2021-12-27 12:14] LABS: BILIRUBIN,TOTAL 0.6 MG/DL (0.1-1.0)
[2021-12-27 12:16] LABS: CREATININE SERUM 0.8 MG/DL (0.60-1.30)
[2021-12-27 12:17] LABS: PROTHROMBIN TIME PATIENT 13.1 SEC (12.2-14.7)
[2021-12-27 12:19] LABS: MAGNESIUM 2.4 MG/DL (1.6-2.4)
[2021-12-27 12:25] LABS: CREATINE KINASE MB 1.1 NG/ML (<6.6)
[2021-12-27] MEDS ORDERED: NS IV 500 ML 500 ML IV ONE (13:00)
[2021-12-27] MEDS ORDERED: morphine INJ 10 MG/ML 1ML (SYR OR VIAL) IVP STA (13:04)
[2021-12-27] MEDS ORDERED: NS 100 ML (IVPB) BAG IV ONE (14:30)
[2021-12-27] MEDS ORDERED: CATHETER FLUSH 10 ML SYR IV PRN (14:30)
[2021-12-27] MEDS ORDERED: HOLD METFORMIN - RECEIVED CONTRAST 20 ML VIAL IV SCH (14:30)
[2021-12-27] MEDS ORDERED: IOHEXOL 350 MG/ML 100 ML (OMNIPAQUE 350) VIAL IV ONE (14:30)
[2021-12-27] MEDS ORDERED: KETOROLAC 30 MG/ML VIAL IVP ONE (14:45)
--- NOTE | 2021-12-27 14:49 | Diagnostic Imaging Report ---
PROCEDURE: CT chest with contrast only. TECHNIQUE: Multiple contiguous axial images were obtained through the chest after administration of intravenous contrast. Auto Exposure Controls were utilized during the CT exam to meet ALARA standards for radiation dose reduction. INDICATION: Left chest wall tenderness with swelling and erythema. The lungs appear clear without evidence of mass or infiltrate. There is no significant pleural or pericardial fluid. No pathologically enlarged adenopathy is identified. Dual-chamber cardiac pacemaker is in place with lead projecting over the right atrium and ventricle. There is mild coronary artery calcification. Slight pericardial thickening is noted. Calcified granuloma is present in the left lower lobe. There is atherosclerotic calcification within the proximal right subclavian artery. There is fluid surrounding the battery pack in the left anterior chest wall along the upper left breast. No other fluid collection is identified. Note is made of extensive posterior hypertrophic spurring in the spinal canal to the right of midline at the T7-T8 level. IMPRESSION: Probable hematoma or seroma surrounding the battery pack in the left anterior chest wall. Otherwise, no definite acute abnormality is identified within the thorax. Dictated by: Dictated on workstation # [id number]
== END 2021-12-27 15:57 | disposition home or self-care (01) ==
LOC: EDUNIT# 10:32 → ER 10:34
DX: L76.34 Postprocedural seroma of skin and subcutaneous tissue following other procedure (principal); G47.30 Sleep apnea, unspecified; Z99.89 Dependence on other enabling machines and devices; Z95.0 Presence of cardiac pacemaker
CPT/HCPCS: 36415; 71045; 71260; 80053; 82553; 83735; 83874; 83880; 84145; 84484; 85025; 85379; 85610; 85730; 93005

== ENCOUNTER 2021-12-31 07:46 | Emergency (ER) | payer MEDICARE ==
[~2021-12-31] VITALS: Ht 170 cm; Wt 108.0 kg
--- NOTE | 2021-12-31 08:07 | ED Neck-Back Pain/Injury ---
General Chief Complaint: Head/Cervical Problems Stated Complaint: LEFT SHOULDER/NECK PAIN Source of Information: Patient, Family (daughter) History of Present Illness Date Seen by Provider: Dec 31, 2021 Time Seen by Provider: 07:55 Initial Comments Patient is an 86-year-old female status post pacemaker placement approximately 1 month ago. She has had some difficulty with the pacemaker insertion site over the last couple of weeks with an infection, currently on antibiotics. There was a hematoma that developed around the pacemaker site. She did have a chemistry, x-ray EKG and chest x-ray as well as a CT chest done last Sunday. No abnormalities in placement were found. She woke up this morning, thought she slept wrong and had a sharp pain that she rates a "7" to the left lateral neck radiating from the supraclavicular region. She states nothing makes it any better or worse. She is a little nauseous. She thinks that she may be a little short of breath. No other recent complaints of illness or injury. She has had previous left rotator cuff repair and has limited mobility to that shoulder. She has certainly not been reaching above her head or forward since the pacemaker placement. All other review of systems reviewed and negative except as stated. Timing/Duration: 1-3 Hours Severity: Moderate ("7") Method of Injury: Unknown Associated Symptoms: denies symptoms Allergies and Home Medications Allergies Coded Allergies: No Known Drug Allergies (Unverified , 01/23/18) Patient Home Medication List Home Medication List Reviewed: Yes ALPRAZolam (ALPRAZolam) 0.25 Mg Tablet, 0.25 MG PO Q8H PRN for ANXIETY, (Reported) Entered as Reported by: MACIEJ RICHARDS on 11/30/21 1607 Acetaminophen (Tylenol Extra Strength) 500 Mg Tablet, 1,000 MG PO Q6H PRN for PAIN-MILD (1-4), (Reported) Entered as Reported by: MACIEJ RICHARDS on 11/30/21 1607 Allopurinol (Allopurinol) 300 Mg Tablet, 300 MG PO HS, (Reported) Entered as Reported by: LALITA SERRATO on 01/23/18 1401 Amlodipine Besylate (Amlodipine Besylate) 10 Mg Tablet, 10 MG PO HS, (Reported) Entered as Reported by: LALITA SERRATO on 01/23/18 1401 Aspirin (Aspirin EC) 81 Mg Tablet.dr, 81 MG PO DAILY, (Reported) Entered as Reported by: MACIEJ RICHARDS on 11/30/21 160 Atorvastatin Calcium (Atorvastatin Calcium) 10 Mg Tablet, 10 MG PO HS, (Reported) Entered as Reported by: LALITA SERRATO on 01/23/18 140 Carboxymethylcellulose Sodium (Refresh Tears) 0.5 % Drops, 1-2 DROPS OT UD PRN for DRY EYES, (Reported) Entered as Reported by: MACIEJ RICHARDS on 11/30/21 160 Carvedilol (Carvedilol) 12.5 Mg Tablet, 12.5 MG PO BID Prescribed by: DUTCH MONTOYA on 12/01/21 0840 Cefuroxime Axetil (Cefuroxime) 500 Mg Tablet, 500 MG PO BID Prescribed by: DUTCH MONTOYA on 12/01/21 0840 Doxazosin Mesylate (Doxazosin Mesylate) 4 Mg Tablet, 4 MG PO DAILY, (Reported) Entered as Reported by: MACIEJ RICHARDS on 11/30/211606 Duloxetine HCl (Duloxetine HCl) 60 Mg Capsule.dr, 60 MG PO HS, (Reported) Entered as Reported by: LALITA SERRATO on 01/23/18 140 Famotidine (Famotidine) 20 Mg Tablet, 20 MG PO HS, (Reported) Entered as Reported by: MACIEJ RICHARDS on 11/30/211606 Furosemide (Furosemide) 80 Mg Tablet, 80 MG PO DAILY, (Reported) Entered as Reported by: LALITA SERRATO on 01/23/18 140 Losartan/Hydrochlorothiazide (Losartan-Hctz 50-12.5 mg Tab) 50 Mg-12.5 Mg Tablet, 2 EACH PO DAILY, (Reported) Entered as Reported by: MACIEJ RICHARDS on 11/30/21 160 Pantoprazole Sodium (Pantoprazole Sodium) 40 Mg Tablet.dr, 40 MG PO BID, (Reported) Entered as Reported by: MACIEJ RICHARDS on 11/30/211606 Potassium Chloride (Potassium Chloride) 20 Meq Tab.er.prt, 20 MEQ PO DAILY, (Reported) Entered as Reported by: MACIEJ RICHARDS on 11/30/211606 Review of Systems Constitutional: see HPI EENTM: no symptoms reported Respiratory: short of breath Cardiovascular: no symptoms reported Gastrointestinal: nausea Musculoskeletal: neck pain (left lateral lower neck "sharp") Skin: no symptoms reported Psychiatric/Neurological: Anxiety All Other Systems Reviewed Negative Unless Noted: Yes Past Wyreppv-Trrhue-Alzskr Hx Immunizations Up To Date First/Initial COVID19 Vaccinat: YES Second COVID19 Vaccination Demarcus: YES Seasonal Allergies Seasonal Allergies: No Past Medical History Surgery/Hospitalization HX: PMH: ARTHRITIS, GERD, SIATICA, CAD, OSTEOPOROSIS, ELEVATED CHOL AND TRIGLICERIDES, BLADDER/BOWEL INC, DUMP SYNDROME, HTN, SLEEP APNEA, GASTRITIS, GOUT SX: HIATAL HERNIA REPAIR, RT HIP REPLACEMENT, HYSTERECTOMY, L KNEE REPLACED, GALLBLADDER Surgeries: Yes (R total hip, R TKR, lap hill, A&P repair, hernia repair) Appendectomy, Hysterectomy Respiratory: Yes Sleep Apnea Currently Using CPAP: Yes (AT HOME AT NIGHT) Cardiac: Yes (PVCS) High Cholesterol, 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 Neurological: No 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 Disorders: Yes (endometriosis) Female 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 Disorders: 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 0.0oz. [id number]; 37.00 BMI Method: General Appearance: WD/WN, Anxious (mildly) HEENT: PERRL/EOMI Neck: Normal Inspection, Other (Tenderness over the proximal trapezius insertion in the upper shoulder left lateral neck. No overlying erythema or excessive swelling or fluctuance.) Cardiovascular: Regular Rate, Rhythm, Normal Peripheral Pulses, Other (Pacemaker wound looks great, healing well. She does have some ful lness/swelling inferior to the pacemaker that is nontender, not erythematous.) Respiratory: Lungs Clear, Normal Breath Sounds, No Accessory Muscle Use, No Respiratory Distress Gastrointestinal: Non Tender, Soft Extremity: Normal Inspection, Normal Range of Motion (limited ROM left shoulder due to previous rotator cuff surgery) Neurologic/Psychiatric: Alert, Oriented x3, No Motor/Sensory Deficits, Other (slightly anxious) Skin: Normal Color, Warm/Dry Progress/Results/Core Measures Results/Orders Lab Results Laboratory Tests Test 12/31/21 08:21 Range/Units Sodium Level 140 135-145 MMOL/L Potassium Level 3.7 3.6-5.0 MMOL/L Chloride Level 101 98-107 MMOL/L Carbon Dioxide Level 23 21-32 MMOL/L Anion Gap 16 H 5-14 MMOL/L Blood Urea Nitrogen 22 H 7-18 MG/DL Creatinine 0.81 0.60-1.30 MG/DL Estimat Glomerular Filtration Rate 71 BUN/Creatinine Ratio 27 Glucose Level 141 H 70-105 MG/DL Calcium Level 9.5 8.5-10.1 MG/DL My Orders Orders - RONALDO FARRIS MD Ekg Tracing (12/31/21 07:59) Chest 1 View, Ap/Pa Only (12/31/21 08:01) Basic Metabolic Panel (12/31/21 08:01) Ed Iv/Invasive Line Start (12/31/21 08:01) Acetaminophen Tablet (Tylenol Tablet) (12/31/21 08:15) Medications Given in ED Current Medications Medications Dose Ordered Sig/Bulmaro Route Start Time Stop Time Status Last Admin Dose Admin Acetaminophen 1,000 mg ONCE ONCE PO 12/31/21 08:15 12/31/21 08:16 DC 12/31/21 08:09 1,000 MG Vital Signs/I&O 12/31/21 07:52 Temp 36.1 Pulse 88 Resp 18 B/P (MAP) 143/80 (101) Pulse Ox 95 O2 Delivery Room Air Progress Progress Note : Time: 09:26 Progress Note Patient reassessed after labs, EKG and chest x-ray. She was given Tylenol and states that she feels much much better. Labs look good, EKG shows a paced rhythm and chest x-ray shows no significant acute abnormalities, the radiologist does mention a small left pleural effusion. Her vital signs are stable. She is reassured and would like to go home. Return precautions are discussed with both her and her daughter. She verbalized understanding. All questions are sought and answered. Initial ECG Impression Date: Dec 31, 2021 Initial ECG Impression Time: 08:06 Initial ECG Rate: 74 Initial ECG Rhythm: Normal Sinus Comment paced rhythm at 74bpm; wide QRS at 156; Qtc 491 and W[place] 178 Diagnostic Imaging Diagonstic Imaging: Xray Plain Films/CT/US/NM/MRI: chest Comments [facility] [place], [place] NAME: DAISHA CORNELIUS [facility] REC#: [id number] PT STATUS: REG ER : 1935 PHYSICIAN: RONALDO FARRIS MD ADMIT DATE: 12/31/21/ER Draft Date of Exam:12/31/21 CHEST 1 VIEW, AP/PA ONLY EXAM: CHEST 1 VIEW, AP/PA ONLY INDICATION: Chest pain. COMPARISON: 12/27/2021 FINDINGS: Cardiomegaly with mild pulmonary vascular congestion is stable. Cardiac pacer. No focal pulmonary opacity. Small right pleural effusion or thickening. No acute osseous findings. IMPRESSION: 1. Small right pleural effusion or thickening is new compared to the prior. 2. Stable cardiomegaly and mild pulmonary vascular congestion. Dictated on workstation # [id number] Dict: 12/31/21 0830 Trans: 12/31/21 0832 [facility] [id number] Interpreted by: ELIZABETH AQUINO MD Electronically signed by: Departure Impression Primary Impression: Musculoskeletal neck pain Additional Impression: Musculoskeletal pain Disposition: 01 HOME, SELF-CARE Condition: Improved Departure-Patient Inst. Decision time for Depature: 09:28 Referrals: [facility]MAN [facility] (PCP/Family) Primary Care Physician Patient Instructions: Neck Pain Add. Discharge Instructions: Take extra strength Tylenol, 2 tablets every 6 hours as needed for pain. You can also alternate heat and ice packs to the area of tenderness and discomfort. If you develop shortness of breath, worsening neck pain, nausea, change in quality of pain or any other emergent concerning symptoms please come back to [facility] emergency room for reevaluation. Follow-up with both Dr. Sherman and your primary doctor as directed/needed. Copy Copies To 1: MACIEJ EASTMAN DO Copies To 2: ROMAN SHERMAN MD FACP FACC CCDS RONALDO FARRIS MD Dec 31, 2021 08:07
[2021-12-31] MEDS ORDERED: ACETAMINOPHEN 500 MG TAB (TYLENOL) PO ONE (08:15)
--- NOTE | 2021-12-31 08:33 | Diagnostic Imaging Report ---
EXAM: CHEST 1 VIEW, AP/PA ONLY INDICATION: Chest pain. COMPARISON: 12/27/2021 FINDINGS: Cardiomegaly with mild pulmonary vascular congestion is stable. Cardiac pacer. No focal pulmonary opacity. Small right pleural effusion or thickening. No acute osseous findings. IMPRESSION: 1. Small right pleural effusion or thickening is new compared to the prior. 2. Stable cardiomegaly and mild pulmonary vascular congestion. Dictated by: Dictated on workstation # [id number]
[2021-12-31 08:36] LABS: POTASSIUM 3.7 MMOL/L (3.6-5.0)
[2021-12-31 08:38] LABS: CALCIUM 9.5 MG/DL (8.5-10.1)
[2021-12-31 08:42] LABS: CREATININE SERUM 0.81 MG/DL (0.60-1.30)
[2021-12-31 09:35] VITALS: BP 148/74
== END 2021-12-31 09:33 | disposition home or self-care (01) ==
LOC: EDUNIT# 07:46 → ER 07:49
DX: M54.2 Cervicalgia (principal); M25.512 Pain in left shoulder; J90 Pleural effusion, not elsewhere classified; G47.30 Sleep apnea, unspecified; Z99.89 Dependence on other enabling machines and devices; Z79.2 Long term (current) use of antibiotics; Z95.0 Presence of cardiac pacemaker
CPT/HCPCS: 36415; 71045; 80048; 93005

== ENCOUNTER → 2022-04-14 | Outpatient (CLI) | payer MEDICARE | LOC: CARD 14:01 | PROVIDERS: ATTEND Internal Medicine Cardiovascular Disease | DX: I35.1 Nonrheumatic aortic (valve) insufficiency (principal); I51.7 Cardiomegaly | CPT/HCPCS: 93306 ==

== ENCOUNTER 2022-04-25 09:38 | Outpatient (CLI) | payer MEDICARE ==
[~2022-04-25] VITALS: Ht 167.6 cm; Wt 101.5 kg
[~2022-04-25 09:38] MED LIST changes: -APIX5TAB PO; -CATHETER FLUSH 10 ML SYR IVP PRN; -CNC1KV IM; -DICL100G13 TP; -REGADENOSON 0.4 MG/5 ML SYR (LEXISCAN) IV ONE
[2022-04-25] MEDS ORDERED: APIX5TAB PO (11:18)
[2022-04-25] MEDS ORDERED: DICL100G13 TP (11:18)
[2022-04-25] MEDS ORDERED: CNC1KV IM (11:18)
[2022-04-25] MEDS ORDERED: DOCU-143 PO (11:18)
[2022-04-26] MEDS ORDERED: ALLO300T2 PO (12:03)
== END 2022-04-25 11:22 ==
LOC: PREOP 09:38
PROVIDERS: ATTEND Surgery
DX: Z01.818 Encounter for other preprocedural examination (principal); K21.9 Gastro-esophageal reflux disease without esophagitis; R63.4 Abnormal weight loss; R53.1 Weakness

== ENCOUNTER → 2022-04-25 | Outpatient (CLI) | payer MEDICARE ==
[~2022-04-25] MED LIST changes: +APIX5TAB PO; +CATHETER FLUSH 10 ML SYR IVP PRN; +CNC1KV IM; +DICL100G13 TP; +REGADENOSON 0.4 MG/5 ML SYR (LEXISCAN) IV ONE
[2022-04-25 13:07] VITALS: BP 142/85
--- NOTE | 2022-04-26 11:10 | STRESS TEST ---
DATE OF SERVICE: 04/25/2022 RESTING AND POST REGADENOSON TECHNETIUM-99M TETROFOSMIN SPECT CT IMAGING Baseline images were carried out after injection of 10.06 mCi of technetium-99m Tetrofosmin. This was followed by 0.4 mg regadenoson and 31.4 mCi of technetium-99m Tetrofosmin for stress imaging. The electrocardiogram showed a paced ventricular rhythm. There also appeared to be atrial pacing. A few [place] beats were seen. The patient tolerated the procedure well. Review of images at rest and following stress indicates an apical perfusion defect that is fixed. Gated images show localized apical akinesis. Left ventricular ejection fraction is calculated to be 59%. CONCLUSIONS: 1. 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 2. Apical akinesis. 3. Well preserved global left ventricular systolic function with a calculated ejection fraction of 59%. Job ID: [id number] DocumentID: [id number] Dictated Date: 04/26/2022 09:39:32 Medical Chief Technician Date: 04/26/2022 11:09:28 Dictated By: ROMAN TORRES MD, MA, FACP, FACC,
== END ==
LOC: CARD 11:45
PROVIDERS: ATTEND Internal Medicine Cardiovascular Disease
DX: R06.09 Other forms of dyspnea (principal)
CPT/HCPCS: 78452; 93017; A9502

== ENCOUNTER 2022-04-26 11:14 | Day surgery (SDC) | payer MEDICARE ==
[~2022-04-26] VITALS: Ht 167.6 cm; Wt 101.5 kg
[~2022-04-26 11:14] MED LIST changes: +APIX5TAB PO; +CNC1KV IM; +DICL100G13 TP
[2022-04-26] MEDS ORDERED: LACTATED RINGERS 1,000 ML IV STA (11:29)
[2022-04-26 11:30] VITALS: BP 154/82
[2022-04-26] MEDS ORDERED: HURRICAINE EXT TUBE (BENZOCAINE) XX PRN (11:30)
[2022-04-26] MEDS ORDERED: LIDOCAINE JELLY 2% 6 ML SYRINGE MM PRN (11:30)
[2022-04-26] MEDS ORDERED: ALLO300T2 PO (12:03)
--- NOTE | 2022-04-26 12:10 | Progress Note-Pre Operative ---
Pre-Operative Progress Note Date of Available H&P: Apr 26, 2022 Date H&P Reviewed: Apr 26, 2022 Time H&P Reviewed: 11:30 History & Physical: No changes noted Pre-Operative Diagnosis: dysphagia, weight loss ROSEMARY RIVERA MD Apr 26, 2022 12:10
--- NOTE | 2022-04-26 12:11 | Discharge Inst-Surgical ---
D/C Lap Instructions-MIGUEL Follow Up Activity as tolerated High Fiber Diet 25g or more per day Avoid Alcohol, Caffeine, Spicy [place] and Acid foods. Drink 64 fluid oz or more of fluids per day. Symptoms to Report: Fever over 101 degree F, Nausea/Vomiting If any problems/questions: Contact your physician or go to Emergency Room ROSEMARY RIVERA MD Apr 26, 2022 12:11
[2022-04-26] MEDS ORDERED: ONDANSETRON 4 MG/2 ML (SDV) Z0FRAN IVP PRN (12:15)
[2022-04-26] MEDS ORDERED: ONDANSETRON 4 MG (ZOFRAN) ORAL DISSOLVE TAB PO PRN (12:15)
[2022-04-26] MEDS ORDERED: proPOfol 200 MG/20 ML (DIPRIVAN) VIAL IV ONE (13:05)
[2022-04-26 13:30] VITALS: BP 140/82
[2022-04-26 13:35] VITALS: BP 133/85
--- NOTE | 2022-04-26 13:41 | Progress Note-Post Operative ---
Post-Operative Progess Note Surgeon (s)/Latex Caster (s) Surgeon ROSEMARY RIVERA MD Latex Caster: none Pre-Operative Diagnosis dysphagia, weight loss Post-Operative Diagnosis reflux esophagitis(grade B-C), mild distal esophageal stricture, small recurrent HH(2cm), moderate gastritis. Procedure & Operative Findings Date of Procedure 04/26/22 Procedure Performed/Findings EGD with bx and balloon dilatation. Anesthesia Type mac Estimated Blood Loss Estimated blood loss (mL): mac Specimens/Packing Specimens Removed ge jxn, antrum ROSEMARY RIVERA MD Apr 26, 2022 13:40
--- NOTE | 2022-04-26 13:46 | Anesthesia-General Post-Op ---
MAC Patient Condition Mental Status/LOC: Same as Preop Cardiovascular: Satisfactory Nausea/Vomiting: Absent Respiratory: Satisfactory Pain: Controlled Complications: Absent Post Op Complications Complications None Follow Up Care/Instructions Patient Instructions None needed. Anesthesiology Discharge Order Discharge Order Patient is doing well, no complaints, stable vital signs, no apparent adverse anesthesia problems. No complications reported per nursing. CARLOS GRAHAM DO Apr 26, 2022 13:46
[2022-04-26 14:00] VITALS: BP 127/70
[2022-04-26 14:15] VITALS: BP 127/70
--- NOTE | 2022-04-26 22:26 | OPERATIVE REPORT ---
DATE OF SERVICE: 04/26/2022 ATTENDING PRIMARY CARE PHYSICIAN: Dr. Edson Wnin. PREOPERATIVE DIAGNOSES: Dysphagia, gastroesophageal reflux disease, weight loss. POSTOPERATIVE DIAGNOSES: Reflux esophagitis, Bennett between grade B and C, mild distal esophageal stricture, small hiatal hernia approximately 2 cm in size, moderate gastritis. No distal obstructions. PROCEDURE: EGD with biopsy and balloon dilatation. SURGEON: Rosemary Rivera MD. ANESTHESIA: Monitored anesthesia care. ESTIMATED BLOOD LOSS: Minimal. FINDINGS: Reflux esophagitis, Bennett between grade B and C, mild distal esophageal stricture, small hiatal hernia approximately 2 cm in size, moderate gastritis. No distal obstructions. DISPOSITION: The patient tolerated the procedure well. INDICATIONS: The patient is an 86-year-old female known to us. She was seen in 01/2015 for recurrent GERD type of symptoms and underwent an EGD and was found to have a reflux esophagitis, Bennett grade B and a small recurrent hiatal hernia approximately 1.5 cm in size. Biopsies were negative for H. pylori as well as negative for Hallman's esophagus. She reports in the past two months she has had dysphagia with pressure sensation in the substernal region, which would move upward like a column into the neck. She reports that this would either reduce on its own over time or else she would have some episodes of regurgitation. She does not report any hematemesis, no coffee-ground emesis. She is on acid reducers currently with Protonix as well as Pepcid. DESCRIPTION OF PROCEDURE: The patient was brought to the endoscopy suite, laid in the left lateral decubitus position. After adequate IV and pain medication and monitored anesthesia care, the mouthpiece was applied. The endoscope was placed in the mouth, visualizing the pharynx and hypopharyngeal region. Vocal cords, epiglottis and vallecula identified and appeared to be normal. The endoscope was then gently intubated into the esophageal opening, esophagus insufflated. The endoscope was then advanced through the first, second and third portion of esophagus at the level of the GE junction, reflux esophagitis, Bennett between grade B and C identified with a mild distal esophageal stricture. A biopsy was taken with forceps with visualization of good hemostasis. The endoscope was then advanced in the stomach and endoscope retroflexed, visualizing a small recurrent hiatal hernia approximately 2 cm in size. There was a moderate severity gastritis. No formal ulcerations, polyps, or any neoplasms. A biopsy was taken of the stomach antrum with visualization of good hemostasis. The endoscope was then advanced through the pylorus and the first and second portion of the duodenum, which appeared normal with no distal obstructions. The balloon was then placed in the stomach and pulled back to the area of the stricture. We then proceeded in a graded stepwise fashion from 2, 4, then eventually 6 atmospheres of pressure or 20 mm in luminal diameter with moderate resistance and left this in place for approximately 60 seconds. The balloon was then desufflated and removed with visualization of good hemostasis as well as no mucosal tears. The endoscope was then slowly withdrawn while taking a second look and suctioning of residual air with no additional findings. The patient tolerated the procedure well. We will recommend the necessary lifestyle and dietary accommodation including small and more frequent meals, avoidance of eating at night as well as head elevation while lying supine. We will also change up her acid reduction medication regimen now to Protonix 40 mg daily to discontinue her Pepcid and to start omeprazole 40 mg daily to be taken at a different time during the day. She will also be instructed to proceed with the necessary lifestyle and dietary accommodation including small and more frequent meals, avoiding to eating at night as well as head elevation while lying supine. She also needs to avoid caffeinated beverages, spicy, greasy and acidic foods. If she does have recurrent dysphagia, we will have her followup and proceed with repeat dilatation. Job ID: [id number] DocumentID: [id number] Dictated Date: 04/26/2022 13:36:07 Order Analyst Date: 04/26/2022 22:25:47 Dictated By: ROSEMARY RIVERA MD
== END 2022-04-26 14:15 | disposition home or self-care (01) ==
LOC: ENDO 11:14
PROVIDERS: ATTEND Surgery
DX: K21.00 Gastro-esophageal reflux disease with esophagitis, without bleeding (principal); K22.2 Esophageal obstruction; K44.9 Diaphragmatic hernia without obstruction or gangrene; K31.9 Disease of stomach and duodenum, unspecified; K29.70 Gastritis, unspecified, without bleeding; Z79.899 Other long term (current) drug therapy; E66.01 Morbid (severe) obesity due to excess calories; Z68.36 Body mass index [BMI] 36.0-36.9, adult

== ENCOUNTER 2022-05-24 12:05 | Outpatient (CLI) | payer MEDICARE ==
[~2022-05-24] VITALS: Ht 167.6 cm; Wt 100.2 kg
== END 2022-05-24 12:46 | disposition home or self-care (01) ==
LOC: PREOP 12:05
PROVIDERS: ATTEND Surgery
DX: Z01.818 Encounter for other preprocedural examination (principal)

== ENCOUNTER 2022-05-26 10:15 | Day surgery (SDC) | payer MEDICARE ==
--- NOTE | 2022-05-24 18:37 | HISTORY AND PHYSICAL ---
DATE OF SERVICE: DATE OF ADMISSION: 05/26/2022. ATTENDING PRIMARY CARE PHYSICIAN: Dr. Edson Winn. HISTORY OF PRESENT ILLNESS: The patient is an 86-year-old female known to us. She was seen on 02/10/2022 for recurrent reflux-type of symptoms and underwent an EGD and was found to have a small recurrent hiatal hernia and biopsies were negative for Hallman's esophagus as well as H. pylori. She had reported that reflux symptoms had worsened, and she developed dysphagia. On 04/26/2022, she underwent an EGD and was found to have worsening reflux esophagitis as well as a distal esophageal stricture and a slightly larger hiatal hernia 2 cm with a moderate gastritis. She underwent balloon dilatation. She reports that her dysphagia issues have improved; however, she has had worsening fatigue in the past four months and discomfort in her back and her abdomen that she cannot fully describe. She states that she has lost about 20 pounds in the past few months and has had decreased appetite and constipation. Because of the symptoms, her primary care ordered a CT scan, and she was found to have enlarged lymph nodes at the aortic bifurcation. This was followed by a PET scan, which did show bulky retroperitoneal lymphadenopathy as well as bilateral iliac chain lymphadenopathy concerning for lymphoma as well as a possible metastasis. She was referred over to us for a colonoscopy. This is to rule out a potential colonic or rectal adenocarcinoma causing the lymphadenopathy. She states that her last colonoscopy was greater than 10 years ago. She does not report any red blood per rectum nor any dark tarry stools as well as no family history of colon cancer. PAST MEDICAL HISTORY: 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, gout, osteoarthritis, hyperlipidemia, fibromyalgia, GERD, osteoporosis, diverticulosis, depression, vitamin B12 deficiency, coronary artery disease, history of PVCs, tinnitus, incontinence, obstructive sleep apnea. PAST SURGICAL HISTORY: Right total hip arthroplasty in 2009, anterior and posterior repair 2000, total hysterectomy and appendectomy in ____, laparoscopic Hill gastropexy 2003, right total knee arthroplasty 2018, laparoscopic cholecystectomy and ventral abdominal hernia repair and umbilical hernia 06/2019, pacemaker implantation for symptomatic bradycardia 2021, bilateral cataracts. ALLERGIES: No known drug allergies. MEDICATIONS: Colace, alprazolam, duloxetine, diclofenac potassium, Eliquis, atorvastatin, famotidine, furosemide, carvedilol, amlodipine, doxazosin, Protonix, losartan/hydrochlorothiazide. SOCIAL HISTORY: Negative smoke, negative alcohol. FAMILY HISTORY: Father, cerebrovascular accident. Mother, hypertension. Sibling with myocardial infarction. VITAL SIGNS: Stable. Blood pressure 147/73. Current weight 223.7 pounds at 5 feet 6 inches and body mass index is 36.1. REVIEW OF SYSTEMS: Well-nourished female currently in no acute distress. She is not experiencing any shortness of breath or difficulty breathing. No chest pain, palpitations, diaphoresis. No nausea, vomiting; however, early satiety and some approximately a 20-pound weight loss in the past four months. She also reports a history of constipation, no red blood per rectum, no dark tarry stools. No fever, chills with approximately 25-pound weight loss in the past 4 months. No cervical, axillary, nor inguinal lymphadenopathy. No fever, chills. All other review of systems negative. PHYSICAL EXAMINATION: CHEST: Clear. Good breath sounds bilateral. HEART: Regular, no murmurs. EXTREMITIES: No lower extremity edema, negative Homans sign. HEENT: No scleral icterus. NECK: No cervical lymphadenopathy. ABDOMEN: Soft, nondistended. There is mild discomfort upon deep palpation. There are no palpable masses. SKIN: Warm, dry. ASSESSMENT AND PLAN: An 86-year-old female with a bulky retroperitoneal and iliac chain lymphadenopathy of unknown etiology; however, this may represent a lymphoma; however, she has not had a colonoscopy in greater than 10 years and would need to rule out a potential colonic or rectal adenocarcinoma and we will proceed with scheduling her for a colonoscopy on 05/26/2022. Job ID: [id number] DocumentID: [id number] Dictated Date: 05/23/2022 16:27:24 Therapist Occupational Date: 05/23/2022 16:45:23 Dictated By: ROSEMARY RIVERA MD
[~2022-05-26] VITALS: Ht 167.6 cm; Wt 100.2 kg
[2022-05-26] MEDS ORDERED: LACTATED RINGERS 1,000 ML IV STA (10:26)
[2022-05-26] MEDS ORDERED: LIDOCAINE JELLY 2% 6 ML SYRINGE MM PRN (10:30)
[2022-05-26 10:35] VITALS: BP 132/65
[2022-05-26] MEDS ORDERED: PROPOFOL INJECTION 50 ML IV ONE (11:47)
--- NOTE | 2022-05-26 12:16 | Progress Note-Pre Operative ---
Pre-Operative Progress Note Date of Available H&P: May 26, 2022 Date H&P Reviewed: May 26, 2022 Time H&P Reviewed: 11:45 History & Physical: No changes noted Pre-Operative Diagnosis: retroperitoneal lymphadenopathy ROSEMARY RIVERA MD May 26, 2022 12:16
--- NOTE | 2022-05-26 12:18 | Discharge Inst-Surgical ---
D/C Lap Instructions-MIGUEL Follow Up Activity as tolerated High Fiber Diet 25g or more per day Avoid Alcohol, Caffeine, Spicy [place] and Acid foods. Drink 64 fluid oz or more of fluids per day. Symptoms to Report: Fever over 101 degree F, Nausea/Vomiting If any problems/questions: Contact your physician or go to Emergency Room ROSEMARY RIVERA MD May 26, 2022 12:18
[2022-05-26] MEDS ORDERED: ONDANSETRON 4 MG/2 ML (SDV) Z0FRAN IVP PRN (12:30)
[2022-05-26] MEDS ORDERED: ONDANSETRON 4 MG (ZOFRAN) ORAL DISSOLVE TAB PO PRN (12:30)
[2022-05-26 12:40] VITALS: BP 110/55
[2022-05-26 12:45] VITALS: BP 109/55
[2022-05-26 12:52] VITALS: BP 109/55
[2022-05-26 13:00] VITALS: BP 109/55
--- NOTE | 2022-05-26 14:04 | Progress Note-Post Operative ---
Post-Operative Progess Note Surgeon (s)/Iron Worker (s) Surgeon ROSEMARY RIVERA MD Iron Worker: none Pre-Operative Diagnosis retroperitoneal lymphadenopathy Post-Operative Diagnosis chronic stage 2 ext and int hemorrhoids, moderate sigmoid diverticulosis. Procedure & Operative Findings Date of Procedure 05/26/22 Procedure Performed/Findings colonoscopy Anesthesia Type mac Estimated Blood Loss Estimated blood loss (mL): minimal Specimens/Packing Specimens Removed none ROSEMARY RIVERA MD May 26, 2022 14:04
--- NOTE | 2022-05-26 14:24 | Anesthesia-General Post-Op ---
MAC Patient Condition Mental Status/LOC: Same as Preop Cardiovascular: Satisfactory Nausea/Vomiting: Absent Respiratory: Satisfactory Pain: Controlled Complications: Absent Post Op Complications Complications None Follow Up Care/Instructions Patient Instructions None needed. Anesthesiology Discharge Order Discharge Order Patient is doing well, no complaints, stable vital signs, no apparent adverse anesthesia problems. No complications reported per nursing. PATRICIO WALSH CRNA May 26, 2022 14:24
--- NOTE | 2022-05-26 14:35 | OPERATIVE REPORT ---
DATE OF SERVICE: 05/26/2022 ATTENDING PRIMARY CARE PHYSICIAN: Dr. Edson Winn. PREOPERATIVE DIAGNOSIS: Bulky retroperitoneal and mesenteric lymphadenopathy. POSTOPERATIVE DIAGNOSIS: Chronic stage II external and internal hemorrhoids, moderate sigmoid diverticulosis. No neoplasms of the colon or rectum. PROCEDURE: Colonoscopy. SURGEON: Rosemary Rivera MD. ANESTHESIA: Monitored anesthesia care. ESTIMATED BLOOD LOSS: Minimal. FINDINGS: Chronic stage II external and internal hemorrhoids, moderate sigmoid diverticulosis. No neoplasms of the colon or rectum. DISPOSITION: The patient tolerated the procedure well. INDICATIONS: The patient is an 86-year-old female who has had issues with abdominal pain. This was worked up and eventually she did get a PET CT scan, which did show significant lining up the lymph nodes of the retroperitoneum as well as the mesenteric lymph nodes. We had recently done an EGD on her for gastroesophageal reflux disease. She states that she had had a colonoscopy before; however, this was greater than 10 years ago. She does not report any major issues with diarrhea nor constipation as well as no red blood per rectum nor any dark tarry stools. She also does not report any family history of colon cancer. DESCRIPTION OF PROCEDURE: The patient was brought to the endoscopy suite, laid in left lateral decubitus position. After adequate IV pain, sedative medications and monitored anesthesia care. A digital rectal examination was performed, which revealed chronic stage II external and internal hemorrhoids, not actively edematous nor inflamed and no bleeding. Normal sphincter tone was felt and there were no palpable masses. The endoscope was then intubated to the anus and rectum gently insufflated. The endoscope was then advanced through the valves of Huang of the rectum with no polyps or any neoplasms identified. We then proceeded through the sigmoid colon where a moderate sigmoid diverticulosis was identified. The endoscope was then advanced to the remainder of the descending, transverse and ascending colon to the cecum, which were normal. There were no polyps or any neoplasms identified throughout the colon or rectum. The endoscope was then slowly withdrawn while taking a second look and suctioning of residual air with no additional findings. The patient tolerated the procedure well. Only benign issues identified of the colon and rectum and we will recommend a high fiber diet with fiber supplement, which should equal or exceed 25 g daily. She will probably need further evaluation and workup for the retroperitoneal lymphadenopathy, which may represent a lymphoma. Job ID: [id number] DocumentID: [id number] Dictated Date: 05/26/2022 12:44:06 Biochemistry Technician Date: 05/26/2022 14:35:11 Dictated By: ROSEMARY RIVERA MD
== END 2022-05-26 13:20 | disposition home or self-care (01) ==
LOC: ENDO 10:15
PROVIDERS: ATTEND Surgery
DX: K57.30 Diverticulosis of large intestine without perforation or abscess without bleeding (principal); K64.1 Second degree hemorrhoids; R59.0 Localized enlarged lymph nodes; Z90.49 Acquired absence of other specified parts of digestive tract; Z90.89 Acquired absence of other organs; Z98.890 Other specified postprocedural states

== ENCOUNTER 2022-08-13 01:30 | Inpatient (IN) | payer MEDICARE ==
[2022-08-13] VITALS (9 sets, daily range): BP systolic 117–159; BP diastolic 57–81
[~2022-08-13] VITALS: Ht 167.7 cm; Wt 97.1 kg
[2022-08-13] MEDS ORDERED: morphine INJ 10 MG/ML 1ML (SYR OR VIAL) IVP STA (01:56)
[2022-08-13] MEDS ORDERED: LACTATED RINGERS 1,000 ML IV ONE (02:00)
[2022-08-13 02:17] LABS: BASOPHILS # (AUTO) 0.1 10^3/uL (0.0-0.1); BASOPHILS % (AUTO) 1 % (0-10); EOSINOPHILS # (AUTO) 0.1 10^3/uL (0.0-0.3); EOSINOPHILS % (AUTO) 1 % (0-10); HEMATOCRIT 24 % (35-52); HEMOGLOBIN 7.4 g/dL (11.5-16.0); LYMPHOCYTES # (AUTO) 0.9 10^3/uL (1.0-4.0); LYMPHOCYTES % (AUTO) 7 % (12-44); MEAN CORPUSCULAR HEMOGLOBIN 26 pg (25-34); MEAN CORPUSCULAR HGB CONC 31 g/dL (32-36); MEAN CORPUSCULAR VOLUME 86 fL (80-99); MEAN PLATELET VOLUME 9.8 fL (9.0-12.2); MONOCYTES # (AUTO) 1.6 10^3/uL (0.0-1.0); MONOCYTES % (AUTO) 13 % (0-12); NEUTROPHILS # (AUTO) 9.7 10^3/uL (1.8-7.8); NEUTROPHILS % (AUTO) 76 % (42-75); PLATELET COUNT 420 10^3/uL (130-400); WHITE BLOOD COUNT 12.7 10^3/uL (4.3-11.0)
[2022-08-13 02:21] LABS: ALBUMIN 2.8 GM/DL (3.2-4.5); POTASSIUM 3.3 MMOL/L (3.6-5.0)
[2022-08-13 02:22] LABS: CALCIUM 9.4 MG/DL (8.5-10.1)
[2022-08-13 02:23] LABS: TOTAL PROTEIN 6.9 GM/DL (6.4-8.2)
[2022-08-13 02:25] LABS: BILIRUBIN,TOTAL 0.5 MG/DL (0.1-1.0)
[2022-08-13 02:27] LABS: CREATININE SERUM 1.34 MG/DL (0.60-1.30)
[2022-08-13 02:30] LABS: MAGNESIUM 1.8 MG/DL (1.6-2.4)
[2022-08-13 02:35] LABS: LYMPHOCYTES % (MANUAL) 4 %; METAMYELOCYTES % 1 %; MONOCYTES % (MANUAL) 5 %; MYELOCYTES % 1 %; NEUTROPHILS % (MANUAL) 89 %; PLATELET CLUMPS OCCASIONAL; POLYCHROMASIA SLIGHT; STOMATOCYTES SLIGHT
[2022-08-13 02:47] LABS: BILIRUBIN,URINE NEGATIVE (NEGATIVE); CLARITY,URINE CLEAR; COLOR,URINE YELLOW; GLUCOSE, URINE (UA) NEGATIVE (NEGATIVE); KETONES,URINE NEGATIVE (NEGATIVE); LEUKOCYTE ESTERASE ,URINE TRACE (NEGATIVE); NITRITE,URINE POSITIVE (NEGATIVE); PROTEIN,URINE TRACE (NEGATIVE)
[2022-08-13 02:56] LABS: BACTERIA,URINE LARGE /HPF; RBC,URINE 0-2 /HPF; SQUAMOUS EPITHELIAL CELL,UR 0-2 /HPF
[2022-08-13] MEDS ORDERED: cefTRIAXone 1 GM PRE-MIX 50 ML IV STA (03:13)
--- NOTE | 2022-08-13 03:18 | ED General ---
General Chief Complaint: Trauma-Non Activation Stated Complaint: FALL Nursing Triage Note: BROUGHT IN BY [facility] AFTER SLIPPING OUT OF BED X2 TONIGHT. PT C/O GENERALIZED WEAKNESS, PAIN ALL OVER. Source of Information: Patient, Family, Old Records Exam Limitations: No Limitations History of Present Illness Date Seen by Provider: Aug 13, 2022 Time Seen by Provider: 01:38 Initial Comments This 86-year-old woman presents to the emergency room via EMS accompanied by her daughter for reasons of generalized pain and weakness. Patient and daughter are the primary historians. 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 She has multiple intra-abdominal lesions according to their verbal report, but her care team has not yet been able to acquire biopsies to confirm a definitive diagnosis. Patient has been declining over the past 2 weeks. Tonight she slid out of her bed x2 and laid on the floor. She denies any new pain or any injuries associated with these events. She has a difficulty defining any focal complaints but just generally feels terrible with generalized pain and weakness. She has been noted to have significant anemia recently. They report endoscopy has been negative and she does not appear to be losing blood from a GI source. She is on Eliquis. Daughter reports a 40 pound weight loss over the past month. She takes Xanax for anxiety and shortness of breath. Her primary care provider is Maciej Eastman at [facility]. Her concessionist is Dr. Sherman. Her oncologist is Dr. Bustos. Her general surgeon is Dr. Babin. Patient requests a DO NOT RESUSCITATE status. She has had abdominal discomfort for several weeks and has persistently complained of pain under the right ribs. There has not been an acute change in this pain in recent days and it has been presumed to be related to the probable neoplastic lesions as no other cause has been identified. Allergies and Home Medications Allergies Coded Allergies: No Known Drug Allergies (Unverified , 01/23/18) Patient Home Medication List Home Medication List Reviewed: Yes ALPRAZolam (ALPRAZolam) 0.25 Mg Tablet, 0.25 MG PO Q8H PRN for ANXIETY, (Reported) Entered as Reported by: MACIEJ RICHARDS on 11/30/21 1607 Allopurinol (Allopurinol) 300 Mg Tablet, 300 MG PO DAILY, (Reported) Entered as Reported by: CLAUDY BELL on 04/26/22 1203 Amlodipine Besylate (Amlodipine Besylate) 10 Mg Tablet, 10 MG PO HS, (Reported) Entered as Reported by: LALITA SERRATO on 01/23/18 140 Apixaban (Eliquis) 5 Mg Tablet, 5 MG PO BID, (Reported) Entered as Reported by: CLAUDY BELL on 04/25/22 111 Atorvastatin Calcium (Atorvastatin Calcium) 10 Mg Tablet, 10 MG PO HS, (Reported) Entered as Reported by: LALITA SERRATO on 01/23/18 140 Carboxymethylcellulose Sodium (Refresh Tears) 0.5 % Drops, 1-2 DROPS OT UD PRN for DRY EYES, (Reported) Entered as Reported by: MACIEJ RICHARDS on 11/30/21 160 Cyanocobalamin (Cyanocobalamin Injection) 1,000 Mcg/Ml Inj, 1,000 MCG IM UD, (Reported) Entered as Reported by: CLAUDY BELL on 04/25/22 111 Doxazosin Mesylate (Doxazosin Mesylate) 4 Mg Tablet, 4 MG PO DAILY, (Reported) Entered as Reported by: MACIEJ RICHARDS on 11/30/21 160 Duloxetine HCl (Duloxetine HCl) 60 Mg Capsule.dr, 60 MG PO HS, (Reported) Entered as Reported by: LALITA SERRATO on 01/23/18 140 Famotidine (Famotidine) 20 Mg Tablet, 20 MG PO HS, (Reported) Entered as Reported by: MACIEJ RICHARDS on 11/30/21 160 Furosemide (Furosemide) 80 Mg Tablet, 80 MG PO DAILY, (Reported) Entered as Reported by: LALITA SERRATO on 01/23/18 140 Losartan/Hydrochlorothiazide (Losartan-Hctz 50-12.5 mg Tab) 50 Mg-12.5 Mg Tablet, 2 EACH PO DAILY, (Reported) Entered as Reported by: MACIEJ RICHARDS on 11/30/21 160 Pantoprazole Sodium (Pantoprazole Sodium) 40 Mg Tablet.dr, 40 MG PO BID, (Report ed) Entered as Reported by: MACIEJ RICHARDS on 11/30/21 160 Review of Systems Review of Systems Constitutional: see HPI EENTM: no symptoms reported Respiratory: see HPI Cardiovascular: no symptoms reported Gastrointestinal: see HPI Genitourinary: no symptoms reported : No Musculoskeletal: see HPI Skin: no symptoms reported Psychiatric/Neurological: See HPI Hematologic/Lymphatic: See HPI Immunological/Allergic: no symptoms reported Past Quahtgf-Ltyaar-Xztdpw Hx Patient Social History Tobacco Use?: No Substance use?: No Alcohol Use?: No Pt feels they are or have been: No Immunizations Up To Date First/Initial COVID19 Vaccinat: YES Second COVID19 Vaccination Demarcus: YES Third COVID19 Vaccination Date: YES Seasonal Allergies Seasonal Allergies: No Past Medical History Surgery/Hospitalization HX: PMH: ARTHRITIS, GERD, SIATICA, CAD, OSTEOPOROSIS, ELEVATED CHOL AND TRIGLICERIDES, BLADDER/BOWEL INC, DUMP SYNDROME, HTN, SLEEP APNEA, GASTRITIS, GOUT SX: HIATAL HERNIA REPAIR, RT HIP REPLACEMENT, HYSTERECTOMY, L KNEE REPLACED, GALLBLADDER, PACEMAKER Surgeries: Yes (R total hip, R TKR, lap hill, A&P repair, hernia repair) Abdominal (Esophageal dilatation), Appendectomy, Bladder Surgery (Cystocele r epair), Gallbladder, Hysterectomy, Joint Replacement, Orthopedic (Knees, hips), Pacemaker Respiratory: Yes Sleep Apnea Currently Using CPAP: Yes (AT HOME AT NIGHT) Cardiac: Yes (PVCS, arrhythmia) High Cholesterol, 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 Neurological: No 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 Disorders: Yes (endometriosis) Female 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 Disorders: 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 Sexually Transmitted Disease: No Genitourinary: No Gastrointestinal: Yes (REFLUX, DIVERTICULITIS gastritis, esophageal stricture) Gastroesophageal Reflux, Diverticulosis, Hiatal Hernia, Ulcer Musculoskeletal: Yes (deg joint disease, L shoulder torn rotator cuff) Osteoporosis, Arthritis, Fibromyalgia Endocrine: No HEENT: No Cancer: Yes Lymphoma Psychosocial: Yes Depression Integumentary: No Blood Disorders: No Physical Exam-Suspected Sepsis Physical Exam Vital Signs Vital Signs - First Documented 08/13/22 08/13/22 01:32 01:39 Temp 37.0 Pulse 91 Resp 18 B/P (MAP) 125/66 (85) Pulse Ox 95 O2 Delivery Room Air O2 Flow Rate 2.00 Capillary Refill : Less Than 3 Seconds Blood Pressure Mean: 85 Height, Weight, BMI Height: 5'6.00" Weight: 240lbs. 0.0oz. 108.485384zh; 37.00 BMI Method: General Appearance: WD/WN, Mild Distress, Other (Generally ill-appearing) HEENT: PERRL/EOMI, Normal ENT Inspection, Other (Oropharynx somewhat dry) Neck: Normal Inspection; No JVD Respiratory: Lungs Clear, Normal Breath Sounds, No Accessory Muscle Use, No Respiratory Distress Cardiovascular: Regular Rate, Rhythm, No Edema, No Murmur Gastrointestinal: Normal Bowel Sounds, Soft, Tenderness (Mild, generalized in the upper abdomen) Extremity: Normal Inspection, No Pedal Edema Neurologic/Psychiatric: Alert, Oriented x3, Motor Weakness (Generalized weakness) Skin: normal color, warm/dry Focused Exam Lactate Level 08/13/22 03:20: Lactic Acid Level 2.39*H Lactic Acid Level Laboratory Tests Test 08/13/22 03:20 Lactic Acid Level 2.39 MMOL/L (0.50-2.00) *H Progress/Results/Core Measures Suspected Sepsis SIRS Temperature: Pulse: 91 Respiratory Rate: 18 Laboratory Tests 08/13/22 02:01: White Blood Count 12.7H Blood Pressure 125 /66 Mean: 85 08/13/22 03:20: Lactic Acid Level 2.39*H Laboratory Tests 08/13/22 02:01: Creatinine 1.34H, INR Comment 1.7H, Platelet Count 420H, Total Bilirubin 0.5 Results/Orders Lab Results Laboratory Tests Test 08/13/22 02:01 08/13/22 02:40 08/13/22 03:20 Range/Units White Blood Count 12.7 H 4.3-11.0 10^3/uL Red Blood Count 2.82 L 3.80-5.11 10^6/uL Hemoglobin 7.4 L 11.5-16.0 g/dL Hematocrit 24 L 35-52 % Mean Corpuscular Volume 86 80-99 fL Mean Corpuscular Hemoglobin 26 25-34 pg Mean Corpuscular Hemoglobin Concent 31 L 32-36 g/dL Red Cell Distribution Width 16.2 H 10.0-14.5 % Platelet Count 420 H 130-400 10^3/uL Mean Platelet Volume 9.8 9.0-12.2 fL Immature Granulocyte % (Auto) 3 % Neutrophils (%) (Auto) 76 H 42-75 % Lymphocytes (%) (Auto) 7 L 12-44 % Monocytes (%) (Auto) 13 H 0-12 % Eosinophils (%) (Auto) 1 0-10 % Basophils (%) (Auto) 1 0-10 % Neutrophils # (Auto) 9.7 H 1.8-7.8 10^3/uL Lymphocytes # (Auto) 0.9 L 1.0-4.0 10^3/uL Monocytes # (Auto) 1.6 H 0.0-1.0 10^3/uL Eosinophils # (Auto) 0.1 0.0-0.3 10^3/uL Basophils # (Auto) 0.1 0.0-0.1 10^3/uL Immature Granulocyte # (Auto) 0.4 H 0.0-0.1 10^3/uL Neutrophils % (Manual) 89 % Lymphocytes % (Manual) 4 % Monocytes % (Manual) 5 % Metamyelocytes % 1 % Myelocytes % 1 % Clumped Platelets OCCASIONAL Polychromasia SLIGHT Stomatocytes SLIGHT Prothrombin Time 20.6 H 12.2-14.7 SEC INR Comment 1.7 H 0.8-1.4 Activated Partial Thromboplast Time 70 H 24-35 SEC Sodium Level 132 L 135-145 MMOL/L Potassium Level 3.3 L 3.6-5.0 MMOL/L Chloride Level 91 L 98-107 MMOL/L Carbon Dioxide Level 25 21-32 MMOL/L Anion Gap 16 H 5-14 MMOL/L Blood Urea Nitrogen 28 H 7-18 MG/DL Creatinine 1.34 H 0.60-1.30 MG/DL Estimat Glomerular Filtration Rate 39 BUN/Creatinine Ratio 21 Glucose Level 139 H 70-105 MG/DL Calcium Level 9.4 8.5-10.1 MG/DL Corrected Calcium 10.4 H 8.5-10.1 MG/DL Magnesium Level 1.8 1.6-2.4 MG/DL Total Bilirubin 0.5 0.1-1.0 MG/DL Aspartate Amino Transf (AST/SGOT) 33 5-34 U/L Alanine Aminotransferase (ALT/SGPT) 13 0-55 U/L Alkaline Phosphatase 136 40-136 U/L Total Creatine Kinase 14 L 29-168 U/L C-Reactive Protein High Sensitivity 35.66 H 0.00-0.50 MG/DL Total Protein 6.9 6.4-8.2 GM/DL Albumin 2.8 L 3.2-4.5 GM/DL Urine Color YELLOW Urine Clarity CLEAR Urine pH 6.0 5-9 Urine Specific [place] 1.020 1.016-1.022 Urine Protein TRACE H NEGATIVE Urine Glucose (UA) NEGATIVE NEGATIVE Urine Ketones NEGATIVE NEGATIVE Urine Nitrite POSITIVE H NEGATIVE Urine Bilirubin NEGATIVE NEGATIVE Urine Urobilinogen 0.2 < = 1.0 MG/DL Urine Leukocyte Esterase TRACE H NEGATIVE Urine RBC (Auto) TRACE-I H NEGATIVE Urine RBC 0-2 /HPF Urine WBC 5-10 H /HPF Urine Squamous Epithelial Cells 0-2 /HPF Urine Crystals NONE /LPF Urine Bacteria LARGE H /HPF Urine Casts NONE /LPF Urine Mucus NEGATIVE /LPF Urine Culture Indicated YES Lactic Acid Level 2.39 *H 0.50-2.00 MMOL/L My Orders Orders - ERMA ROD MD Ed Iv/Invasive Line Start (08/13/22 01:54) Lactated Ringers (Lr 1000 Ml Iv Solution (08/13/22 02:00) Cbc With Automated Diff (08/13/22 01:54) Comprehensive Metabolic Panel (08/13/22 01:54) Hs C Reactive Protein (08/13/22 01:54) Magnesium (08/13/22 01:54) Ua Culture If Indicated (08/13/22 01:54) Creatine Kinase (08/13/22 01:54) Morphine Injection (Morphine Injection (08/13/22 01:56) O2 (08/13/22 01:56) Code/Resuscitation (08/13/22 02:17) Manual Differential (08/13/22 02:01) Urine Culture (08/13/22 02:40) Blood Culture (08/13/22 03:13) Sputum Culture (08/13/22 03:13) Protime With Inr (08/13/22 03:13) Partial Thromboplastin Time (08/13/22 03:13) Chest 1 View, Ap/Pa Only (08/13/22 03:13) Vital Signs Adult Sepsis Patie Q15M (08/13/22 03:13) Remove Rings In Anticipation O (08/13/22 03:13) Lactic Acid Analyzer (08/13/22 03:13) Ceftriaxone 1 Gm Pre-Mix (Rocephin 1 Gm (08/13/22 03:13) Medications Given in ED Current Medications Medications Dose Ordered Sig/Bulmaro Route Start Time Stop Time Status Last Admin Dose Admin Lactated Ringer's 1,000 ml @ 0 mls/hr Q0M ONCE IV 08/13/22 02:00 08/13/22 02:01 DC 08/13/22 02:05 0 MLS/HR Vital Signs/I&O 08/13/22 08/13/22 08/13/22 08/13/22 01:32 01:39 02:05 03:47 Temp 37.0 37.0 37.0 Pulse 91 82 Resp 18 18 B/P (MAP) 125/66 (85) 130/52 Pulse Ox 95 96 95 O2 Delivery Room Air Nasal Cannula Nasal Cannula O2 Flow Rate 2.00 2.00 08/13/22 08/13/22 04:10 04:21 Temp 37.7 Pulse 78 Resp 24 B/P (MAP) 117/57 (77) Pulse Ox 91 94 O2 Delivery Nasal Cannula Nasal Cannula O2 Flow Rate 4.00 4.00 Capillary Refill : Less Than 3 Seconds Blood Pressure Mean: 85 Progress Note : Progress Note Patient was interviewed and examined. Her daughter Chikis was also interviewed. Patient was found to have elevated WBC and CRP in the context of urinary tract infection. She also had a heart rate of 91 and therefore technically met criteria for SIRS. Blood cultures and lactic acid were obtained. Patient's creatinine was mildly elevated from baseline likely reflecting hydration status as she has not been drinking much recently. BUN was also elevated. Additional review of CBC and CMP revealed significant anemia, worsening from prior. She did not yet meet criteria for transfusion. She was noted to have mild hypokalemia. Patient was initially treated with Rocephin for suspected sepsis from UTI. A liter of LR was infused. Pain was treated with morphine 2 mg which was effective. Patient has multiple issues warranting admission including her generalized weakness with falls, hypokalemia, possible sepsis from UTI, g eneralized pain, acute kidney injury from decreased fluid intake, etc. Case was discussed with Dr. Lui. I suspect she will require at least 2 midnights to monitor and manage these issues. Repeat labs were ordered for 0800. CODE STATUS was discussed with patient and her daughter. Patient elects a DNR status. Diagnostic Imaging Diagonstic Imaging: Xray Plain Films/CT/US/NM/MRI: chest Comments Single view chest x-ray viewed by me and compared with prior. Radiologist report not yet available. No acute changes from prior were appreciated. Departure Communication (Admissions) Time/Spoke to Admitting Phy: 03:30 Dr. Lui Impression Primary Impression: Sepsis Qualified Codes: A41.9 - Sepsis, unspecified organism Additional Impressions: Urinary tract infection Qualified Codes: N39.0 - Urinary tract infection, site not specified Anemia Qualified Codes: D64.9 - Anemia, unspecified Generalized weakness Lymphoma Qualified Codes: C85.90 - Non-Hodgkin lymphoma, unspecified, unspecified site Disposition: 09 ADMITTED INPATIENT Condition: Improved Admissions Decision to Admit Reason: Admit from ER (General) Decision to Admit/Date: Aug 13, 2022 Time/Decision to Admit Time: 03:30 Departure-Patient Inst. Decision time for Depature: 03:30 Referrals: MACIEJ EASTMAN DO (PCP/Family) Primary Care Physician Copy Copies To 1: MACIEJ EASTMAN JOSHUA T MD Aug 13, 2022 03:18
[2022-08-13 03:26] LABS: INR 1.7 (0.8-1.4); PROTHROMBIN TIME PATIENT 20.6 SEC (12.2-14.7)
--- NOTE | 2022-08-13 04:01 | Diagnostic Imaging Report ---
CHEST 1 VIEW, AP/PA ONLY Indication: Sepsis Comparison: 12/31/2021 Findings: No focal airspace disease in the visualized lungs. No pleural effusion or pneumothorax. Stable cardiomegaly with left pectoral transvenous pacemaker. Impression: 1. No acute cardiopulmonary process by portable radiography. Dictated by: Dictated on workstation # [id number]
[2022-08-13] MEDS ORDERED: D5 1/2 NS W/KCL 20 MEQ/L 1,000 ML IV ONE (04:43)
[2022-08-13] MEDS ORDERED: ONDANSETRON 4 MG/2 ML (SDV) Z0FRAN IV PRN ×2 (05:15→07:30)
[2022-08-13] MEDS ORDERED: D5 1/2 NS W/KCL 20 MEQ/L 1,000 ML IV SCH (05:15)
--- NOTE | 2022-08-13 07:07 | History & Physical-Hospitalist ---
History of Present Illness HPI/Chief Complaint Chief complaint: Fall with weakness HPI: This is an 86-year-old female who was just recently diagnosed with lymphoma that showed significant progression and 40 pound weight loss recently fell last night and was too weak to get up. She was diagnosed with UTI and placed on inpatient status due to severity of her weakness. She remains DNR due to progressive lymphoma. I did reconcile her home medication. Patient has no pain. Spoke to Dr Winn: PET scan reveals lymph nodes are periaortic so not accessible for biopsy. Dr Babin has performed the scopes recently and no source for bleed. Video swallow study due to small bowel abnl on PET scan but nothing confirmatory. Source: patient, family Exam Limitations: no limitations Date Seen 08/13/22 Time Seen by a Provider: 10:00 Attending Physician Edson Winn DO PCP Admitting Physician: Koki Johnson DO Attending Physician: Koki Johnson DO Referring Physician Date of Admission Aug 13, 2022 at 03:30 Home Medications & Allergies Home Medications Reviewed patient Home Medication Reconciliation performed by pharmacy medication reconciliations dental laboratory technician and/or nursing. Patients Allergies have been reviewed. Allergies Allergies Coded Allergies No Known Drug Allergies (Unverified01/23/18) Past Amjhlvd-Edsqdx-Qlzlxm Hx Patient Social History Tobacco Use?: No Smoking Status: Never a Smoker Use of E-Cig and/or Vaping dev: No Substance use?: No Alcohol Use?: No Pt feels they are or have been: No Immunizations Up To Date Date of Influenza Vaccine: Jun 13, 2022 First/Initial COVID19 Vaccinat: YES Second COVID19 Vaccination Demarcus: YES Tetanus Booster (TDap): Unknown Date of Pneumonia Vaccine: Feb 17, 2010 Seasonal Allergies Seasonal Allergies: No Current Status status: No status: No Advance Directives: Yes Advance Directive Location: Copy from prev record Communicates: Verbally Primary Language: [place] Preferred Spoken Language: [place] Is interpretation needed?: No Sensory deficits: Vision impairment, Hearing impairment Implanted or Applied Medical D: CPAP, Orthopedic hardware, Pacemaker Past Medical History Surgeries: Abdominal (Esophageal dilatation), Appendectomy, Bladder Surgery (Cystocele repair), Gallbladder, Hysterectomy, Joint Replacement, Orthopedic (Knees, hips), Pacemaker Sleep Apnea Currently Using CPAP: Yes (AT HOME AT NIGHT) High Cholesterol, 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 Sexually Transmitted Disease: No Gastroesophageal Reflux, Diverticulosis, Hiatal Hernia, Ulcer Osteoporosis, Arthritis, Fibromyalgia Lymphoma Depression Blood Disorders: No Review of Systems Constitutional: see HPI EENTM: no symptoms reported Respiratory: no symptoms reported Cardiovascular: no symptoms reported Genitourinary: no symptoms reported Musculoskeletal: no symptoms reported Skin: no symptoms reported Psychiatric/Neurological: Depressed All Other Systems Reviewed Negative Unless Noted: Yes Physical Exam Physical Exam Vital Signs Vital Signs - First Documented 08/13/22 08/13/22 01:32 01:39 Temp 37.0 Pulse 91 Resp 18 B/P (MAP) 125/66 (85) Pulse Ox 95 O2 Delivery Room Air O2 Flow Rate 2.00 Capillary Refill : Less Than 3 Seconds Height, Weight, BMI Height: 5'6.00" Weight: 240lbs. 0.0oz. 108.081869on; 34.52 BMI Method: General Appearance: No Apparent Distress, Chronically ill, Obese Eyes: Right Eye Normal Inspection, Right Eye PERRL HEENT: PERRL/EOMI, Normal ENT Inspection, Pharynx Normal, Moist Mucous Membranes Neck: Full Range of Motion, Normal Inspection, Non Tender Respiratory: Chest Non Tender, Lungs Clear, Normal Breath Sounds, No Accessory Muscle Use, No Respiratory Distress Cardiovascular: Regular Rate, Rhythm, No Edema, No Gallop, No JVD, No Murmur, Normal Peripheral Pulses Gastrointestinal: Normal Bowel Sounds, No Organomegaly, No Pulsatile Mass, Non Tender, Soft Back: Normal Inspection, No CVA Tenderness, No Vertebral Tenderness Extremity: Normal Capillary Refill, Normal Inspection, Normal Range of Motion, Non Tender, No Calf Tenderness, No Pedal Edema Neurologic/Psychiatric: Alert, Oriented x3, No Motor/Sensory Deficits, Normal Mood/Affect, manager simulation II-XII Norm as Tested, Depressed Affect, Motor Weakness (Generalized) Skin: Normal Color, Warm/Dry Lymphatic: No Adenopathy Results Results/Procedures Labs Laboratory Tests 08/13/22 02:01 08/13/22 08:16 Patient resulted labs reviewed. 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 with hematoma complication following Plan: Supportive [facility] meds Eliquis stop due to anemia and PCP already discussed this with the patient and family Transfuse HLIVF Consult Dr Sherman Admission Status: Inpatient Order (span 2 midnights) Reason for Inpatient Admission: Follow-up with UTI lymphoma Diagnosis/Problems Diagnosis/Problems (1) Generalized weakness Status: Acute (2) Urinary tract infection Status: Acute Qualifiers: Urinary tract infection type: site unspecified Hematuria presence: without hematuria Qualified Codes: N39.0 - Urinary tract infection, site not specified (3) GRECIA (acute kidney injury) (4) Sepsis Status: Acute Qualifiers: Sepsis type: sepsis due to unspecified organism Sepsis acute organ dysfunction status: unspecified Qualified Codes: A41.9 - Sepsis, unspecified organism (5) Lymphoma (6) Pacemaker (7) Weight loss KOKI JOHNSON DO Aug 13, 2022 07:07
[2022-08-13] MEDS ORDERED: MILK OF MAGNESIA 400 MG/5 ML 30 ML UDC PO PRN (07:30)
[2022-08-13] MEDS ORDERED: HYDROmorphone 2 MG/ML VIAL (DILAUDID) IV PRN (07:30)
[2022-08-13] MEDS ORDERED: ANTACID SUSP 30 ML UDC (MYLANTA) PO PRN (07:30)
[2022-08-13] MEDS ORDERED: BISACODYL 10 MG SUPP (DULCOLAX) PR PRN (07:30)
[2022-08-13] MEDS ORDERED: CALCIUM CARBONATE 500 MG (TUMS) TAB.CHEW PO PRN (07:30)
[2022-08-13] MEDS ORDERED: ENOXAPARIN 40 MG/0.4 ML (LOVENOX) SYR SC SCH (07:30)
[2022-08-13] MEDS ORDERED: diphenhydrAMINE 50 MG/ML INJ (BENADRYL) IVP PRN (07:30)
[2022-08-13] MEDS ORDERED: MELATONIN 3 MG TABLET PO PRN (07:30)
[2022-08-13] MEDS ORDERED: polyethylene glycoL POWDER 17 GM (MIRALAX) PACK PO PRN (07:30)
[2022-08-13] MEDS ORDERED: diphenhydrAMINE 25 MG TAB (BENADRYL) PO PRN (07:30)
[2022-08-13] MEDS ORDERED: LACTULOSE SYRUP 10GM/15ML (ENULOSE) 30ML UDC PO PRN (07:30)
[2022-08-13] MEDS ORDERED: ONDANSETRON 4 MG (ZOFRAN) ORAL DISSOLVE TAB PO PRN (07:30)
[2022-08-13] MEDS ORDERED: ACETAMINOPHEN 325 MG TABLET PO PRN (07:30)
[2022-08-13] MEDS: DOCUSATE SODIUM 100 MG (COLACE) CAP PO SCH ×2 (08:18→20:35)
[2022-08-13 08:25] LABS: BASOPHILS # (AUTO) 0.1 10^3/uL (0.0-0.1); BASOPHILS % (AUTO) 1 % (0-10); EOSINOPHILS # (AUTO) 0.1 10^3/uL (0.0-0.3); EOSINOPHILS % (AUTO) 1 % (0-10); HEMATOCRIT 25 % (35-52); HEMOGLOBIN 7.7 g/dL (11.5-16.0); LYMPHOCYTES # (AUTO) 1.3 10^3/uL (1.0-4.0); LYMPHOCYTES % (AUTO) 10 % (12-44); MEAN CORPUSCULAR HEMOGLOBIN 27 pg (25-34); MEAN CORPUSCULAR HGB CONC 31 g/dL (32-36); MEAN CORPUSCULAR VOLUME 88 fL (80-99); MEAN PLATELET VOLUME 10.6 fL (9.0-12.2); MONOCYTES # (AUTO) 1.5 10^3/uL (0.0-1.0); MONOCYTES % (AUTO) 11 % (0-12); NEUTROPHILS # (AUTO) 10.1 10^3/uL (1.8-7.8); NEUTROPHILS % (AUTO) 75 % (42-75); PLATELET COUNT 406 10^3/uL (130-400); WHITE BLOOD COUNT 13.4 10^3/uL (4.3-11.0)
[2022-08-13 08:37] LABS: POTASSIUM 3.7 MMOL/L (3.6-5.0)
[2022-08-13 08:38] LABS: CALCIUM 9.5 MG/DL (8.5-10.1)
[2022-08-13 08:42] LABS: CREATININE SERUM 1.2 MG/DL (0.60-1.30)
[2022-08-13 08:45] LABS: URIC ACID 5.2 MG/DL (2.6-7.2)
[2022-08-13] MEDS ORDERED: POTA-51 PO (09:21)
[2022-08-13] MEDS ORDERED: ACET-2267 PO (09:21)
[2022-08-13] MEDS ORDERED: OMEP40CA6 PO (09:21)
[2022-08-13] MEDS ORDERED: SUCR1TAB PO (09:21)
[2022-08-13] MEDS ORDERED: ALPR0.254 PO (09:21)
[2022-08-13] MEDS ORDERED: LOSA50TA2 PO (09:21)
[2022-08-13] MEDS ORDERED: AMLO-250 PO (09:21)
[2022-08-13] MEDS ORDERED: DICL20GE TP (09:21)
[2022-08-13] MEDS ORDERED: FURO40TA4 PO (09:21)
[2022-08-13] MEDS ORDERED: ONDA8TAB13 SL (09:21)
[2022-08-13] MEDS: SENNOSIDES 8.6 MG (SENOKOT) TAB PO SCH ×2 (09:34→20:34)
[2022-08-13] MEDS ORDERED: CYANOCOBALAMIN INJ 1000 MCG/ML IM SCH (11:00)
[2022-08-13] MEDS ORDERED: ARTIFICAL TEARS 0.4 ML UNIT DOSE (REFRESH PLUS) OU PRN (11:30)
[2022-08-13] MEDS ORDERED: NS IV 500 ML 500 ML IV SCH ×2 (12:00)
[2022-08-13] MEDS: ALPRAZolam 0.25 MG (XANAX) TAB PO PRN ×2 (12:24→20:34)
[2022-08-13] MEDS: morphine INJ 4 MG/ML 1 ML (VIAL/SYRINGE) IV PRN ×3 (14:23→20:34)
--- NOTE | 2022-08-13 15:39 | Consultation-Cardiology ---
HPI-Cardiology Cardiology Consultation: Date of Consultation 08/13/22 Time Seen by a Provider: 14:45 Date of Admission Attending Physician Maciej Winn DO Admitting Physician Admitting Physician: Koki Lui DO Attending Physician: Koki Lui DO Consulting Physician ROMAN TORRES MD, MA, FACP, FACC, FSCAI, CCDS Physician requesting consult: Dr Lui HPI: Chief Complaint: Gen weakness 86 yo woman with multiple comorbidities who has recently been diagnosed with lymphoma and has had progressive wgt loss of 30-40 lbs in the last 4 - 6 months. She has become increasingly weak. Last nigh, she fell twice while trying to get out of the bed. Notes gen malaise and tires easily. Both legs have been very w eak. Denies cp or palp or sarah syncope Review of Systems-Cardiology Review of Systems Constitutional: As described under HPI Eyes: No vision change Ears/Nose/Throat: chronic hearing loss; No ear discharge, No nasal drainage, No recent hearing loss Respiratory: As described under HPI Cardiovascular: As described under HPI Gastrointestinal: No diarrhea, No nausea; poor appetite; No vomiting Genitourinary: No dysuria, No hematuria : No Musculoskeletal: back pain (chronic) Skin: No rash, No ulcerations Psychiatric/Neurological: No seizure, No focal weakness, No syncope Hematologic: No bleeding abnormalities All Other Systems Reviewed Negative Unless Noted: Yes NLH-Swedqz-Rxotow Hx Patient Social History Smoking Status: Never a Smoker 2nd Hand Smoke Exposure: No Have you traveled recently?: No Alcohol Use?: No Pt feels they are or have been: No Immunizations Up To Date Date of Pneumonia Vaccine: Feb 17, 2010 Date of Influenza Vaccine: Jun 13, 2022 Past Medical History PMH As described under Assessment. Family Medical History Family Medical History: Does not report fam h/o early CAD Allergies and Home Medications Allergies Coded Allergies: No Known Drug Allergies (Unverified , 01/23/18) Patient Home Medication List Home Medication List Reviewed: Yes ALPRAZolam (ALPRAZolam) 0.25 Mg Tablet, 0.25 MG PO Q8H PRN for ANXIETY, (Reported) Entered as Reported by: MACIEJ RICHARDS on 11/30/21 1607 Last Action: Continued ALPRAZolam (ALPRAZolam) 0.25 Mg Tablet, 0.25 MG PO BID, (Reported) Entered as Reported by: ERVIN OCONNOR on 08/13/22920 Last Action: New Order Acetaminophen (Tylenol Extra Strength) 500 Mg Tablet, 500 MG PO PRN, (Reported) Entered as Reported by: ERVIN OCONNOR on 08/13/22920 Last Action: New Order Allopurinol (Allopurinol) 300 Mg Tablet, 300 MG PO DAILY, (Reported) Entered as Reported by: CLAUDY BELL on 04/26/22 1203 Last Action: Continued Amlodipine Besylate (Amlodipine Besylate) 5 Mg Tablet, 5 MG PO HS, (Reported) Entered as Reported by: ERVIN OCONNOR on 08/13/22920 Last Action: New Order Apixaban (Eliquis) 5 Mg Tablet, 5 MG PO BID, (Reported) Entered as Reported by: CLAUDY BELL on 04/25/221117 Last Action: Continued Carboxymethylcellulose Sodium (Refresh Tears) 0.5 % Drops, 1-2 DROPS OT UD PRN for DRY EYES, (Reported) Entered as Reported by: MACIEJ RICHARDS on 11/30/21 1607 Last Action: Converted Cyanocobalamin (Cyanocobalamin Injection) 1,000 Mcg/Ml Inj, 1,000 MCG IM UD, (Reported) Entered as Reported by: CLAUDY BELL on 04/25/221117 Last Action: Continued Diclofenac Sodium (Voltaren Arthritis Pain) 1 % Gel..gram., 20 GM TP PRN, (Reported) Entered as Reported by: ERVIN OCONNOR on 08/13/22920 Last Action: New Order Duloxetine HCl (Duloxetine HCl) 60 Mg Capsule.dr, 60 MG PO HS, (Reported) Entered as Reported by: LALITA SERRATO on 01/23/18 1401 Last Action: Converted Furosemide (Furosemide) 40 Mg Tablet, 40 MG PO DAILY, (Reported) Entered as Reported by: ERVIN OCONNOR on 08/13/22920 Last Action: New Order Losartan Potassium (Cozaar) 50 Mg Tablet, 50 MG PO DAILY, (Reported) Entered as Reported by: ERVIN OCONNOR on 08/13/22920 Last Action: New Order Omeprazole (Omeprazole) 40 Mg Capsule.dr, 40 MG PO DAILY, (Reported) Entered as Reported by: ERVIN OCONNOR on 08/13/22920 Last Action: New Order Ondansetron (Ondansetron Odt) 8 Mg Tab.rapdis, 8 MG SL Q4H PRN for NAUSEA/VOMITING, (Reported) Entered as Reported by: ERVIN OCONNOR on 08/13/22920 Last Action: New Order Potassium Chloride (Potassium Chloride) 20 Meq Tablet.er, (Reported) Entered as Reported by: ERVIN OCONNOR on 08/13/22920 Last Action: New Order Sucralfate (Sucralfate) 1 Gram Tablet, (Reported) Entered as Reported by: ERVIN OCONNOR on 08/13/22920 Last Action: New Order Discontinued Medications Amlodipine Besylate (Amlodipine Besylate) 10 Mg Tablet, 10 MG PO HS, (Reported) Discontinued Reason: No Longer Taking Entered as Reported by: LALITA SERRATO on 01/23/181400 Last Action: Discontinued Atorvastatin Calcium (Atorvastatin Calcium) 10 Mg Tablet, 10 MG PO HS, (Reported) Discontinued Reason: No Longer Taking Entered as Reported by: LALITA SERRATO on 01/23/181400 Last Action: Discontinued Doxazosin Mesylate (Doxazosin Mesylate) 4 Mg Tablet, 4 MG PO DAILY, (Reported) Discontinued Reason: No Longer Taking Entered as Reported by: MACIEJ RICHARDS on 11/30/211606 Last Action: Discontinued Famotidine (Famotidine) 20 Mg Tablet, 20 MG PO HS, (Reported) Discontinued Reason: No Longer Taking Entered as Reported by: MACIEJ RICHARDS on 11/30/211606 Last Action: Discontinued Furosemide (Furosemide) 80 Mg Tablet, 80 MG PO DAILY, (Reported) Discontinued Reason: No Longer Taking Entered as Reported by: LALITA SERRATO on 01/23/181400 Last Action: Discontinued Losartan/Hydrochlorothiazide (Losartan-Hctz 50-12.5 mg Tab) 50 Mg-12.5 Mg Tablet, 2 EACH PO DAILY, (Reported) Discontinued Reason: No Longer Taking Entered as Reported by: MACIEJ RICHARDS on 11/30/211606 Last Action: Discontinued Pantoprazole Sodium (Pantoprazole Sodium) 40 Mg Tablet.dr, 40 MG PO BID, (Reported) Discontinued Reason: No Longer Taking Entered as Reported by: MACIEJ RICHARDS on 5/4/22 1607 Last Action: Discontinued Physical Exam-Cardiology Physical Exam Vital Signs/I&O 08/13/22 08/13/22 08/13/22 08/13/22 03:47 04:10 04:21 06:39 Temp 37.0 37.7 Pulse 82 78 Resp 18 24 B/P (MAP) 130/52 117/57 (77) Pulse Ox 95 91 94 O2 Delivery Nasal Cannula Nasal Cannula Nasal Cannula Nasal Cannula O2 Flow Rate 2.00 4.00 4.00 4.00 08/13/22 08/13/22 08/13/22 08/13/22 07:14 12:05 15:21 15:29 Temp 36.5 36.3 37.4 37.4 Pulse 76 73 87 87 Resp 18 19 17 17 B/P (MAP) 144/75 (98) 155/66 (95) 154/73 154/73 (100) Pulse Ox 93 94 97 91 O2 Delivery Nasal Cannula Nasal Cannula Nasal Cannula Nasal Cannula O2 Flow Rate 4.00 4.00 4.00 4.00 Capillary Refill : Less Than 3 Seconds Constitutional: AAO x 3, well-developed, well-nourished HEENT: EOMI; No xanthelasmas are seen Neck: carotid pulses are 2 + bilaterally, with good upstrokes Respiratory: No accessory muscle use; other (good, bilateral air entry) Cardiovascular: regular rate-rhythm, S1 and S2, systolic murmur (soft TAYE at card base) Gastrointestinal: No tender; soft; No guarding, No rebound; audible bowel sounds Extremities: No clubbing, No cyanosis, No significant edema Neurologic/Psychiatric: oriented x 3, other (moves all limbs equally) Skin: normal color, warm/dry; No rash on exposed areas, No ulcerations on exposed areas Data Review Labs Laboratory Tests 08/13/22 02:01: White Blood Count 12.7H, Red Blood Count 2.82L, Hemoglobin 7.4L, Hematocrit 24L, Mean Corpuscular Volume 86, Mean Corpuscular Hemoglobin 26, Mean Corpuscular Hemoglobin Concent 31L, Red Cell Distribution Width 16.2H, Platelet Count 420H, Mean Platelet Volume 9.8, Immature Granulocyte % (Auto) 3, Neutrophils (%) (Auto) 76H, Lymphocytes (%) (Auto) 7L, Monocytes (%) (Auto) 13H, Eosinophils (%) (Auto) 1, Basophils (%) (Auto) 1, Neutrophils # (Auto) 9.7H, Lymphocytes # (Auto) 0.9L, Monocytes # (Auto) 1.6H, Eosinophils # (Auto) 0.1, Basophils # (Auto) 0.1, Immature Granulocyte # (Auto) 0.4H, Neutrophils % (Manual) 89, Lymphocytes % (Manual) 4, Monocytes % (Manual) 5, Metamyelocytes % 1, Myelocytes % 1, Clumped Platelets OCCASIONAL, Polychromasia SLIGHT, Stomatocytes SLIGHT, Prothrombin Time 20.6H, INR Comment 1.7H, Activated Partial Thromboplast Time 70H, Sodium Level 132L, Potassium Level 3.3L, Chloride Level 91L, Carbon Dioxide Level 25, Anion Gap 16H, Blood Urea Nitrogen 28H, Creatinine 1.34H, Estimat Glomerular Filtration Rate 39, BUN/Creatinine Ratio 21, Glucose Level 139H, Calcium Level 9.4, Corrected Calcium 10.4H, Magnesium Level 1.8, Total Bilirubin 0.5, Aspartate Amino Transf (AST/SGOT) 33, Alanine Aminotransferase (ALT/SGPT) 13, Alkaline Phosphatase 136, Total Creatine Kinase 14L, C-Reactive Protein High Sensitivity 35.66H, Total Protein 6.9, Albumin 2.8L 08/13/22 02:40: Urine Color YELLOW, Urine Clarity CLEAR, Urine pH 6.0, Urine Specific [place] 1.020, Urine Protein TRACEH, Urine Glucose (UA) NEGATIVE, Urine Ketones NEGATIVE, Urine Nitrite POSITIVEH, Urine Bilirubin NEGATIVE, Urine Urobilinogen 0.2, Urine Leukocyte Esterase TRACEH, Urine RBC (Auto) TRACE-IH, Urine RBC 0-2, Urine WBC 5-10H, Urine Squamous Epithelial Cells 0-2, Urine Crystals NONE, Urine Bacteria LARGEH, Urine Casts NONE, Urine Mucus NEGATIVE, Urine Culture Indicated YES 08/13/22 03:20: Lactic Acid Level 2.39*H 08/13/22 08:16: White Blood Count 13.4H, Red Blood Count 2.88L, Hemoglobin 7.7L, Hematocrit 25L, Mean Corpuscular Volume 88, Mean Corpuscular Hemoglobin 27, Mean Corpuscular Hemoglobin Concent 31L, Red Cell Distribution Width 16.3H, Platelet Count 406H, Mean Platelet Volume 10.6, Immature Granulocyte % (Auto) 3, Neutrophils (%) (Auto) 75, Lymphocytes (%) (Auto) 10L, Monocytes (%) (Auto) 11, Eosinophils (%) (Auto) 1, Basophils (%) (Auto) 1, Neutrophils # (Auto) 10.1H, Lymphocytes # (Auto) 1.3, Monocytes # (Auto) 1.5H, Eosinophils # (Auto) 0.1, Basophils # (Auto) 0.1, Immature Granulocyte # (Auto) 0.4H, Sodium Level 130L, Potassium Level 3.7, Chloride Level 92L, Carbon Dioxide Level 23, Anion Gap 15H, Blood Urea Nitrogen 25H, Creatinine 1.20, Estimat Glomerular Filtration Rate 44, BUN/Creatinine Ratio 21, Glucose Level 128H, Calcium Level 9.5, Lactic Acid Level 2.35*H, Uric Acid 5.2, Lactate Dehydrogenase 351H 08/13/22 10:36: Lactic Acid Level 2.67*H 08/13/22 12:46: Lactic Acid Level 2.50*H 08/13/22 12:51: Laboratory Tests 08/13/22 02:01 08/13/22 08:16 A/P-Cardiology Assessment/Admission Diagnosis Profound gen weakness - likely related to multiple comorbidities noted below Recently diagnosed lymphoma (late 2021) - managed by Dr Bustos Marked anemia - managed by pcp andn Dr Bustos - [place] [facility] [place] Extreme fatigue and marked shortness of breath of new onset 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 Normal right heart pressures and normal global left ventricular systolic function with an ejection fraction of 55% per cardiac catheterization of September 2011. - Echocardiogram from 04-14-22 showed LVEF 50-55%; LA mildly dilated; Mild AoR. PASP 35-40 mmHg - MPI 04-25-22: The study is indicative of a small to moderate sized apical infarction without significant ischemia. Apical akinesis. Well preserved global left ventricular systolic function with a calculated ejection fraction of 59%. 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 - No evidence of significant renal artery stenosis on CT angiography of June 2005. Hyperlipidemia - being treated with atorvastatin which is followed by Dr. Hurst Impaired fasting glucose - managed by pcp Fibromyalgia and chronic backache and degenerative joint disease and fatigue. Ortho - Status post laparoscopic surgery on the left knee. - History of hip replacement surgery. - S/P left knee replacement in Mar 2019 Gastroesophageal reflux. - managed by PCP Abnormal ECG - Chronic early repolarization on surface electrocardiography. - ECG on 12/26/17: NSR with isolated PVCs, baseline artifact Carotid dz - Mild carotid arterial disease on ultrasonography of 11-18-20 Sleep apnea - for which she is on CPAP tx CKD 3b Discussion and Recomendations * Complex management due to multiple comorbidities * Purely from a cardiac standpoint, OAC is indicated. Please resume when OK from the standpoint of Med and Heme/Onc svces * Continue anti-htn regimen * Monitor labs * I discussed her CV issues with her and her son who was by her bedside ROMAN TORRES MD FACP FACC CCDS Aug 13, 2022 15:39
--- NOTE | 2022-08-13 15:51 | CONSULTATION REPORT ---
The patient is admitted to room 315. PHYSICAL REQUESTING CONSULTATION: Koki Lui DO PRIMARY PHYSICIAN: CHRIS Winn. IMPRESSION: 1. An 86-year-old female admitted to the hospital with increasing shortness of breath, fatigue and abdominal pain. 2. Previous history of an abnormal PET scan showing retroperitoneal lymphadenopathy as well as a small bowel lesion. Unable to obtain biopsies because of location. The patient completed a capsule endoscopy with a small bowel lesion. 3. Significant and symptomatic anemia. The patient has coronary artery disease and would maintain hemoglobin more than 8 g/dL. 4. Hypercalcemia with corrected calcium 10.4 g/dL. RECOMMENDATIONS: 1. Type and cross and transfuse 1 unit of PRBC today because of the shortness of breath and fatigue. 2. Obtain a CT scan of the abdomen and pelvis in a.m. to further evaluate the abdominal lymphadenopathy. 3. Pain control with morphine 2 mg IV every 4 hours as needed. 4. Based on the CT scan results, we will discuss about a biopsy by the least invasive approach. 5. Also discussed the option of symptomatic treatment with pain control and correction of anemia. The patient wanted time to think about the options and we will discuss this again tomorrow. BRIEF HISTORY: The patient is an 86-year-old female who has not been feeling well for 6-12 months. Eventually, she went to her primary physician in mid 2021 with worsening abdominal pain and fatigue. She had CT scans, which showed retroperitoneal lymphadenopathy and completed a PET/CT scan in late 04/2022. This showed FDG avid lymphadenopathy in the retroperitoneum as well as a small bowel lesion. None of the lesions were easily accessible for needle biopsy. She completed a capsule endoscopy with a small abnormal lesion noted in the small bowel. Over the past few weeks, she continued to have worsening fatigue and shortness of breath. She slipped and had a slight fall at home yesterday with increased back pain and was brought in to the emergency room and admitted to the hospital for further evaluation and management. Oncology consultation was requested because of the possibility of her malignancy. PAST MEDICAL HISTORY: Significant for coronary artery disease with a possible UT in the past. She follows regularly with Dr. Sherman. She has history of hiatal hernia and underwent a Aden fundoplication. She has required dilatation of this area a few months ago. She has a history of gastroesophageal reflux disease, prior to the Aden fundoplication. Hypercholesterolemia, osteoporosis, osteoarthritis, hypertension, sleep apnea, gout. PAST SURGICAL HISTORY: Include a Aden fundoplication, right hip replacement, hysterectomy, left knee replacement, cholecystectomy as well as a pacemaker insertion, appendectomy, cystocele repair. SOCIAL HISTORY: The patient is and lives in [place], [place], she has two children, a son and a daughter, both of whom live close by. No tobacco, alcohol, or recreational drug use. PHYSICAL EXAMINATION: GENERAL: Today showed an elderly female, moderately obese, weak appearing, awake and answering questions appropriately, slightly hard of hearing. HEENT: Normocephalic, extraocular muscles intact, conjunctivae pale, oral mucosa dry. NECK: Supple, with no JVD. No cervical, supraclavicular or axillary lymphadenopathy palpable. CHEST: Symmetrical. LUNGS: Fairly clear to auscultation without wheezes or rales. CARDIAC: Regular in rate and rhythm. No murmurs or gallops heard. ABDOMEN: Obese, soft, tender in the epigastric area without guarding or rebound. No definite hepatosplenomegaly or other masses palpable. EXTREMITIES: Showed no edema. NEUROLOGIC: Showed motor strength 4/5 bilaterally. No focal motor deficits noted. CBC done this morning showed white count of 13.4, hemoglobin 7.7, platelet count of 406,000 with neutrophil count 10.1, lymphocyte count 1.3 and monocyte count 1.5. BMP done today showed sodium level of 130. BUN was 25 and creatinine 1.2 with GFR 44 mL per minute. Glucose was 128. Serum LDH level was elevated at 351. Liver function studies done yesterday. This mostly within normal limits. Corrected calcium was elevated at 10.4. Albumin level was below normal at 2.8. Urinalysis showed nitrites positive, leukocyte esterase trace, and large amount of bacteria with urine WBC 5-10 per high power field. Culture is pending. Chest x-ray done at the time of admission showed no acute cardiopulmonary process. Thank you for allowing me to participate in this patient's care. I will follow the patient with you and make appropriate recommendations. CC: Dr. Edson Winn ? requested, unable to deliver Job ID: [id number] DocumentID: [id number] Dictated Date: 08/13/2022 14:25:02 [employer] Date: 08/13/2022 15:50:00 Dictated By: ABEL ARANGO MD
[2022-08-13] MEDS: PANTOPRAZOLE 40 MG (PROTONIX) VIAL IV SCH (20:34)
[2022-08-13] MEDS: DULoxetine 30 MG (CYMBALTA) CAP PO SCH (20:35)
[2022-08-13] MEDS ORDERED: APIXABAN 5 MG (ELIQUIS) TABLET PO SCH (21:00)
[2022-08-13] MEDS: NS IV 1000 ML 1,000 ML IV SCH (21:47)
[2022-08-14] MEDS: NS IV 1000 ML 1,000 ML IV SCH ×2 (00:25→05:26)
[2022-08-14] MEDS: cefTRIAXone 1 GM IV (PRE-MIX) 50 ML IV SCH (03:06)
[2022-08-14 03:59] VITALS: BP 135/67
[2022-08-14 06:35] LABS: BASOPHILS # (AUTO) 0.1 10^3/uL (0.0-0.1); BASOPHILS % (AUTO) 1 % (0-10); EOSINOPHILS # (AUTO) 0.4 10^3/uL (0.0-0.3); EOSINOPHILS % (AUTO) 3 % (0-10); HEMATOCRIT 29 % (35-52); HEMOGLOBIN 8.9 g/dL (11.5-16.0); LYMPHOCYTES % (AUTO) 8 % (12-44); MEAN CORPUSCULAR HEMOGLOBIN 27 pg (25-34); MEAN CORPUSCULAR HGB CONC 30 g/dL (32-36); MEAN CORPUSCULAR VOLUME 88 fL (80-99); MEAN PLATELET VOLUME 9.9 fL (9.0-12.2); MONOCYTES # (AUTO) 2.1 10^3/uL (0.0-1.0); MONOCYTES % (AUTO) 17 % (0-12); NEUTROPHILS # (AUTO) 7.9 10^3/uL (1.8-7.8); NEUTROPHILS % (AUTO) 66 % (42-75); PLATELET COUNT 356 10^3/uL (130-400); WHITE BLOOD COUNT 11.9 10^3/uL (4.3-11.0)
[2022-08-14 06:47] LABS: ALBUMIN 2.6 GM/DL (3.2-4.5); BILIRUBIN,TOTAL 0.7 MG/DL (0.1-1.0); CREATININE SERUM 0.99 MG/DL (0.60-1.30); POTASSIUM 3.3 MMOL/L (3.6-5.0); TOTAL PROTEIN 6.5 GM/DL (6.4-8.2)
[2022-08-14] MEDS ORDERED: CATHETER FLUSH 10 ML SYR IV PRN (07:45)
[2022-08-14] MEDS ORDERED: IOHEXOL 350 MG/ML 100 ML (OMNIPAQUE 350) VIAL IV ONE (07:45)
[2022-08-14] MEDS ORDERED: HOLD METFORMIN - RECEIVED CONTRAST 20 ML VIAL IV SCH (07:45)
[2022-08-14] MEDS ORDERED: NS 100 ML (IVPB) BAG IV ONE (07:45)
[2022-08-14 08:25] VITALS: BP 134/67
[2022-08-14] MEDS: ALLOPURINOL 300 MG (ZYLOPRIM) TAB PO SCH (09:09)
[2022-08-14] MEDS: PANTOPRAZOLE 40 MG (PROTONIX) VIAL IV SCH ×2 (09:09→20:22)
[2022-08-14] MEDS: DOCUSATE SODIUM 100 MG (COLACE) CAP PO SCH ×2 (09:09→20:21)
[2022-08-14] MEDS: SENNOSIDES 8.6 MG (SENOKOT) TAB PO SCH ×2 (09:11→20:21)
--- NOTE | 2022-08-14 09:43 | Physical Therapy Evaluation ---
PT Evaluation-General Medical Diagnosis Admission Date Aug 13, 2022 at 03:30 Medical Diagnosis: UTI/sepsis/weakness/GRECIA Onset Date: Aug 13, 2022 Therapy Diagnosis Therapy Diagnosis: generalized weakness/debility Height/Weight Height (Feet): 5 Height (Inches): 6.00 Weight (Pounds): 240 Weight (Ounces): 0.0 Precautions Precautions/Isolations: Fall Prevention, Standard Precautions Referral Physician: Jeff Reason for Referral: Evaluation/Treatment Medical History Pertinent Medical History: Arthritis, GERD, HTN, Lymphoma Current History EMS secondary to patient slipped OOB x 2 at home due to weakness Reviewed History: Yes Social History Home: Single Level Current Living Status: Other Family Prior Prior Level of Function SCALE: Activities may be completed with or without assistive devices. 0-Mlaietuycz-shnhshu completes the activity by him/herself with no assistance from a helper. 5-Set-up or Clean-up Assistance-helper sets up or cleans up; patient completes activity. Reserve assists only prior to or following the activity. 4-Supervision or Touching Assistance-helper provides verbal cues and/or touching/steadying and/or contact guard assistance as patient completes activity. Assistance may be provided throughout the activity or intermittently. 3-Partial/Moderate Assistance-helper does LESS THAN HALF the effort. Reserve lifts, holds or supports trunk or limbs, but provides less than half the effort. 2-Substantial/Maximal Assistance-helper does MORE THAN HALF the effort. Reserve lifts or holds trunk or limbs and provides more than half the effort. 4-Emrsigbhe-zewxkl does ALL the effort. Patient does none of the effort to complete the activity. Or, the assistance of 2 or more helpers is required for the patient to complete the activity. If activity was not attempted, code reason: 7-Patient Refused. 9-Not Applicable-not attempted and the patient did not perform the activity before the current illness, exacerbation or injury. 10-Not Attempted due to Environmental Limitations-(lack of equipment, weather restraints, etc.). 88-Not Attempted due to Medical Conditions or Safety Concerns. Bed Mobility: 6 Transfers (B,C,W/C): 6 Gait: 6 Stairs: 6 Indoor Mobility (Ambulation): Independent Stairs: Independent Prior Devices Use: Walker PT Evaluation-Current Subjective Patient is very lethargic. Agrees to PT. Objective Patient Orientation: Normal For Age Attachments: Oxygen, IV ROM/Strength ROM Lower Extremities bilateral LE WFL Strength Lower Extremities 3-/5 grossly bilateral LE all planes Integumentary/Posture Bowel Incontinence: No Posture WFL Neuromuscular (Tone, Coordination, Reflexes) grossly intact Sensory Vision: Functional Hearing: Impaired Transfers Roll Left to Right (QC): 3 Sit to Lying (QC): 3 Lying to Sitting/Side of Bed(Q: 3 Sit to Stand (QC): 3 Gait Mode of Locomotion: Walk Anticipated Mode of Locomotion: Walk Walk 10 feet (QC): 3 Walk 50 ft with 2 Turns(QC): 88 Gait Assistive Device: FWW Balance Sitting Static: Normal Sitting Dynamic: Normal Standing Static: Fair Standing Dynamic: Fair Assessment/Needs Patient will benefit from skilled PT to address functional strength and mobility to improve current LOF to safely return to home at maximum LOF. Rehab Potential: Fair PT Park Warden Goals Park Warden Goals PT Retirement Goals Time Frame: Aug 26, 2022 Roll Left & Right (QC): 6 Sit to Lying (QC): 6 Lying-Sitting on Side/Bed(QC): 6 Sit to Stand (QC): 6 Chair/Kwx-en-Kfqus Xfer(QC): 6 Toilet Transfer (QC): 6 Walk 10 feet (QC): 5 Walk 50ft with 2 Turns (QC): 5 Walk 150 ft (QC): 5 PT Plan Problem List Problem List: Activity Tolerance, Functional Strength, Safety, Balance, Gait, Transfer, Bed Mobility Treatment/Plan Treatment Plan: Continue Plan of Care Treatment Plan: Bed Mobility, Education, Functional Activity Ramón, Functional Strength, Gait, Safety, Therapeutic Exercise, Transfers Treatment Duration: Aug 26, 2022 Frequency: 6 times per week Estimated Hrs Per Day: .25 hour per day Patient and/or Family Agrees t: Yes Time Time In: 905 Time Out: 920 DATE: Aug 14, 2022 Total Billed Treatment Time: 15 Total Billed Treatment 1 visit [facility] 15 min JOSÉ ANTONIO HORAN PT Aug 14, 2022 09:43
--- NOTE | 2022-08-14 09:47 | Diagnostic Imaging Report ---
PROCEDURE: CT abdomen and pelvis with and without contrast. TECHNIQUE: Precontrast acquisitions were acquired through the abdomen and pelvis. Multiple contiguous axial images were obtained through the abdomen and pelvis after the administration of intravenous contrast. Auto Exposure Controls were utilized during the CT exam to meet ALARA standards for radiation dose reduction. INDICATION: Lymphoma progression and abdominal pain. COMPARISON: No prior studies are available for comparison. FINDINGS: There are trace bilateral pleural effusions and bibasilar atelectasis. There is a calcified granuloma in the left lower lobe. No discrete liver mass is detected. The gallbladder is surgically absent. The pancreas and spleen are unremarkable. No adrenal mass is identified. There is significant upper abdominal lymphadenopathy. There is significant bulky lymphadenopathy in the retroperitoneum. An aortocaval mass at the level of the upper pole of the kidneys measures approximately 7.6 x 4.4 cm. A left periaortic jose mass is 3.7 cm in transverse diameter. There are some enlarged lymph nodes in the ximena hepatis and portacaval regions as well. A jose mass anterior to the left psoas muscle at the level of the left common iliac artery appears to obstruct the left ureter and produces moderate left-sided hydroureteronephrosis. This jose mass measures 4.1 x 4.1 cm. There are some enlarged lymph nodes in the right common iliac region as well. No significant enlarged lymph nodes in the inguinal regions or obturator regions are seen. The bladder is decompressed. The aorta is calcified but nonaneurysmal. Bowel loops are of normal caliber. No significant ascites is seen. The uterus is surgically absent. There is a large amount of artifact through the pelvis from the right hip prosthesis. IMPRESSION: 1. Trace bilateral pleural effusions with bibasilar atelectasis. 2. Significant abdominal and pelvic lymphadenopathy in keeping with the patient's diagnosis of lymphoma. A jose mass does appear to produce extrinsic compression upon the left ureter in the the proximal to midportion producing moderate left sided hydroureteronephrosis. Dictated by: Dictated on workstation # [id number]
[2022-08-14] MEDS ORDERED: FURO80TA3 PO (10:55)
[2022-08-14] MEDS ORDERED: ALBU8.5H6 PO (10:55)
[2022-08-14] MEDS ORDERED: BUDE10.2 IH (10:55)
[2022-08-14] MEDS ORDERED: ONDA-106 PO (10:55)
--- NOTE | 2022-08-14 11:00 | Progress Note - Cardiology ---
Cardiology SOAP Progress Note Objective: I&O/Vital Signs 08/14/22 08/14/22 08/14/22 08/15/22 20:52 20:59 23:44 00:00 Temp 37.2 37.2 Pulse 91 Resp 16 B/P (MAP) 147/73 (97) Pulse Ox 94 94 94 O2 Delivery Nasal Cannula Nasal Cannula Nasal Cannula O2 Flow Rate 4.00 4.00 4.00 08/15/22 08/15/22 08/15/22 03:24 03:58 07:21 Temp 37.5 37.5 37.3 Pulse 84 78 Resp 16 16 B/P (MAP) 153/73 (99) 129/60 (83) Pulse Ox 93 91 O2 Delivery Nasal Cannula Nasal Cannula O2 Flow Rate 4.00 4.00 08/15/22 00:00 Intake Total 600 ml Output Total 850 ml Balance -250 ml Weight (Pounds): 240 Weight (Ounces): 0.0 Weight (Calculated Kilograms): [id number] Constitutional: AAO x 3, well-developed, well-nourished Respiratory: No accessory muscle use; other (good, bilateral air entry) Cardiovascular: regular rate-rhythm, S1 and S2, systolic murmur (soft TAYE at card base) Gastrointestional: No tender; soft; No guarding, No rebound; audible bowel sounds Extremities: No clubbing, No cyanosis, No significant edema Neurologic/Psychiatric: oriented x 3, other (moves all limbs equally) Skin: normal color, warm/dry; No rash on exposed areas, No ulcerations on exposed areas Results/Procedures: Labs Laboratory Tests 08/14/22 12:19: Lab Scanned Report Transfusion Reaction Form 08/15/22 06:15: White Blood Count 12.3H, Red Blood Count 2.78L, Hemoglobin 7.5L, Hematocrit 24L, Mean Corpuscular Volume 88, Mean Corpuscular Hemoglobin 27, Mean Corpuscular Hemoglobin Concent 31L, Red Cell Distribution Width 16.1H, Platelet Count 331, Mean Platelet Volume 9.6, Immature Granulocyte % (Auto) 3, Neutrophils (%) (Auto) 72, Lymphocytes (%) (Auto) 7L, Monocytes (%) (Auto) 15H, Eosinophils (%) (Auto) 3, Basophils (%) (Auto) 1, Neutrophils # (Auto) 8.8H, Lymphocytes # (Auto) 0.8L, Monocytes # (Auto) 1.9H, Eosinophils # (Auto) 0.4H, Basophils # (Auto) 0.1, Immature Granulocyte # (Auto) 0.4H, Sodium Level 130L, Potassium Level 3.9, Chloride Level 96L, Carbon Dioxide Level 24, Anion Gap 10, Blood Urea Nitrogen 16, Creatinine 1.04, Estimat Glomerular Filtration Rate 52, BUN/Creatinine Ratio 15, Glucose Level 127H, Calcium Level 8.9, Corrected Calcium 10.2H, Total Bilirubin 0.5, Aspartate Amino Transf (AST/SGOT) 152H, Alanine Aminotransferase (ALT/SGPT) 46, Alkaline Phosphatase 226H, Total Protein 6.1L, Albumin 2.4L Microbiology 08/13/22 Blood Culture - Preliminary, Resulted No growth 08/13/22 Urine Culture - Preliminary, Resulted Klebsiella pneumoniae A/P: Assessment: Profound gen weakness - likely related to multiple comorbidities noted below Recently diagnosed lymphoma (late 2021) - managed by Dr Bustos Marked anemia - managed by pcp sole Bustos - Eliquis is being held by the [facility] at this time - received 1 unit PRBC Extreme fatigue and marked shortness of breath of new onset 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 Normal right heart pressures and normal global left ventricular systolic function with an ejection fraction of 55% per cardiac catheterization of September 2011. - Echocardiogram from 04-14-22 showed LVEF 50-55%; LA mildly dilated; Mild AoR. PASP 35-40 mmHg - MPI 04-25-22: The study is indicative of a small to moderate sized apical infarction without significant ischemia. Apical akinesis. Well preserved global left ventricular systolic function with a calculated ejection fraction of 59%. 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 - No evidence of significant renal artery stenosis on CT angiography of June 2005. Hyperlipidemia - being treated with atorvastatin which is followed by Dr. Hurst Impaired fasting glucose - managed by pcp Fibromyalgia and chronic backache and degenerative joint disease and fatigue. Ortho - Status post laparoscopic surgery on the left knee. - History of hip replacement surgery. - S/P left knee replacement in Mar 2019 Gastroesophageal reflux. - managed by PCP Abnormal ECG - Chronic early repolarization on surface electrocardiography. - ECG on 12/26/17: NSR with isolated PVCs, baseline artifact Carotid dz - Mild carotid arterial disease on ultrasonography of 11-18-20 Sleep apnea - for which she is on CPAP tx CKD 3b Plan: * Complex management due to multiple comorbidities * Purely from a cardiac standpoint, OAC is indicated. Please resume when OK from the standpoint of Med and Heme/Onc svces * S/P 1 unit PRBC * Continue anti-htn regimen * Monitor labs DUTCH MONTOYA Aug 14, 2022 11:00
[2022-08-14] MEDS ORDERED: SUCR1TAB36 PO (11:23)
[2022-08-14] MEDS: ALPRAZolam 0.25 MG (XANAX) TAB PO PRN (11:50)
--- NOTE | 2022-08-14 11:52 | Occupational Therapy Eval ---
OT Evaluation-General/PLF Medical Diagnosis Admission Date Aug 13, 2022 at 03:30 Medical Diagnosis: UTI/sepsis/weakness/GRECIA Onset Date: Aug 13, 2022 Therapy Diagnosis Therapy Diagnosis: decreased ADL status Height/Weight Height (Feet): 5 Height (Inches): 6.00 Weight (Pounds): 240 Weight (Ounces): 0.0 Precautions Precautions/Isolations: Fall Prevention, Standard Precautions Referral Physician: Sania Referral Reason: Evaluation/Treatment Medical History Pertinent Medical History: Arthritis, GERD, HTN, Lymphoma Additional Medical History lymphoma, pacemaker, R hip replacement, L knee replacement, HTN, GERD, diverticulosis, osteoporosis, arthritis, fibromyalgia, Current History ED after fall and unable to get up. Social History Home: Single Level Current Living Status: Other Family ADL-Prior Level of Function SCALE: Activities may be completed with or without assistive devices. 2-Neblgaqnlg-gvidscf completes the activity by him/herself with no assistance from a helper. 5-Set-up or Clean-up Assistance-helper sets up or cleans up; patient completes activity. Hettinger assists only prior to or following the activity. 4-Supervision or Touching Assistance-helper provides verbal cues and/or touching/steadying and/or contact guard assistance as patient completes activity. Assistance may be provided throughout the activity or intermittently. 3-Partial/Moderate Assistance-helper does LESS THAN HALF the effort. Hettinger lif ts, holds or supports trunk or limbs, but provides less than half the effort. 2-Substantial/Maximal Assistance-helper does MORE THAN HALF the effort. Hettinger lifts or holds trunk or limbs and provides more than half the effort. 2-Ytwvecobl-uockdy does ALL the effort. Patient does none of the effort to complete the activity. Or, the assistance of 2 or more helpers is required for the patient to complete the activity. If activity was not attempted, code reason: 7-Patient Refused. 9-Not Applicable-not attempted and the patient did not perform the activity before the current illness, exacerbation or injury. 10-Not Attempted due to Environmental Limitations-(lack of equipment, weather restraints, etc.). 88-Not Attempted due to Medical Conditions or Safety Concerns. ADL PLOF Comments Pt's family member indicates pt is typically independent with ADLS, but has had increasing weakness over the last several weeks, requiring more assistance with ADLs. Self Care: Needed Some Help OT Current Status Subjective Pt in bed, family member at bedside. Mental Status/Objective Patient Orientation: Person, Place, Situation Attachments: Oxygen ADL-Treatment Eating (QC): 5 (Pt's family member set up pt's food, then pt able to feed self food and drinks.) Oral Hygiene (QC): 5 (Per clincial judgment.) Toileting Hygiene (QC): 1 (Per family report, pt required assistance with all parts of toileting.) Other Treatments Pt in bed, declined OOB activities at this time due to fatigue and being unable to sleep much in the hospital with everyone coming in/out of her room all the time. Pt's family member present, indicates pt has been getting progressively weaker over the last several weeks. Pt eating lunch, family member setting up pt for feeding. Pt able to self feed after set up assistance. Pt declined need to toilet at this time, family member indicates pt requires assistance with all parts. Pt and family member educated on OT POC, they verbalized understanding. Post tx, pt in bed, call light in reach and all needs met. Education OT Patient Education: Correct positioning, Energy conservation, Modified ADL techniques, Progress toward Goal/Update tx plan, Purpose of tx/functional activities, Rehab process Teaching Recipient: Patient Teaching Methods: Discussion Response to Teaching: Verbalize Understanding OT Long-Term Goals Long-Term Goals Time Frame: Aug 25, 2022 Eating (QC): 6 Oral Hygiene (QC): 6 Toileting Hygiene (QC): 4 Shower/Bathe Self (QC): 4 Upper Body Dressing (QC): 5 Lower Body Dressing (QC): 4 On/Off Footwear (QC): 4 Additional Goals: 1-Demonstrate ADL Tasks, 2-Verbalize Understanding, 3- ImproveStrength/Ramón 1=Demonstrate adherence to instructed precautions during ADL tasks. 2=Patient will verbalize/demonstrate understanding of assistive d evices/modifications for ADL. 3=Patient will improve strength/tolerance for activity to enable patient to perform ADL's. OT Education/Plan Problem List/Assessment Assessment: Decreased Activ Tolerance, Decreased UE Strength, Impaired Funct Balance, Impaired I ADL's, Impaired Self-Care Skills Discharge Recommendations Plan/Recommendations: Continue POC Treatment Plan/Plan of Care Patient would benefit from OT for education, treatment and training to promote independence in ADL's, mobility, safety and/or upper extremity function for A DL's. Plan of Care: ADL Retraining, Functional Mobility, UE Funct Exercise/Act Treatment Duration: Aug 25, 2022 Frequency: 3 times per week (3-5 times per week) Estimated Hrs Per Day: .25 hour per day Agreement: Yes Rehab Potential: Fair Time Start Time: 11:20 Stop Time: 11:30 DATE: Aug 14, 2022 Total Time Billed (hr/min): 10 Billed Treatment Time 1, ASHLEY HENRY OT Aug 14, 2022 11:52
[2022-08-14 11:57] VITALS: BP 153/76
[2022-08-14] MEDS: ACETAMINOPHEN 500 MG TAB (TYLENOL) PO PRN (12:23)
--- NOTE | 2022-08-14 14:03 | Progress Note ---
VALE FLORES 08/14/22 1403: Subjective Subjective/Events-last exam Ms. Yao is an 86 y/o female with a PMHx of lymphoma, GERD, CAD, HTN, sleep apnea, gout, PAF, and depression who has been admitted to the Hospitalist service for management of anemia and sepsis secondary to UTI. Patient has concurrent diagnosis of lymphoma and is being followed by Dr. Bustos. Patient is s/p transfusion of 1 unit of PRBC, Hgb 8.9. Patient reports she is feeling better this morning but is still very weak. Patient endorses SOA with exertion this morning, IVF have been discontinued since patient is able to tolerate PO hydration. Patient had a CT abdomen/pelvis this morning that has been reviewed. Dr. Bustos plans to discuss the results with the patient this evening. Review of Systems General: Fatigue HEENT: No Head Aches Pulmonary: Dyspnea (with exertion) Cardiovascular: No: Chest Pain, Edema Gastrointestinal: Abdominal Pain (generalized); No: Nausea, Vomiting, Diarrhea, Constipation Genitourinary: No Dysuria Musculoskeletal: back pain (attributed to laying in bed) Focused Exam Lactate Level 08/13/22 08:16: Lactic Acid Level 2.35*H 08/13/22 10:36: Lactic Acid Level 2.67*H 08/13/22 12:46: Lactic Acid Level 2.50*H Objective Exam Last Set of Vital Signs Vital Signs Date Time Temp Pulse Resp B/P (MAP) Pulse Ox O2 Delivery O2 Flow Rate FiO2 08/14/22 11:57 37.0 87 18 153/76 (101) 93 Nasal Cannula 4.00 Capillary Refill : Less Than 3 Seconds I&O Intake and Output 08/14/22 00:00 Intake Total 2540 ml Output Total 1050 ml Balance 1490 ml Intake Oral 1490 ml IV Total 1050 ml Output Urine Total 1050 ml Daily Weight Change Yes, Greater than 33 lbs General: Alert, No Acute Distress HEENT: Atraumatic Lungs: Other Heart: Regular Rate Abdomen: Normal Bowel Sounds, Soft Extremities: No Edema Neuro: Normal Speech Psych/Mental Status: Mental Status NL, Mood NL Results/Procedures Lab Laboratory Tests 08/14/22 05:50: White Blood Count 11.9H, Red Blood Count 3.34L, Hemoglobin 8.9L, Hematocrit 29L, Mean Corpuscular Volume 88, Mean Corpuscular Hemoglobin 27, Mean Corpuscular Hemoglobin Concent 30L, Red Cell Distribution Width 15.9H, Platelet Count 356, Mean Platelet Volume 9.9, Immature Granulocyte % (Auto) 5, Neutrophils (%) (Auto) 66, Lymphocytes (%) (Auto) 8L, Monocytes (%) (Auto) 17H, Eosinophils (%) (Auto) 3, Basophils (%) (Auto) 1, Neutrophils # (Auto) 7.9H, Lymphocytes # (Auto) 1.0, Monocytes # (Auto) 2.1H, Eosinophils # (Auto) 0.4H, Basophils # (Auto) 0.1, Immature Granulocyte # (Auto) 0.5H, Sodium Level 130L, Potassium Level 3.3L, Chloride Level 95L, Carbon Dioxide Level 23, Anion Gap 12, Blood Urea Nitrogen 19H, Creatinine 0.99, Estimat Glomerular Filtration Rate 56, BUN/Creatinine Ratio 19, Glucose Level 114H, Calcium Level 9.0, Corrected Calcium 10.1, Total Bilirubin 0.7, Aspartate Amino Transf (AST/SGOT) 70H, Alanine Aminotransferase (ALT/SGPT) 26, Alkaline Phosphatase 177H, Total Protein 6.5, Albumin 2.6L 08/14/22 12:19: Lab Scanned Report Transfusion Reaction Form Radiology NAME: DAISHA YAO [facility] REC#: [id number] PT STATUS: ADM IN : 1935 PHYSICIAN: ABEL BUSTOS MD ADMIT DATE: 08/13/22/ Draft Date of Exam:08/14/22 CT ABDOMEN/PELVIS W WO PROCEDURE: CT abdomen and pelvis with and without contrast. TECHNIQUE: Precontrast acquisitions were acquired through the abdomen and pelvis. Multiple contiguous axial images were obtained through the abdomen and pelvis after the administration of intravenous contrast. Auto Exposure Controls were utilized during the CT exam to meet ALARA standards for radiation dose reduction. INDICATION: Lymphoma progression and abdominal pain. COMPARISON: No prior studies are available for comparison. FINDINGS: There are trace bilateral pleural effusions and bibasilar atelectasis. There is a calcified granuloma in the left lower lobe. No discrete liver mass is detected. The gallbladder is surgically absent. The pancreas and spleen are unremarkable. No adrenal mass is identified. There is significant upper abdominal lymphadenopathy. There is significant bulky lymphadenopathy in the retroperitoneum. An aortocaval mass at the level of the upper pole of the kidneys measures approximately 7.6 x 4.4 cm. A left periaortic jose mass is 3.7 cm in transverse diameter. There are some enlarged lymph nodes in the ximena hepatis and portacaval regions as well. A jose mass anterior to the left psoas muscle at the level of the left common iliac artery appears to obstruct the left ureter and produces moderate left-sided hydroureteronephrosis. This jose mass measures 4.1 x 4.1 cm. There are some enlarged lymph nodes in the right common iliac region as well. No significant enlarged lymph nodes in the inguinal regions or obturator regions are seen. The bladder is decompressed. The aorta is calcified but nonaneurysmal. Bowel loops are of normal caliber. No significant ascites is seen. The uterus is surgically absent. There is a large amount of artifact through the pelvis from the right hip prosthesis. IMPRESSION: 1. Trace bilateral pleural effusions with bibasilar atelectasis. 2. Significant abdominal and pelvic lymphadenopathy in keeping with the patient's diagnosis of lymphoma. A jose mass does appear to produce extrinsic compression upon the left ureter in the the proximal to midportion producing moderate left sided hydroureteronephrosis. Dictated on workstation # [id number] Dict: 08/14/22 0933 Trans: 08/14/22 0946 [id number] Interpreted by: HELENA HEAD MD Electronically signed by: Assessment/Plan Assessment/Plan Admission Dx Sepsis secondary to UTI, anemia requiring blood transfusion Admission Status: Inpatient Order (span 2 midnights) (1) Lactic acidosis Status: Acute Assessment & Plan: Lactic acidosis likely secondary to sepsis -Continue to treat UTI -Lactate is trending down, continue to monitor -No other identifiable cause of lactic acidosis at this time (2) Sleep apnea Status: Chronic Assessment & Plan: Chronic sleep apnea -Patient's family are bringing the patient's CPAP for nighttime use (3) Hypokalemia Status: Acute Assessment & Plan: Hypokalemia with K of 3.3 on 08/14 -Monitor with AM BMP -KCl 20meq PO qd (4) Hyponatremia Status: Acute Assessment & Plan: Hyponatremia with Na of 130 on 08/14 -Monitor with AM BMP -Consider hypertonic saline as treatment if Na <130 (5) 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 Status: Chronic Assessment & Plan: -Appreciate plan per cardiology -Continue to monitor BP -Resume home medications (6) Atrial fibrillation Status: Chronic Assessment & Plan: -Appreciate plan per Cardiology -Hold Eliquis 5mg PO BID, appreciate plan per Heme/Onc Qualifiers: Qualified Codes: I48.0 - Paroxysmal atrial fibrillation (7) Lymphoma Assessment & Plan: -Appreciate plan per Heme/Onc -Xanax 0.25 mg PO Q8H PRN for anxiety management -Pain control with Dilaudid 0.25mg Q2H IV PRN -Continue to monitor Hgb with AM CBC and monitoring of symptoms -PT/OT services to increase strength/stability and for position changes/off- loading (8) Sepsis Status: Acute Assessment & Plan: -Sepsis secondary to UTI -Continue Rocephin 1gm IV qd for 5 days -UA sent for culture -Monitor urine output -Closely monitor vitals Qualifiers: Qualified Codes: A41.9 - Sepsis, unspecified organism (9) Generalized weakness Status: Acute Assessment & Plan: Likely secondary to anemia, appreciate plan per lymphoma diagnosis (10) Urinary tract infection Status: Acute Assessment & Plan: -Likely cause of sepsis - appreciate plan per Sepsis diagnosis Qualifiers: Qualified Codes: N39.0 - Urinary tract infection, site not specified (11) Anemia Status: Acute Assessment & Plan: Hgb 8.9 s/p transfusion of 1 unit of PRBC. Continue to monitor Hgb with AM CBC and appreciate plan per lymphoma diagnosis Qualifiers: Qualified Codes: D64.9 - Anemia, unspecified CAROL SAM MD 08/14/22 1528: Subjective Review of Systems Pulmonary: Dyspnea (with exertion) Cardiovascular: No: Chest Pain, Edema Gastrointestinal: Nausea, Abdominal Pain (generalized) Musculoskeletal: back pain (attributed to laying in bed) Neurological: Weakness, Incoordination; No: Confusion Objective Exam General: Alert, Oriented X3, Mild Distress (with minimal exertion) Lungs: Other (Diminished breath sounds, no crackles or wheezing) Heart: Regular Rate, No Murmurs Abdomen: Normal Bowel Sounds, Soft, Other (Epigastric fullness and pain to palpation) Neuro: Normal Speech Assessment/Plan Assessment/Plan (1) Sepsis Status: Acute Assessment & Plan: -Sepsis secondary to UTI -Continue Rocephin 1gm IV qd for 5 days -UA sent for culture -Monitor urine output -Closely monitor vitals Qualifiers: Qualified Codes: A41.9 - Sepsis, unspecified organism (2) Anemia Status: Acute Assessment & Plan: Hgb 8.9 s/p transfusion of 1 unit of PRBC. Continue to monitor Hgb with AM CBC and appreciate plan per lymphoma diagnosis Qualifiers: Qualified Codes: D64.9 - Anemia, unspecified (3) Urinary tract infection Status: Acute Assessment & Plan: -Likely cause of sepsis - appreciate plan per Sepsis diagnosis Qualifiers: Qualified Codes: N39.0 - Urinary tract infection, site not specified (4) Lymphoma Assessment & Plan: -Appreciate plan per Heme/Onc -Xanax 0.25 mg PO Q8H PRN for anxiety management -Pain control with Dilaudid 0.25mg Q2H IV PRN -Continue to monitor Hgb with AM CBC and monitoring of symptoms -PT/OT services to increase strength/stability and for position changes/off- loading (5) Lactic acidosis Status: Acute Assessment & Plan: Lactic acidosis likely secondary to sepsis -Continue to treat UTI -Lactate is trending down, continue to monitor -No other identifiable cause of lactic acidosis at this time (6) Sleep apnea Status: Chronic Assessment & Plan: Chronic sleep apnea -Patient's family are bringing the patient's CPAP for nighttime use (7) Hypokalemia Status: Acute Assessment & Plan: Hypokalemia with K of 3.3 on 08/14 -Monitor with AM BMP -KCl 20meq PO qd (8) Hyponatremia Status: Acute Assessment & Plan: Hyponatremia with Na of 130 on 08/14 -Monitor with AM BMP -Consider hypertonic saline as treatment if Na <130 (9) 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 Status: Chronic Assessment & Plan: -Appreciate plan per cardiology -Continue to monitor BP -Resume home medications (10) Atrial fibrillation Status: Chronic Assessment & Plan: -Appreciate plan per Cardiology -Hold Eliquis 5mg PO BID, appreciate plan per Heme/Onc Qualifiers: Qualified Codes: I48.0 - Paroxysmal atrial fibrillation (11) Generalized weakness Status: Acute Assessment & Plan: Likely secondary to anemia, appreciate plan per lymphoma diagnosis Supervisory-Addendum Brief Supervisory Addendum Verification and Attestation of Medical Student E/M Service A medical student performed and documented this service in my presence. I reviewed and verified all information documented by the medical student and made modifications to such information, when appropriate. I personally performed the physical exam and medical decision making. Carol Sam, Aug 14, 2022,15:22 86 yo F that presented with Shortness of breath and Sepsis 2/2 to UTI Sepsis UTI - IV antibiotics and IVFs, IVFs stopped today due to resolved ARF and becoming increasingly short of breath Acute Respiratory Failure - MAT protocol, continue to titrate oxygen as tolerated, restarted home in [facility] Retroperitoneal Lymphadenopathy - Dr Bustos consulted, CT abdomen completed and shows extensive lymphadenopathy, appreciate recommendations Acute Renal Failure - Resolved with IVFs, continue to treat UTI Normocytic Anemia - s/p 1 unit pRBCs, Hgb 8.9 today, holding OAC at this time Hypokalemia - Replace and repeat CMP VALE FLORES Aug 14, 2022 14:03 CAROL SAM MD Aug 14, 2022 15:28
[2022-08-14 15:42] VITALS: BP 129/62
[2022-08-14] MEDS: ALPRAZolam 0.25 MG (XANAX) TAB PO SCH ×2 (16:14→22:22)
--- NOTE | 2022-08-14 17:11 | Progress Note ---
Standard Progress Note Progress Notes/Assess & Plan Date Seen by a Provider: Aug 14, 2022 Time Seen by a Provider: 16:59 Progress/Assessment & Plan Reviewed labs and CT results with patient, her son and daughter and answered their questions. CTs with significant increase in retroperitoneal, retrocrural and para aortic lymphadenopathy which is causing left ureteral obstruction and hydronephrosis. Abdominal and back pain is related to this. Patient also has Klebsiella UTI with >100,000 colonies on culture with sensitivity pending. with regards to options for diagnosis and treatment, one is transfer to a tertiary center for nephrostomy tube placement and biopsy of LN for diagnosis and treatment based on pathology. Second option is to obtain a CT guided needle biopsy by IR locally and treat based on pathology. Third option is best supportive care. Patient and family wanted to discuss this further and will decide by tomorrow AM. Will follow patient with you. Focused Exam Lactate Level 08/13/22 08:16: Lactic Acid Level 2.35*H 08/13/22 10:36: Lactic Acid Level 2.67*H 08/13/22 12:46: Lactic Acid Level 2.50*H ABEL ARANGO Aug 14, 2022 17:11
--- NOTE | 2022-08-14 18:45 | Progress Note - Cardiology ---
Cardiology SOAP Progress Note Subjective: Gen weakness and malaise No cp or palp or syncope No n/v/d Objective: I&O/Vital Signs 08/14/22 08/14/22 08/14/22 08/14/22 08:25 08:44 11:57 15:42 Temp 36.9 37.0 36.8 Pulse 77 87 75 Resp 18 18 18 B/P (MAP) 134/67 (89) 153/76 (101) 129/62 (84) Pulse Ox 93 93 92 O2 Delivery Nasal Cannula Nasal Cannula Nasal Cannula Nasal Cannula O2 Flow Rate 5.00 4.00 4.00 4.00 08/14/22 17:24 O2 Delivery Nasal Cannula O2 Flow Rate 4.00 08/14/22 00:00 Intake Total 1340 ml Output Total 850 ml Balance 490 ml Weight (Pounds): 240 Weight (Ounces): 0.0 Weight (Calculated Kilograms): 108.948154 Constitutional: AAO x 3, well-developed, well-nourished Respiratory: No accessory muscle use; other (good, bilateral air entry) Cardiovascular: regular rate-rhythm, S1 and S2, systolic murmur (soft TAYE at card base) Gastrointestional: No tender; soft; No guarding, No rebound; audible bowel sounds Extremities: No clubbing, No cyanosis, No significant edema Neurologic/Psychiatric: oriented x 3, other (moves all limbs equally) Skin: normal color, warm/dry; No rash on exposed areas, No ulcerations on exposed areas Results/Procedures: Labs Laboratory Tests 08/14/22 05:50: White Blood Count 11.9H, Red Blood Count 3.34L, Hemoglobin 8.9L, Hematocrit 29L, Mean Corpuscular Volume 88, Mean Corpuscular Hemoglobin 27, Mean Corpuscular Hemoglobin Concent 30L, Red Cell Distribution Width 15.9H, Platelet Count 356, Mean Platelet Volume 9.9, Immature Granulocyte % (Auto) 5, Neutrophils (%) (Auto) 66, Lymphocytes (%) (Auto) 8L, Monocytes (%) (Auto) 17H, Eosinophils (%) (Auto) 3, Basophils (%) (Auto) 1, Neutrophils # (Auto) 7.9H, Lymphocytes # (Auto) 1.0, Monocytes # (Auto) 2.1H, Eosinophils # (Auto) 0.4H, Basophils # (Auto) 0.1, Immature Granulocyte # (Auto) 0.5H, Sodium Level 130L, Potassium Level 3.3L, Chloride Level 95L, Carbon Dioxide Level 23, Anion Gap 12, Blood Urea Nitrogen 19H, Creatinine 0.99, Estimat Glomerular Filtration Rate 56, BUN/Creatinine Ratio 19, Glucose Level 114H, Calcium Level 9.0, Corrected Calcium 10.1, Total Bilirubin 0.7, Aspartate Amino Transf (AST/SGOT) 70H, Alanine Aminotransferase (ALT/SGPT) 26, Alkaline Phosphatase 177H, Total Protein 6.5, Albumin 2.6L 08/14/22 12:19: Lab Scanned Report Transfusion Reaction Form Microbiology 08/13/22 Blood Culture - Preliminary, Resulted No growth 08/13/22 Urine Culture - Preliminary, Resulted Klebsiella pneumoniae Laboratory Tests 08/13/22 02:01 08/13/22 08:16 08/14/22 05:50 A/P: Assessment: Profound gen weakness - likely related to multiple comorbidities noted below Recently diagnosed lymphoma (late 2021) - managed by Dr Bustos Marked anemia - managed by pcp everardon Dr Bustos - Eliquis is being held by the [employer] at this time - received 1 unit PRBC Extreme fatigue and marked shortness of breath of new onset 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 Normal right heart pressures and normal global left ventricular systolic function with an ejection fraction of 55% per cardiac catheterization of September 2011. - Echocardiogram from 04-14-22 showed LVEF 50-55%; LA mildly dilated; Mild AoR. PASP 35-40 mmHg - MPI 04-25-22: The study is indicative of a small to moderate sized apical infarction without significant ischemia. Apical akinesis. Well preserved global left ventricular systolic function with a calculated ejection fraction of 59%. 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 - No evidence of significant renal artery stenosis on CT angiography of June 2005. Hyperlipidemia - being treated with atorvastatin which is followed by Dr. Hurst Impaired fasting glucose - managed by pcp Fibromyalgia and chronic backache and degenerative joint disease and fatigue. Ortho - Status post laparoscopic surgery on the left knee. - History of hip replacement surgery. - S/P left knee replacement in Mar 2019 Gastroesophageal reflux. - managed by PCP Abnormal ECG - Chronic early repolarization on surface electrocardiography. - ECG on 12/26/17: NSR with isolated PVCs, baseline artifact Carotid dz - Mild carotid arterial disease on ultrasonography of 11-18-20 Sleep apnea - for which she is on CPAP tx CKD 3b Plan: * Complex management due to multiple comorbidities * She seems to have decided on conservative management only * Purely from a cardiac standpoint, OAC is indicated. Please resume when OK from the standpoint of Med and Heme/Onc svces * S/P 1 unit PRBC * Continue anti-htn regimen * Replenish K * Monitor labs ROMAN TORRES MD FACP FACC CCDS Aug 14, 2022 18:45
[2022-08-14] MEDS ORDERED: KCL 20 MEQ TAB (K-DUR) PO NR (19:00)
[2022-08-14 19:05] VITALS: BP 130/60
[2022-08-14] MEDS: amLODIPine 5 MG (NORVASC) TAB PO SCH (20:21)
[2022-08-14] MEDS: DULoxetine 30 MG (CYMBALTA) CAP PO SCH (20:21)
[2022-08-14] MEDS: morphine INJ 4 MG/ML 1 ML (VIAL/SYRINGE) IV PRN ×2 (20:35→23:24)
[2022-08-14] MEDS: RT--FLUTICASONE/SALMETEROL 232-14 (AIRDUO RespiCLICK) IH SCH (20:49)
[2022-08-14] MEDS ORDERED: NON-FORMULARY MEDICATION 1 EA EA (Budesonide/Formoterol Fumarate (Symbicort 160-4.5 Mcg In IH SCH (21:00)
[2022-08-14 23:44] VITALS: BP 147/73
[2022-08-15] MEDS: ALPRAZolam 0.25 MG (XANAX) TAB PO SCH ×3 (00:32→20:59)
[2022-08-15] MEDS: cefTRIAXone 1 GM IV (PRE-MIX) 50 ML IV SCH (02:48)
[2022-08-15] MEDS: morphine INJ 4 MG/ML 1 ML (VIAL/SYRINGE) IV PRN ×2 (03:21→10:55)
[2022-08-15 03:24] VITALS: BP 153/73
[2022-08-15 06:29] LABS: BASOPHILS # (AUTO) 0.1 10^3/uL (0.0-0.1); BASOPHILS % (AUTO) 1 % (0-10); EOSINOPHILS # (AUTO) 0.4 10^3/uL (0.0-0.3); EOSINOPHILS % (AUTO) 3 % (0-10); HEMATOCRIT 24 % (35-52); HEMOGLOBIN 7.5 g/dL (11.5-16.0); LYMPHOCYTES # (AUTO) 0.8 10^3/uL (1.0-4.0); LYMPHOCYTES % (AUTO) 7 % (12-44); MEAN CORPUSCULAR HEMOGLOBIN 27 pg (25-34); MEAN CORPUSCULAR HGB CONC 31 g/dL (32-36); MEAN CORPUSCULAR VOLUME 88 fL (80-99); MEAN PLATELET VOLUME 9.6 fL (9.0-12.2); MONOCYTES # (AUTO) 1.9 10^3/uL (0.0-1.0); MONOCYTES % (AUTO) 15 % (0-12); NEUTROPHILS # (AUTO) 8.8 10^3/uL (1.8-7.8); NEUTROPHILS % (AUTO) 72 % (42-75); PLATELET COUNT 331 10^3/uL (130-400); WHITE BLOOD COUNT 12.3 10^3/uL (4.3-11.0)
[2022-08-15 06:31] LABS: ALBUMIN 2.4 GM/DL (3.2-4.5); POTASSIUM 3.9 MMOL/L (3.6-5.0)
[2022-08-15 06:32] LABS: CALCIUM 8.9 MG/DL (8.5-10.1)
[2022-08-15 06:33] LABS: TOTAL PROTEIN 6.1 GM/DL (6.4-8.2)
[2022-08-15 06:35] LABS: BILIRUBIN,TOTAL 0.5 MG/DL (0.1-1.0)
[2022-08-15 06:37] LABS: CREATININE SERUM 1.04 MG/DL (0.60-1.30)
[2022-08-15 07:21] VITALS: BP 129/60
[2022-08-15] MEDS: PANTOPRAZOLE 40 MG (PROTONIX) VIAL IV SCH ×2 (08:07→21:00)
[2022-08-15] MEDS: ALLOPURINOL 300 MG (ZYLOPRIM) TAB PO SCH (08:07)
[2022-08-15] MEDS: SENNOSIDES 8.6 MG (SENOKOT) TAB PO SCH ×2 (08:08→23:03)
[2022-08-15] MEDS: DOCUSATE SODIUM 100 MG (COLACE) CAP PO SCH ×2 (08:08→21:00)
[2022-08-15] MEDS: RT--FLUTICASONE/SALMETEROL 232-14 (AIRDUO RespiCLICK) IH SCH ×2 (09:50→19:25)
--- NOTE | 2022-08-15 10:05 | Physical Therapy Progress Note ---
Therapy Progress Note Patient declined PT on this date due to pain. Family present. PT will attempt tomorrow a.m. 1 ref JOSÉ ANTONIO HORAN PT Aug 15, 2022 10:05
--- NOTE | 2022-08-15 11:05 | Progress Note - Cardiology ---
Cardiology SOAP Progress Note Objective: I&O/Vital Signs 08/16/22 08/16/22 08/16/22 08/16/22 03:16 07:11 08:00 09:26 Temp 36.8 36.2 Pulse 75 77 Resp 20 16 B/P (MAP) 145/75 (98) 132/58 (82) Pulse Ox 90 91 90 O2 Delivery NIV CPAP Nasal Cannula Nasal Cannula High Flow N/C O2 Flow Rate 5.00 4.00 4.00 08/16/22 11:21 Temp 36.4 Pulse 73 Resp 16 B/P (MAP) 135/60 (85) Pulse Ox 92 O2 Delivery Nasal Cannula O2 Flow Rate 4.00 08/16/22 00:00 Intake Total 660 ml Output Total 500 ml Balance 160 ml Weight (Pounds): 240 Weight (Ounces): 0.0 Weight (Calculated Kilograms): 108.419996 Constitutional: AAO x 3, well-developed, well-nourished Respiratory: No accessory muscle use; other (good, bilateral air entry) Cardiovascular: regular rate-rhythm, S1 and S2, systolic murmur (soft TAYE at card base) Gastrointestional: No tender; soft; No guarding, No rebound; audible bowel sounds Extremities: No clubbing, No cyanosis, No significant edema Neurologic/Psychiatric: oriented x 3, other (moves all limbs equally) Skin: normal color, warm/dry; No rash on exposed areas, No ulcerations on exposed areas Results/Procedures: Labs Laboratory Tests 08/16/22 06:15: White Blood Count 11.1H, Red Blood Count 2.71L, Hemoglobin 7.2L, Hematocrit 24L, Mean Corpuscular Volume 87, Mean Corpuscular Hemoglobin 27, Mean Corpuscular Hemoglobin Concent 31L, Red Cell Distribution Width 16.5H, Platelet Count 344, Mean Platelet Volume 9.8, Immature Granulocyte % (Auto) 4, Neutrophils (%) (Auto) 70, Lymphocytes (%) (Auto) 6L, Monocytes (%) (Auto) 15H, Eosinophils (%) (Auto) 4, Basophils (%) (Auto) 1, Neutrophils # (Auto) 7.8, Lymphocytes # (Auto) 0.7L, Monocytes # (Auto) 1.7H, Eosinophils # (Auto) 0.4H, Basophils # (Auto) 0.1, Immature Granulocyte # (Auto) 0.4H, Sodium Level 128L, Potassium Level 4.0, Chloride Level 94L, Carbon Dioxide Level 25, Anion Gap 9, Blood Urea Nitrogen 18, Creatinine 1.10, Estimat Glomerular Filtration Rate 49, BUN/Creatinine Ratio 16, Glucose Level 109H, Calcium Level 9.0, Corrected Calcium 10.3H, Total Bilirubin 0.4, Aspartate Amino Transf (AST/SGOT) 95H, Alanine Aminotransferase (ALT/SGPT) 41, Alkaline Phosphatase 196H, Total Protein 6.0L, Albumin 2.4L Microbiology 08/13/22 Blood Culture - Preliminary, Resulted No growth 08/13/22 Urine Culture - Final, Complete Klebsiella pneumoniae A/P: Assessment: Profound gen weakness - likely related to multiple comorbidities noted below Recently diagnosed lymphoma (late 2021) - managed by Dr Bustos - CTA of the abd on 08-14-22: Significant abdominal and pelvic lymphadenopathy in keeping with the patient's diagnosis of lymphoma. A jose mass does appear to produce extrinsic compression upon the left ureter in the the proximal to midportion producing moderate left sided hydroureteronephrosis. 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 Normal right heart pressures and normal global left ventricular systolic function with an ejection fraction of 55% per cardiac catheterization of September 2011. - Echocardiogram from 04-14-22 showed LVEF 50-55%; LA mildly dilated; Mild AoR. PASP 35-40 mmHg - MPI 04-25-22: The study is indicative of a small to moderate sized apical infarction without significant ischemia. Apical akinesis. Well preserved global left ventricular systolic function with a calculated ejection fraction of 59%. 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 - No evidence of significant renal artery stenosis on CT angiography of June 2005. Hyperlipidemia - being treated with atorvastatin which is followed by Dr. Hurst Impaired fasting glucose - managed by pcp Fibromyalgia and chronic backache and degenerative joint disease and fatigue. Ortho - Status post laparoscopic surgery on the left knee. - History of hip replacement surgery. - S/P left knee replacement in Mar 2019 Gastroesophageal reflux. - managed by PCP Abnormal ECG - Chronic early repolarization on surface electrocardiography. - ECG on 12/26/17: NSR with isolated PVCs, baseline artifact Carotid dz - Mild carotid arterial disease on ultrasonography of 11-18-20 Sleep apnea - for which she is on CPAP tx CKD 3b Plan: * Complex management due to multiple comorbidities * She seems to have decided on conservative management only - family and patient are waiting to discuss consideration of palliative care * Purely from a cardiac standpoint, OAC is indicated. Please resume when OK from the standpoint of Med and Heme/Onc svces * S/P 1 unit PRBC * Continue anti-htn regimen * Replenish K * Monitor labs DUTCH MONTOYA Aug 15, 2022 11:05
[2022-08-15 11:25] VITALS: BP 133/65
--- NOTE | 2022-08-15 11:56 | Progress Note ---
VALE FLORES 08/15/22 1155: Subjective Subjective/Events-last exam Ms. Yao is an 86 y/o female with a PMHx of lymphoma, GERD, CAD, HTN, sleep apnea, gout, PAF, and depression who has been admitted to the Hospitalist service for management of anemia and sepsis secondary to UTI. Patient has concurrent diagnosis of lymphoma and is being followed by Dr. Bustos. The patient is resting during the initial encounter. When rounding with Dr. Sam the patient is resting in bed with significant abdominal pain. The patient has elected to proceed with comfort/Hospice care at [facility]. The patient's Hgb today is 7.5, will plan to proceed with transfusion of 1 unit of PRBC for stabilization prior to transitioning care to [facility]. Review of Systems Gastrointestinal: Abdominal Pain (diffuse) Focused Exam Lactate Level 08/13/22 08:16: Lactic Acid Level 2.35*H 08/13/22 10:36: Lactic Acid Level 2.67*H 08/13/22 12:46: Lactic Acid Level 2.50*H Objective Exam Last Set of Vital Signs Vital Signs Date Time Temp Pulse Resp B/P (MAP) Pulse Ox O2 Delivery O2 Flow Rate FiO2 08/15/22 11:25 36.9 75 18 133/65 (87) 92 Room Air 08/15/22 09:50 4.00 Capillary Refill : Less Than 3 Seconds I&O Intake and Output 08/15/22 00:00 Intake Total 1650 ml Output Total 1550 ml Balance 100 ml Intake Oral 900 ml IV Total 750 ml Output Urine Total 1550 ml General: Other (patient is resting at time of initial encounter. When rounding with Dr. Sam, patient is resting in bed with significant abdominal pain) Psych/Mental Status: Mental Status NL Results/Procedures Lab Laboratory Tests 08/14/22 12:19: Lab Scanned Report Transfusion Reaction Form 08/15/22 06:15: White Blood Count 12.3H, Red Blood Count 2.78L, Hemoglobin 7.5L, Hematocrit 24L, Mean Corpuscular Volume 88, Mean Corpuscular Hemoglobin 27, Mean Corpuscular Hemoglobin Concent 31L, Red Cell Distribution Width 16.1H, Platelet Count 331, Mean Platelet Volume 9.6, Immature Granulocyte % (Auto) 3, Neutrophils (%) (Auto) 72, Lymphocytes (%) (Auto) 7L, Monocytes (%) (Auto) 15H, Eosinophils (%) (Auto) 3, Basophils (%) (Auto) 1, Neutrophils # (Auto) 8.8H, Lymphocytes # (Auto) 0.8L, Monocytes # (Auto) 1.9H, Eosinophils # (Auto) 0.4H, Basophils # (Auto) 0.1, Immature Granulocyte # (Auto) 0.4H, Sodium Level 130L, Potassium Level 3.9, Chloride Level 96L, Carbon Dioxide Level 24, Anion Gap 10, Blood Urea Nitrogen 16, Creatinine 1.04, Estimat Glomerular Filtration Rate 52, BUN/Creatinine Ratio 15, Glucose Level 127H, Calcium Level 8.9, Corrected Calcium 10.2H, Total Bilirubin 0.5, Aspartate Amino Transf (AST/SGOT) 152H, Alanine Aminotransferase (ALT/SGPT) 46, Alkaline Phosphatase 226H, Total Protein 6.1L, Albumin 2.4L Microbiology 08/13/22 Blood Culture - Preliminary, Resulted No growth 08/13/22 Urine Culture - Final, Complete Klebsiella pneumoniae Radiology NAME: DAISHA YAO [facility] REC#: [id number] PT STATUS: ADM IN : 1935 PHYSICIAN: ABEL BUSTOS MD ADMIT DATE: 08/13/22 Draft Date of Exam:08/14/22 CT ABDOMEN/PELVIS W WO PROCEDURE: CT abdomen and pelvis with and without contrast. TECHNIQUE: Precontrast acquisitions were acquired through the abdomen and pelvis. Multiple contiguous axial images were obtained through the abdomen and pelvis after the administration of intravenous contrast. Auto Exposure Controls were utilized during the CT exam to meet ALARA standards for radiation dose reduction. INDICATION: Lymphoma progression and abdominal pain. COMPARISON: No prior studies are available for comparison. FINDINGS: There are trace bilateral pleural effusions and bibasilar atelectasis. There is a calcified granuloma in the left lower lobe. No discrete liver mass is detected. The gallbladder is surgically absent. The pancreas and spleen are unremarkable. No adrenal mass is identified. There is significant upper abdominal lymphadenopathy. There is significant bulky lymphadenopathy in the retroperitoneum. An aortocaval mass at the level of the upper pole of the kidneys measures approximately 7.6 x 4.4 cm. A left periaortic jose mass is 3.7 cm in transverse diameter. There are some enlarged lymph nodes in the ximena hepatis and portacaval regions as well. A jose mass anterior to the left psoas muscle at the level of the left common iliac artery appears to obstruct the left ureter and produces moderate left-sided hydroureteronephrosis. This jose mass measures 4.1 x 4.1 cm. There are some enlarged lymph nodes in the right common iliac region as well. No significant enlarged lymph nodes in the inguinal regions or obturator regions are seen. The bladder is decompressed. The aorta is calcified but nonaneurysmal. Bowel loops are of normal caliber. No significant ascites is seen. The uterus is surgically absent. There is a large amount of artifact through the pelvis from the right hip prosthesis. IMPRESSION: 1. Trace bilateral pleural effusions with bibasilar atelectasis. 2. Significant abdominal and pelvic lymphadenopathy in keeping with the patient's diagnosis of lymphoma. A jose mass does appear to produce extrinsic compression upon the left ureter in the the proximal to midportion producing moderate left sided hydroureteronephrosis. Dictated on workstation # [id number] Dict: 08/14/22 0933 Trans: 08/14/22 0946 [id number] Interpreted by: HELENA HEAD MD Electronically signed by: Assessment/Plan Assessment/Plan (1) Sepsis Status: Acute Assessment & Plan: -Sepsis secondary to UTI -Continue Rocephin 1gm IV qd for 5 days -UA sent for culture -Monitor urine output -Closely monitor vitals Qualifiers: Qualified Codes: A41.9 - Sepsis, unspecified organism (2) Anemia Status: Acute Assessment & Plan: 08/14: Hgb 8.9 s/p transfusion of 1 unit of PRBC. Continue to monitor Hgb with AM CBC and appreciate plan per lymphoma diagnosis 08/15: Hgb of 7.5. Transfuse with 1 unit of PRBC. Repeat Hgb/Hct 2 hours post- transfusion. AM CBC Qualifiers: Qualified Codes: D64.9 - Anemia, unspecified (3) Urinary tract infection Status: Acute Assessment & Plan: -Likely cause of sepsis - appreciate plan per Sepsis diagnosis Qualifiers: Qualified Codes: N39.0 - Urinary tract infection, site not specified (4) Lymphoma Assessment & Plan: -Appreciate plan per Heme/Onc -> transitioning to comfort/Hospice care at [facility] -Xanax 0.25 mg PO Q8H PRN for anxiety management -Pain control with morphine 2mg Q2H PRN, oxycodone 10mg Q4H PRN -Continue to monitor Hgb with AM CBC and monitoring of symptoms, appreciate plan per anemia diagnosis -PT/OT services to increase strength/stability and for position changes/off- loading (5) Lactic acidosis Status: Acute Assessment & Plan: Lactic acidosis likely secondary to sepsis -Continue to treat UTI -Lactate is trending down, continue to monitor -No other identifiable cause of lactic acidosis at this time (6) Sleep apnea Status: Chronic Assessment & Plan: Chronic sleep apnea -Patient's family are bringing the patient's CPAP for nighttime use (7) Hypokalemia Status: Acute Assessment & Plan: Hypokalemia with K of 3.3 on 08/14 -Monitor with AM BMP -KCl 20meq PO qd (8) Hyponatremia Status: Acute Assessment & Plan: Hyponatremia with Na of 130 on 08/14 -Monitor with AM BMP -Consider hypertonic saline as treatment if Na <130 (9) 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 Status: Chronic Assessment & Plan: -Appreciate plan per cardiology -Continue to monitor BP -Resume home medications (10) Atrial fibrillation Status: Chronic Assessment & Plan: -Appreciate plan per Cardiology -Hold Eliquis 5mg PO BID, appreciate plan per Heme/Onc Qualifiers: Qualified Codes: I48.0 - Paroxysmal atrial fibrillation (11) Generalized weakness Status: Acute Assessment & Plan: Likely secondary to anemia, appreciate plan per lymphoma diagnosis CAROL SAM MD 08/15/22 4617: Supervisory-Addendum Brief Supervisory Addendum Verification and Attestation of Medical Student E/M Service A medical student performed and documented this service in my presence. I reviewed and verified all information documented by the medical student and made modifications to such information, when appropriate. I personally performed the physical exam and medical decision making. Carol Sam, Aug 15, 2022,16:44 Sepsis: Resolved UTI - Continue IV antibiotics for 5 day course, PO hydration Suspected Lymphoma Retroperitoneal Lymphadenopathy Uncontrolled Pain - Dr Bustos consulted, significant increase in tumor burden since last scan - Patient and family has elected to pursue Hospice care at SNF, family looking into facility - Started on Oxy ER and IR to get better control of pain Anemia - Continue to monitor FLORES,VALE Aug 15, 2022 11:55 CAROL SAM MD Aug 15, 2022 16:47
--- NOTE | 2022-08-15 12:58 | Occ Therapy Progress Note ---
Therapy Progress Note Pt declined OT today due to pain. Family present. PIERSON will attempt tomorrow a.m. 1 ref ZAMZAM GONZALES Aug 15, 2022 12:58
[2022-08-15 15:56] VITALS: BP 133/58
[2022-08-15 19:06] VITALS: BP 141/65
--- NOTE | 2022-08-15 20:31 | Physician Query Clarification ---
Physician Query-General Query to Physician: The medical record reflects the following clinical scenario: History/Risk factors: Advanced age, Lymphoma, sepsis, Anemia Clinical Findings: RR on admission 18, has been as high as 24, Supplemental 02 on 2 L on admission, Has been as high as 6 L, lowest O2 sat recorded was 90% on 4 L (P/F=167) this was recorded multiple times, shortness of air with exertion documented on admission, Treatment: MAT protocol, continue to titrate oxygen as tolerated, restarted home inhalers. Question: Is Acute Respiratory Failure a clinically valid diagnosis? Acute Respiratory Failure was documented in the attending progress note from 07/14/2023 with no further documentation of Acute Respiratory Failure in the medical record. If yes, please document in the Progress Notes and Discharge Summary. 1. Yes, Acute Hypoxic Respiratory Failure is clinically valid, condition resolving 2. No, Acute Hypoxic Respiratory Failure ruled out 3. Other, with explanation of clinical findings 4. Undetermined, no explanation for clinical findings In responding to this query, please exercise your independent professional judgment. The purpose of this communication is to more accurately reflect the complexity of your patients condition. The fact that a question is asked does not imply that any particular answer is desired or expected. Thank you for your timely response to this clarification. Krysta Carlos MSN, RN Clinical Cesspool Cleaner [email or web address] you have PHYSICIAN RESPONSE: Based on the clinical findings in the record, please respond to the query above on this document as an addendum. Physician Response: Physician Response Yes Acute Respiratory failure is appropriate, it is not clinically resolving but stable as patient is getting dced on hospice If you have questions please contact: Automatic Lathe Setter: Ext: Thank you for your time and cooperation. Clinical Cesspool Cleaner/Automatic Lathe Setter This is a permanent part of the medical record KRYSTA CARLOS Aug 15, 2022 20:31 CAROL SAM MD Aug 17, 2022 18:47
[2022-08-15] MEDS: amLODIPine 5 MG (NORVASC) TAB PO SCH (20:59)
[2022-08-15] MEDS: oxyCODONE ER 10 MG (OxyCONTIN CR) TAB PO SCH (21:00)
[2022-08-15] MEDS: DULoxetine 30 MG (CYMBALTA) CAP PO SCH (21:00)
[2022-08-15 23:09] VITALS: BP 127/74
[2022-08-16] MEDS: cefTRIAXone 1 GM IV (PRE-MIX) 50 ML IV SCH (03:12)
[2022-08-16 03:16] VITALS: BP 145/75
[2022-08-16 06:23] LABS: BASOPHILS # (AUTO) 0.1 10^3/uL (0.0-0.1); BASOPHILS % (AUTO) 1 % (0-10); EOSINOPHILS # (AUTO) 0.4 10^3/uL (0.0-0.3); EOSINOPHILS % (AUTO) 4 % (0-10); HEMATOCRIT 24 % (35-52); HEMOGLOBIN 7.2 g/dL (11.5-16.0); LYMPHOCYTES # (AUTO) 0.7 10^3/uL (1.0-4.0); LYMPHOCYTES % (AUTO) 6 % (12-44); MEAN CORPUSCULAR HEMOGLOBIN 27 pg (25-34); MEAN CORPUSCULAR HGB CONC 31 g/dL (32-36); MEAN CORPUSCULAR VOLUME 87 fL (80-99); MEAN PLATELET VOLUME 9.8 fL (9.0-12.2); MONOCYTES # (AUTO) 1.7 10^3/uL (0.0-1.0); MONOCYTES % (AUTO) 15 % (0-12); NEUTROPHILS # (AUTO) 7.8 10^3/uL (1.8-7.8); NEUTROPHILS % (AUTO) 70 % (42-75); PLATELET COUNT 344 10^3/uL (130-400); WHITE BLOOD COUNT 11.1 10^3/uL (4.3-11.0)
[2022-08-16] MEDS: ALPRAZolam 0.25 MG (XANAX) TAB PO SCH ×3 (06:31→23:26)
[2022-08-16 06:48] LABS: ALBUMIN 2.4 GM/DL (3.2-4.5)
[2022-08-16 06:53] LABS: BILIRUBIN,TOTAL 0.4 MG/DL (0.1-1.0)
[2022-08-16 06:55] LABS: CREATININE SERUM 1.1 MG/DL (0.60-1.30)
[2022-08-16 07:11] VITALS: BP 132/58
[2022-08-16] MEDS: PANTOPRAZOLE 40 MG (PROTONIX) VIAL IV SCH (08:10)
[2022-08-16] MEDS: ALLOPURINOL 300 MG (ZYLOPRIM) TAB PO SCH (08:10)
[2022-08-16] MEDS: SENNOSIDES 8.6 MG (SENOKOT) TAB PO SCH ×2 (08:10→20:09)
[2022-08-16] MEDS: DOCUSATE SODIUM 100 MG (COLACE) CAP PO SCH ×2 (08:10→20:08)
[2022-08-16] MEDS: oxyCODONE ER 10 MG (OxyCONTIN CR) TAB PO SCH ×2 (08:10→20:09)
[2022-08-16] MEDS: RT--FLUTICASONE/SALMETEROL 232-14 (AIRDUO RespiCLICK) IH SCH ×2 (09:26→21:48)
--- NOTE | 2022-08-16 10:35 | Physical Therapy Progress Note ---
Therapy Progress Note Physical therapy tx attempted. Patient is in bed sleeping. Family member declines therapy saying that patient is too tired/lethargic, says "there is no way she can do that today". Will check back tomorrow. SILVIANO COTTRELL PT Aug 16, 2022 10:35
[2022-08-16 11:21] VITALS: BP 135/60
--- NOTE | 2022-08-16 12:49 | Progress Note ---
VALE FLORES 08/16/22 1249: Subjective Subjective/Events-last exam Ms. Yao is an 86 y/o female with a PMHx of lymphoma, GERD, CAD, HTN, sleep apnea, gout, PAF, and depression who has been admitted to the Hospitalist service for management of anemia and sepsis secondary to UTI. Patient has concurrent diagnosis of lymphoma and is being followed by Dr. Bustos. During the encounter the patient is resting with her CPAP, family is present bedside. The patient's family is arranging placement to a nursing facility for comfort/Hospice care. Will continue to manage the patient's pain and assist family during this time. Review of Systems Unable to obtain Focused Exam Lactate Level 08/13/22 12:46: Lactic Acid Level 2.50*H Objective Exam Last Set of Vital Signs Vital Signs Date Time Temp Pulse Resp B/P (MAP) Pulse Ox O2 Delivery O2 Flow Rate FiO2 08/16/22 11:21 36.4 73 16 135/60 (85) 92 Nasal Cannula 4.00 Capillary Refill : Less Than 3 Seconds I&O Intake and Output 08/16/22 00:00 Intake Total 1160 ml Output Total 700 ml Balance 460 ml Intake Oral 1110 ml IV Total 50 ml Output Urine Total 700 ml # Voids 1 General: Other (resting in bed with CPAP) Results/Procedures Lab Laboratory Tests 08/16/22 06:15: White Blood Count 11.1H, Red Blood Count 2.71L, Hemoglobin 7.2L, Hematocrit 24L, Mean Corpuscular Volume 87, Mean Corpuscular Hemoglobin 27, Mean Corpuscular Hemoglobin Concent 31L, Red Cell Distribution Width 16.5H, Platelet Count 344, Mean Platelet Volume 9.8, Immature Granulocyte % (Auto) 4, Neutrophils (%) (Auto) 70, Lymphocytes (%) (Auto) 6L, Monocytes (%) (Auto) 15H, Eosinophils (%) (Auto) 4, Basophils (%) (Auto) 1, Neutrophils # (Auto) 7.8, Lymphocytes # (Auto) 0.7L, Monocytes # (Auto) 1.7H, Eosinophils # (Auto) 0.4H, Basophils # (Auto) 0.1, Immature Granulocyte # (Auto) 0.4H, Sodium Level 128L, Potassium Level 4.0, Chloride Level 94L, Carbon Dioxide Level 25, Anion Gap 9, Blood Urea Nitrogen 18, Creatinine 1.10, Estimat Glomerular Filtration Rate 49, BUN/Creatinine Ratio 16, Glucose Level 109H, Calcium Level 9.0, Corrected Calcium 10.3H, Total Bilirubin 0.4, Aspartate Amino Transf (AST/SGOT) 95H, Alanine Aminotransferase (ALT/SGPT) 41, Alkaline Phosphatase 196H, Total Protein 6.0L, Albumin 2.4L Microbiology 08/13/22 Blood Culture - Preliminary, Resulted No growth 08/13/22 Urine Culture - Final, Complete Klebsiella pneumoniae Radiology NAME: DAISHA YAO [facility] REC#: [id number] PT STATUS: ADM IN : 1935 PHYSICIAN: ABEL BUSTOS MD ADMIT DATE: 08/13/22 Draft Date of Exam:08/14/22 CT ABDOMEN/PELVIS W WO PROCEDURE: CT abdomen and pelvis with and without contrast. TECHNIQUE: Precontrast acquisitions were acquired through the abdomen and pelvis. Multiple contiguous axial images were obtained through the abdomen and pelvis after the administration of intravenous contrast. Auto Exposure Controls were utilized during the CT exam to meet ALARA standards for radiation dose reduction. INDICATION: Lymphoma progression and abdominal pain. COMPARISON: No prior studies are available for comparison. FINDINGS: There are trace bilateral pleural effusions and bibasilar atelectasis. There is a calcified granuloma in the left lower lobe. No discrete liver mass is detected. The gallbladder is surgically absent. The pancreas and spleen are unremarkable. No adrenal mass is identified. There is significant upper abdominal lymphadenopathy. There is significant bulky lymphadenopathy in the retroperitoneum. An aortocaval mass at the level of the upper pole of the kidneys measures approximately 7.6 x 4.4 cm. A left periaortic jose mass is 3.7 cm in transverse diameter. There are some enlarged lymph nodes in the ximena hepatis and portacaval regions as well. A jose mass anterior to the left psoas muscle at the level of the left common iliac artery appears to obstruct the left ureter and produces moderate left-sided hydroureteronephrosis. This jose mass measures 4.1 x 4.1 cm. There are some enlarged lymph nodes in the right common iliac region as well. No significant enlarged lymph nodes in the inguinal regions or obturator regions are seen. The bladder is decompressed. The aorta is calcified but nonaneurysmal. Bowel loops are of normal caliber. No significant ascites is seen. The uterus is surgically absent. There is a large amount of artifact through the pelvis from the right hip prosthesis. IMPRESSION: 1. Trace bilateral pleural effusions with bibasilar atelectasis. 2. Significant abdominal and pelvic lymphadenopathy in keeping with the patient's diagnosis of lymphoma. A jose mass does appear to produce extrinsic compression upon the left ureter in the the proximal to midportion producing moderate left sided hydroureteronephrosis. Dictated on workstation # [id number] Dict: 08/14/22 0933 Trans: 08/14/22 0946 [id number] Interpreted by: HELENA HEAD MD Electronically signed by: Assessment/Plan Assessment/Plan (1) Sepsis Status: Acute Assessment & Plan: -Sepsis secondary to UTI -Continue Rocephin 1gm IV qd for 5 days -UA sent for culture -Monitor urine output -Closely monitor vitals Qualifiers: Qualified Codes: A41.9 - Sepsis, unspecified organism (2) Anemia Status: Acute Assessment & Plan: 08/14: Hgb 8.9 s/p transfusion of 1 unit of PRBC. Continue to monitor Hgb with AM CBC and appreciate plan per lymphoma diagnosis 08/15: Hgb of 7.5. 08/16: Hgb of 7.2. Transfuse with 1 unit of PRBC. Repeat Hgb/Hct 2 hours post- transfusion. AM CBC Qualifiers: Qualified Codes: D64.9 - Anemia, unspecified (3) Urinary tract infection Status: Acute Assessment & Plan: -Likely cause of sepsis - appreciate plan per Sepsis diagnosis Qualifiers: Qualified Codes: N39.0 - Urinary tract infection, site not specified (4) Lymphoma Assessment & Plan: -Appreciate plan per Heme/Onc -> transitioning to comfort/Hospice care at [facility] -Xanax 0.25 mg PO Q8H PRN for anxiety management -Pain control with morphine 2mg Q2H PRN, oxycodone 10mg Q4H PRN -Continue to monitor Hgb with AM CBC and monitoring of symptoms, appreciate plan per anemia diagnosis -08/16: Discontinue PT/OT for comfort care measures and pain management (5) Lactic acidosis Status: Resolved Assessment & Plan: Lactic acidosis likely secondary to sepsis -Continue to treat UTI -Lactate is trending down, continue to monitor -No other identifiable cause of lactic acidosis at this time (6) Sleep apnea Status: Chronic Assessment & Plan: Chronic sleep apnea -Patient's family are bringing the patient's CPAP for nighttime use (7) Hypokalemia Status: Resolved Assessment & Plan: Hypokalemia with K of 3.3 on 08/14 -Monitor with AM BMP -KCl 20meq PO qd 08/16: K of 4.0 - resolved. Continue to monitor with AM BMP (8) Hyponatremia Status: Acute Assessment & Plan: Hyponatremia with Na of 130 on 08/14 -Monitor with AM BMP -Consider hypertonic saline as treatment if Na <130 08/16: Na 128. Continue to monitor and encourage PO intake. Likely secondary to hypovolemia (9) 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 Status: Chronic Assessment & Plan: -Appreciate plan per cardiology -Continue to monitor BP -Resume home medications (10) Atrial fibrillation Status: Chronic Assessment & Plan: -Appreciate plan per Cardiology -Hold Eliquis 5mg PO BID, appreciate plan per Heme/Onc Qualifiers: Qualified Codes: I48.0 - Paroxysmal atrial fibrillation (11) Generalized weakness Status: Acute Assessment & Plan: Likely secondary to anemia, appreciate plan per lymphoma diagnosis CAROL SAM MD 08/16/22 1616: Supervisory-Addendum Brief Supervisory Addendum Verification and Attestation of Medical Student E/M Service A medical student performed and documented this service in my presence. I reviewed and verified all information documented by the medical student and made modifications to such information, when appropriate. I personally performed the physical exam and medical decision making. Carol Sam, Aug 16, 2022,16:12 Sepsis: Resolved UTI - Continue IV antibiotics for 5 day course, PO hydration, 08/16: will complete antibiotics tomorrow, continue PO hydration Suspected Lymphoma Retroperitoneal Lymphadenopathy Uncontrolled Pain - Dr Bustos consulted, significant increase in tumor burden since last scan - Patient and family has elected to pursue Hospice care at SNF, family looking into facility - Started on Oxy ER and IR to get better control of pain, 08/16: pain seems to be better controlled, patient is having some itching Anemia - Continue to monitor, 08/16: Trended down, no signs of overt bleeding, may re quire transfusion in AM VALE FLORES Aug 16, 2022 12:49 CAROL SAM MD Aug 16, 2022 16:16
--- NOTE | 2022-08-16 13:58 | Occ Therapy Progress Note ---
Therapy Progress Note Per family, pt is in a lot of pain and son requested that PIERSON not see pt today. Son wants PIERSON to check on pt tomorrow. 1 Refusal [id number] ZAMZAM GONZALES Aug 16, 2022 13:58
[2022-08-16 15:57] VITALS: BP 136/61
[2022-08-16 19:30] VITALS: BP 139/64
[2022-08-16] MEDS: DULoxetine 30 MG (CYMBALTA) CAP PO SCH (20:08)
[2022-08-16] MEDS: amLODIPine 5 MG (NORVASC) TAB PO SCH (20:08)
[2022-08-16] MEDS: PANTOPRAZOLE 40 MG (PROTONIX) TAB PO SCH (20:08)
[2022-08-16] MEDS ORDERED: diphenhydrAMINE 25 MG TAB (BENADRYL) PO PRN (21:00)
[2022-08-16 23:26] VITALS: BP 148/76
[2022-08-17] MEDS: cefTRIAXone 1 GM IV (PRE-MIX) 50 ML IV SCH (03:08)
[2022-08-17 03:09] VITALS: BP 142/62
[2022-08-17 05:49] LABS: BASOPHILS # (AUTO) 0.1 10^3/uL (0.0-0.1); BASOPHILS % (AUTO) 1 % (0-10); EOSINOPHILS # (AUTO) 0.4 10^3/uL (0.0-0.3); EOSINOPHILS % (AUTO) 3 % (0-10); HEMATOCRIT 23 % (35-52); LYMPHOCYTES # (AUTO) 0.9 10^3/uL (1.0-4.0); LYMPHOCYTES % (AUTO) 7 % (12-44); MEAN CORPUSCULAR HEMOGLOBIN 26 pg (25-34); MEAN CORPUSCULAR HGB CONC 30 g/dL (32-36); MEAN CORPUSCULAR VOLUME 87 fL (80-99); MONOCYTES # (AUTO) 1.8 10^3/uL (0.0-1.0); MONOCYTES % (AUTO) 14 % (0-12); NEUTROPHILS # (AUTO) 8.8 10^3/uL (1.8-7.8); NEUTROPHILS % (AUTO) 70 % (42-75); PLATELET COUNT 366 10^3/uL (130-400); WHITE BLOOD COUNT 12.5 10^3/uL (4.3-11.0)
[2022-08-17 06:01] LABS: ALBUMIN 2.5 GM/DL (3.2-4.5)
[2022-08-17 06:02] LABS: POTASSIUM 4.3 MMOL/L (3.6-5.0)
[2022-08-17 06:03] LABS: CALCIUM 9.4 MG/DL (8.5-10.1)
[2022-08-17 06:04] LABS: TOTAL PROTEIN 6.3 GM/DL (6.4-8.2)
[2022-08-17 06:06] LABS: BILIRUBIN,TOTAL 0.5 MG/DL (0.1-1.0)
[2022-08-17 06:08] LABS: CREATININE SERUM 1.11 MG/DL (0.60-1.30)
[2022-08-17] MEDS: RT--FLUTICASONE/SALMETEROL 232-14 (AIRDUO RespiCLICK) IH SCH ×2 (07:18→21:45)
[2022-08-17 07:59] VITALS: BP 129/78
[2022-08-17] MEDS: ALLOPURINOL 300 MG (ZYLOPRIM) TAB PO SCH (08:30)
[2022-08-17] MEDS: ALPRAZolam 0.25 MG (XANAX) TAB PO SCH ×3 (08:30→21:13)
[2022-08-17] MEDS: DOCUSATE SODIUM 100 MG (COLACE) CAP PO SCH ×2 (08:30→20:51)
[2022-08-17] MEDS: oxyCODONE ER 10 MG (OxyCONTIN CR) TAB PO SCH ×2 (08:30→20:51)
[2022-08-17] MEDS: PANTOPRAZOLE 40 MG (PROTONIX) TAB PO SCH ×2 (08:30→20:51)
[2022-08-17] MEDS: SENNOSIDES 8.6 MG (SENOKOT) TAB PO SCH ×2 (08:30→20:51)
--- NOTE | 2022-08-17 10:12 | Physical Therapy Daily Note ---
PT Daily Note-Current Subjective Patient much more alert on this date. Agrees to PT. Pain Section J - Health Conditions 1. Rarely or not at all 2. Occasionally 3. Frequently 4. Almost constantly 8. Unable to answer Pain Effect on Sleep: 3 Pain Interference with Therapy: 3 Pain Interference w/Day-to-Day: 3 Mental Status Patient Orientation: Person, Time, Situation Attachments: Oxygen Transfers SCALE: Activities may be completed with or without assistive devices. 0-Sdpbuzngfv-ajpolyj completes the activity by him/herself with no assistance from a helper. 5-Set-up or Clean-up Assistance-helper sets up or cleans up; patient completes activity. Bruning assists only prior to or following the activity. 4-Supervision or Touching Assistance-helper provides verbal cues and/or touching/steadying and/or contact guard assistance as patient completes activity. Assistance may be provided throughout the activity or intermittently. 3-Partial/Moderate Assistance-helper does LESS THAN HALF the effort. Bruning lifts, holds or supports trunk or limbs, but provides less than half the effort. 2-Substantial/Maximal Assistance-helper does MORE THAN HALF the effort. Bruning lifts or holds trunk or limbs and provides more than half the effort. 6-Bsimlrnta-pztmrd does ALL the effort. Patient does none of the effort to co mplete the activity. Or, the assistance of 2 or more helpers is required for the patient to complete the activity. If activity was not attempted, code reason: 7-Patient Refused. 9-Not Applicable-not attempted and the patient did not perform the activity before the current illness, exacerbation or injury. 10-Not Attempted due to Environmental Limitations-(lack of equipment, weather restraints, etc.). 88-Not Attempted due to Medical Conditions or Safety Concerns. Lying to Sitting/Side of Bed(Q: 3 Sit to Stand (QC): 3 Chair/Dtr-dp-Uzwds Xfer(QC): 3 Toilet Transfer (QC): 3 min to CGA for safety/PT assist to cleanse after incontinent urine Gait Training Distance: 10' x 2 Walk 10 feet (QC): 3 Gait Assistive Device: FWW shuffle gait sequence Assessment Patient tolerated treatment and is up in recliner with needs met. Daughter present. PT Detention Goals Detention Goals PT Detention Goals Time Frame: Aug 26, 2022 Roll Left & Right (QC): 6 Sit to Lying (QC): 6 Lying-Sitting on Side/Bed(QC): 6 Sit to Stand (QC): 6 Chair/Hgh-kj-Eoiqq Xfer(QC): 6 Toilet Transfer (QC): 6 Walk 10 feet (QC): 5 Walk 50ft with 2 Turns (QC): 5 Walk 150 ft (QC): 5 PT Plan Treatment/Plan Treatment Plan: Continue Plan of Care Treatment Plan: Bed Mobility, Education, Functional Activity Ramón, Functional Strength, Gait, Safety, Therapeutic Exercise, Transfers Treatment Duration: Aug 26, 2022 Frequency: 6 times per week Estimated Hrs Per Day: .25 hour per day Patient and/or Family Agrees t: Yes Time Time In: 830 Time Out: 853 DATE: Aug 17, 2022 Total Billed Treatment Time: 23 Total Billed Treatment 1 visit FA x 2 23 min JOSÉ ANTONIO HORAN PT Aug 17, 2022 10:12
[2022-08-17 11:47] VITALS: BP 110/67
--- NOTE | 2022-08-17 13:12 | Progress Note ---
VALE FLORES 08/17/22 1312: Subjective Subjective/Events-last exam Ms. Yao is an 86 y/o female with a PMHx of lymphoma, GERD, CAD, HTN, sleep apnea, gout, PAF, and depression who has been admitted to the Hospitalist service for management of anemia and sepsis secondary to UTI. Patient has concurrent diagnosis of lymphoma and is being followed by Dr. Bustos. The patient reports adequate pain control at time of encounter. The patient was up to the commode and to the shower this morning. At time of encounter patient was resting comfortably in bed with supplemental O2. The patient's family reports they are bringing up CPAP equipment since they are unable to find the missing clip at this time. Plan is to transition patient to nursing facility for Hospice care on 08/18 or 08/19. Review of Systems General: Fatigue Gastrointestinal: Abdominal Pain Unable to obtain Objective Exam Last Set of Vital Signs Vital Signs Date Time Temp Pulse Resp B/P (MAP) Pulse Ox O2 Delivery O2 Flow Rate FiO2 08/17/22 11:47 36.5 75 18 110/67 (81) 92 High Flow N/C 6.00 Capillary Refill : Less Than 3 Seconds I&O Intake and Output 08/17/22 00:00 Intake Total 900 ml Output Total 600 ml Balance 300 ml Intake Oral 850 ml IV Total 50 ml Output Urine Total 600 ml General: Other (resting in bed with supplemental O2) Results/Procedures Lab Laboratory Tests 08/17/22 05:32: White Blood Count 12.5H, Red Blood Count 2.67L, Hemoglobin 7.0L, Hematocrit 23L, Mean Corpuscular Volume 87, Mean Corpuscular Hemoglobin 26, Mean Corpuscular Hemoglobin Concent 30L, Red Cell Distribution Width 16.5H, Platelet Count 366, Mean Platelet Volume 10.0, Immature Granulocyte % (Auto) 5, Neutrophils (%) (Auto) 70, Lymphocytes (%) (Auto) 7L, Monocytes (%) (Auto) 14H, Eosinophils (%) (Auto) 3, Basophils (%) (Auto) 1, Neutrophils # (Auto) 8.8H, Lymphocytes # (A uto) 0.9L, Monocytes # (Auto) 1.8H, Eosinophils # (Auto) 0.4H, Basophils # ( Auto) 0.1, Immature Granulocyte # (Auto) 0.6H, Sodium Level 129L, Potassium Level 4.3, Chloride Level 94L, Carbon Dioxide Level 22, Anion Gap 13, Blood Urea Nitrogen 20H, Creatinine 1.11, Estimat Glomerular Filtration Rate 48, BUN/Creatinine Ratio 18, Glucose Level 119H, Calcium Level 9.4, Corrected Calcium 10.6H, Total Bilirubin 0.5, Aspartate Amino Transf (AST/SGOT) 119H, Alanine Aminotransferase (ALT/SGPT) 46, Alkaline Phosphatase 227H, Total Protein 6.3L, Albumin 2.5L Microbiology 08/13/22 Blood Culture - Preliminary, Resulted No growth 08/13/22 Urine Culture - Final, Complete Klebsiella pneumoniae Radiology NAME: DAISHA YAO [facility] REC#: [id number] PT STATUS: ADM IN : 1935 PHYSICIAN: ABEL BUSTOS MD ADMIT DATE: 08/13/22 Draft Date of Exam:08/14/22 CT ABDOMEN/PELVIS W WO PROCEDURE: CT abdomen and pelvis with and without contrast. TECHNIQUE: Precontrast acquisitions were acquired through the abdomen and pelvis. Multiple contiguous axial images were obtained through the abdomen and pelvis after the administration of intravenous contrast. Auto Exposure Controls were utilized during the CT exam to meet ALARA standards for radiation dose reduction. INDICATION: Lymphoma progression and abdominal pain. COMPARISON: No prior studies are available for comparison. FINDINGS: There are trace bilateral pleural effusions and bibasilar atelectasis. There is a calcified granuloma in the left lower lobe. No discrete liver mass is detected. The gallbladder is surgically absent. The pancreas and spleen are unremarkable. No adrenal mass is identified. There is significant upper abdominal lymphadenopathy. There is significant bulky lymphadenopathy in the retroperitoneum. An aortocaval mass at the level of the upper pole of the kidneys measures approximately 7.6 x 4.4 cm. A left periaortic jose mass is 3.7 cm in transverse diameter. There are some enlarged lymph nodes in the ximena hepatis and portacaval regions as well. A jose mass anterior to the left psoas muscle at the level of the left common iliac artery appears to obstruct the left ureter and produces moderate left-sided hydroureteronephrosis. This jose mass measures 4.1 x 4.1 cm. There are some enlarged lymph nodes in the right common iliac region as well. No significant enlarged lymph nodes in the inguinal regions or obturator regions are seen. The bladder is decompressed. The aorta is calcified but nonaneurysmal. Bowel loops are of normal caliber. No significant ascites is seen. The uterus is surgically absent. There is a large amount of artifact through the pelvis from the right hip prosthesis. IMPRESSION: 1. Trace bilateral pleural effusions with bibasilar atelectasis. 2. Significant abdominal and pelvic lymphadenopathy in keeping with the patient's diagnosis of lymphoma. A jose mass does appear to produce extrinsic compression upon the left ureter in the the proximal to midportion producing moderate left sided hydroureteronephrosis. Dictated on workstation # [id number] Dict: 08/14/22 0933 Trans: 08/14/22 0946 [id number] Interpreted by: HELENA HEAD MD Electronically signed by: Assessment/Plan Assessment/Plan (1) Sepsis Status: Acute Assessment & Plan: -Sepsis secondary to UTI -Continue Rocephin 1gm IV qd for 5 days -UA sent for culture -> culture has resulted and is sensitive to ceftriaxone -Monitor urine output -Closely monitor vitals Qualifiers: Qualified Codes: A41.9 - Sepsis, unspecified organism (2) Anemia Status: Acute Assessment & Plan: 08/14: Hgb 8.9 s/p transfusion of 1 unit of PRBC. Continue to monitor Hgb with AM CBC and appreciate plan per lymphoma diagnosis 08/15: Hgb of 7.5. 08/16: Hgb of 7.2. 08/17: Hgb 7.0. Transfuse with 1 unit of PRBC. Repeat Hgb/Hct 2 hours post-powell sfusion. AM CBC Qualifiers: Qualified Codes: D64.9 - Anemia, unspecified (3) Urinary tract infection Status: Acute Assessment & Plan: -Likely cause of sepsis - appreciate plan per Sepsis diagnosis Qualifiers: Qualified Codes: N39.0 - Urinary tract infection, site not specified (4) Lymphoma Assessment & Plan: -Appreciate plan per Heme/Onc -> transitioning to comfort/Hospice care at [facility] -Xanax 0.25 mg PO Q8H PRN for anxiety management -Pain control with morphine 2mg Q2H PRN, oxycodone 10mg Q4H PRN -Continue to monitor Hgb with AM CBC and monitoring of symptoms, appreciate plan per anemia diagnosis -08/16: Discontinue PT/OT for comfort care measures and pain management (5) Lactic acidosis Status: Resolved Assessment & Plan: Lactic acidosis likely secondary to sepsis -Continue to treat UTI -Lactate is trending down, continue to monitor -No other identifiable cause of lactic acidosis at this time (6) Sleep apnea Status: Chronic Assessment & Plan: Chronic sleep apnea -Patient's family are bringing the patient's CPAP for nighttime use -> supplemental O2 while the patient's family is bringing in CPAP equipment (7) Hypokalemia Status: Resolved Assessment & Plan: Hypokalemia with K of 3.3 on 08/14 -Monitor with AM BMP -KCl 20meq PO qd 08/16: K of 4.0 - resolved. Continue to monitor with AM BMP (8) Hyponatremia Status: Acute Assessment & Plan: Hyponatremia with Na of 130 on 08/14 -Monitor with AM BMP -Consider hypertonic saline as treatment if Na <130 08/16: Na 128. Continue to monitor and encourage PO intake. Likely secondary to hypovolemia (9) 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 Status: Chronic Assessment & Plan: -Appreciate plan per cardiology -Continue to monitor BP -Resume home medications (10) Atrial fibrillation Status: Chronic Assessment & Plan: -Appreciate plan per Cardiology -Hold Eliquis 5mg PO BID, appreciate plan per Heme/Onc Qualifiers: Qualified Codes: I48.0 - Paroxysmal atrial fibrillation (11) Generalized weakness Status: Acute Assessment & Plan: Likely secondary to anemia, appreciate plan per lymphoma diagnosis CAROL SAM MD 08/17/22 1845: Supervisory-Addendum Brief Supervisory Addendum Verification and Attestation of Medical Student E/M Service A medical student performed and documented this service in my presence. I reviewed and verified all information documented by the medical student and made modifications to such information, when appropriate. I personally performed the physical exam and medical decision making. Carol Sam, Aug 17, 2022,18:44 - Plan to d/c tomorrow/Sunday on Hospice - Pain better controlled with scheduled medications - PO diet as tolerated - Bipap PRN for comfort SANDRARICKYA Aug 17, 2022 13:12 CAROL SAM MD Aug 17, 2022 18:45
--- NOTE | 2022-08-17 13:22 | Occ Therapy Progress Note ---
Therapy Progress Note Pt family in room and stated that pt had shower this am and that it took 2 person assist to transfer her back to bed. Pt's family requested [facility] to check on pt tomorrow. 1 refusal:[phone] ZAMZAM GONZALES Aug 17, 2022 13:22
[2022-08-17 15:38] VITALS: BP 133/63
[2022-08-17] MEDS: ACETAMINOPHEN 500 MG TAB (TYLENOL) PO PRN (18:27)
[2022-08-17 20:33] VITALS: BP 129/62
[2022-08-17] MEDS: DULoxetine 30 MG (CYMBALTA) CAP PO SCH (20:51)
[2022-08-17] MEDS: amLODIPine 5 MG (NORVASC) TAB PO SCH (20:51)
[2022-08-18 00:04] VITALS: BP 134/63
[2022-08-18 03:06] VITALS: BP 145/65
[2022-08-18] MEDS: ALPRAZolam 0.25 MG (XANAX) TAB PO SCH (05:37)
[2022-08-18] MEDS: RT--FLUTICASONE/SALMETEROL 232-14 (AIRDUO RespiCLICK) IH SCH (07:32)
[2022-08-18 08:01] VITALS: BP 111/57
[2022-08-18] MEDS: ALLOPURINOL 300 MG (ZYLOPRIM) TAB PO SCH (08:17)
[2022-08-18] MEDS: PANTOPRAZOLE 40 MG (PROTONIX) TAB PO SCH (08:17)
[2022-08-18] MEDS: SENNOSIDES 8.6 MG (SENOKOT) TAB PO SCH (08:18)
[2022-08-18] MEDS: oxyCODONE ER 10 MG (OxyCONTIN CR) TAB PO SCH (08:18)
[2022-08-18] MEDS: DOCUSATE SODIUM 100 MG (COLACE) CAP PO SCH (08:18)
--- NOTE | 2022-08-18 10:34 | Discharge Summary ---
Diagnosis/Chief Complaint Date of Admission Aug 13, 2022 at 03:30 Date of Discharge 08/18/22 Admission Diagnosis Admission Diagnosis See problem list Discharge Diagnosis See below Problems/Diagnosis: (1) Lymphoma Assessment & Plan: -Appreciate plan per Heme/Onc -> transitioning to comfort/H[facility] care at [facility] -Xanax 0.25 mg PO Q8H PRN for anxiety management -Pain control with morphine 2mg Q2H PRN, oxycodone 10mg Q4H PRN -Continue to monitor Hgb with AM CBC and monitoring of symptoms, appreciate plan per anemia diagnosis -08/16: Discontinue PT/OT for comfort care measures and pain management -08/18: Patient to be D/c to [place] for hospice care, She is no longer seeking aggressive care for cancer diagnosis and has a life expectancy of 6 months or less Qualifiers: Qualified Codes: C85.93 - Non-hodgkin lymphoma, unspecified, intra-abdominal lymph nodes (2) Sepsis Assessment & Plan: -Sepsis secondary to UTI -Continue Rocephin 1gm IV qd for 5 days -UA sent for culture -> culture has resulted and is sensitive to ceftriaxone -Monitor urine output -Closely monitor vitals Qualifiers: Qualified Codes: A41.9 - Sepsis, unspecified organism Status: Resolved Resolution Date/Time: 08/17/22 @ 10:28 (3) Anemia Assessment & Plan: 08/14: Hgb 8.9 s/p transfusion of 1 unit of PRBC. Continue to monitor Hgb with AM CBC and appreciate plan per lymphoma diagnosis 08/15: Hgb of 7.5. 08/16: Hgb of 7.2. 08/17: Hgb 7.0. Transfuse with 1 unit of PRBC. Repeat Hgb/Hct 2 hours post- transfusion. AM CBC Qualifiers: Qualified Codes: D64.9 - Anemia, unspecified Status: Acute (4) Urinary tract infection Assessment & Plan: -Likely cause of sepsis - appreciate plan per Sepsis diagnosis Qualifiers: Qualified Codes: N39.0 - Urinary tract infection, site not specified Status: Acute (5) Lactic acidosis Assessment & Plan: Lactic acidosis likely secondary to sepsis -Continue to treat UTI -Lactate is trending down, continue to monitor -No other identifiable cause of lactic acidosis at this time Status: Resolved (6) Sleep apnea Assessment & Plan: Chronic sleep apnea -Patient's family are bringing the patient's CPAP for nighttime use -> supplemental O2 while the patient's family is bringing in CPAP equipment Status: Chronic (7) Hypokalemia Assessment & Plan: Hypokalemia with K of 3.3 on 08/14 -Monitor with AM BMP -KCl 20meq PO qd 08/16: K of 4.0 - resolved. Continue to monitor with AM BMP Status: Resolved (8) Hyponatremia Assessment & Plan: Hyponatremia with Na of 130 on 08/14 -Monitor with AM BMP -Consider hypertonic saline as treatment if Na <130 08/16: Na 128. Continue to monitor and encourage PO intake. Likely secondary to hypovolemia Status: Acute (9) 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 Assessment & Plan: -Appreciate plan per cardiology -Continue to monitor BP -Resume home medications Status: Chronic (10) Atrial fibrillation Assessment & Plan: -Appreciate plan per Cardiology -Hold Eliquis 5mg PO BID, appreciate plan per Heme/Onc Qualifiers: Qualified Codes: I48.0 - Paroxysmal atrial fibrillation Status: Chronic (11) Generalized weakness Assessment & Plan: Likely secondary to anemia, appreciate plan per lymphoma diagnosis Status: Acute Discharge Summary-Simple/Stand Consultations Dr Bustos: Hematology/Oncology Dr Sherman: Cardiology Discharge Physical Examination Allergies: Coded Allergies: No Known Drug Allergies (Unverified , 01/23/18) Vitals & I&Os Vital Sign - Last 12Hours Date Time Temp Pulse Resp B/P (MAP) Pulse Ox O2 Delivery O2 Flow Rate FiO2 08/18/22 08:01 37.1 75 18 111/57 (75) 91 High Flow N/C 5.00 Intake and Output 08/18/22 00:00 Intake Total 500 ml Output Total 350 ml Balance 150 ml General Appearance: Alert, Oriented X3, Other (Resting comfortably and pain controlled at rest) HEENT: Other (Pale skin) Respiratory: Clear to Auscultation Abdominal: Soft, Other (moderate ttp diffuse abdomen) Extremities: No Edema, No Tenderness/Swelling Neuro: Normal Speech, Other (Hard of hearing) Hospital Course See final discharge diagnosis. Radiology Reviewed NAME: DAISHA [facility] REC#: [id number] PT STATUS: ADM IN : 1935 PHYSICIAN: ABEL BUSTOS MD ADMIT DATE: 08/13/22 Draft Date of Exam:08/14/22 CT ABDOMEN/PELVIS W WO PROCEDURE: CT abdomen and pelvis with and without contrast. TECHNIQUE: Precontrast acquisitions were acquired through the abdomen and pelvis. Multiple contiguous axial images were obtained through the abdomen and pelvis after the administration of intravenous contrast. Auto Exposure Controls were utilized during the CT exam to meet ALARA standards for radiation dose reduction. INDICATION: Lymphoma progression and abdominal pain. COMPARISON: No prior studies are available for comparison. FINDINGS: There are trace bilateral pleural effusions and bibasilar atelectasis. There is a calcified granuloma in the left lower lobe. No discrete liver mass is detected. The gallbladder is surgically absent. The pancreas and spleen are unremarkable. No adrenal mass is identified. There is significant upper abdominal lymphadenopathy. There is significant bulky lymphadenopathy in the retroperitoneum. An aortocaval mass at the level of the upper pole of the kidneys measures approximately 7.6 x 4.4 cm. A left periaortic jose mass is 3.7 cm in transverse diameter. There are some enlarged lymph nodes in the ximena hepatis and portacaval regions as well. A jose mass anterior to the left psoas muscle at the level of the left common iliac artery appears to obstruct the left ureter and produces moderate left-sided hydroureteronephrosis. This jose mass measures 4.1 x 4.1 cm. There are some enlarged lymph nodes in the right common iliac region as well. No significant enlarged lymph nodes in the inguinal regions or obturator regions are seen. The bladder is decompressed. The aorta is calcified but nonaneurysmal. Bowel loops are of normal caliber. No significant ascites is seen. The uterus is surgically absent. There is a large amount of artifact through the pelvis from the right hip prosthesis. IMPRESSION: 1. Trace bilateral pleural effusions with bibasilar atelectasis. 2. Significant abdominal and pelvic lymphadenopathy in keeping with the patient's diagnosis of lymphoma. A jose mass does appear to produce extrinsic compression upon the left ureter in the the proximal to midportion producing moderate left sided hydroureteronephrosis. Dictated on workstation # [id number] Dict: 08/14/22 0933 Trans: 08/14/22 0946 [id number] Interpreted by: HELENA HEAD MD Electronically signed by: Discussion & Recommendations 86 yo F that presented with worsening abdominal pain that has been seeing Dr Bustos for probable Lymphoma with extensive Retroperitoneal lymphadenopathy. Repeat CT done this admission shows advancement of masses that are causing some urinary obstruction. Patient does not wish to proceed with biospy at this time and patient and family have elected for hospice care. Discharge Condition at discharge poor prognosis Instructions to patient/family Please see electronic discharge instructions given to patient. Discharge Medications Reviewed and agree with Discharge Medication list on patient's Discharge I nstruction sheet CAROL SAM MD Aug 18, 2022 10:34
[2022-08-18] MEDS ORDERED: OXC10TCR PO (10:50)
[2022-08-18] MEDS ORDERED: OXYC10TA7 PO (10:50)
[2022-08-18] MEDS ORDERED: ALPR0.254 PO (10:50)
[2022-08-18 12:10] VITALS: BP 121/59
[2022-08-18 13:00] VITALS: BP 121/59
== END 2022-08-18 13:00 | disposition hospice, inpatient (51) | DRG 871 ==
LOC: EDUNIT# 01:30 → ER 01:30 → 4TH 03:30
PROVIDERS: ADMIT Internal Medicine; ATTEND Family Medicine
DX: A41.59 Other Gram-negative sepsis (principal); J96.01 Acute respiratory failure with hypoxia; N13.6 Pyonephrosis; N17.9 Acute kidney failure, unspecified; E87.1 Hypo-osmolality and hyponatremia; C85.93 Non-Hodgkin lymphoma, unspecified, intra-abdominal lymph nodes; I44.2 Atrioventricular block, complete; I47.1 Supraventricular tachycardia; Z66 Do not resuscitate; Z51.5 Encounter for palliative care; Z20.822 Contact with and (suspected) exposure to COVID-19; I48.0 Paroxysmal atrial fibrillation; D64.9 Anemia, unspecified; E83.52 Hypercalcemia; E87.6 Hypokalemia; F41.9 Anxiety disorder, unspecified; I12.9 Hypertensive chronic kidney disease with stage 1 through stage 4 chronic kidney disease, or unspecified chronic kidney disease; N18.32 Chronic kidney disease, stage 3b; I25.10 Atherosclerotic heart disease of native coronary artery without angina pectoris; K21.9 Gastro-esophageal reflux disease without esophagitis; M81.0 Age-related osteoporosis without current pathological fracture; G47.30 Sleep apnea, unspecified; E78.00 Pure hypercholesterolemia, unspecified; M79.7 Fibromyalgia; F32.A Depression, unspecified; H91.90 Unspecified hearing loss, unspecified ear; H54.7 Unspecified visual loss; Z95.0 Presence of cardiac pacemaker; Z79.01 Long term (current) use of anticoagulants
CPT/HCPCS: 36415; 71045; 74178; 80048; 80053; 81000; 82550; 82607; 83540; 83605; 83615; 83735; 84550; 85007; 85025; 85027; 85610; 85730; 86141; 86850; 86900; 86901; 86922; 87040; 87077; 87088; 87186; 87636; 94640; 94760